=== PATIENT | male | born 1980 | race Hispanic/Latino ===

== ENCOUNTER → 2017-11-08 07:52 | Outpatient (CLI) | payer OTHER, SELFPAY ==
[2017-11-08 10:41] LABS: Hemoglobin A1C% w Est Avg Glu 5.7 % (4.0-6.0)
[2017-11-08 11:09] LABS: Alanine Aminotransferase 41 IU/L (21-72); Albumin 4.3 g/dL (3.5-5.0); Albumin Globulin Ratio 1.6 (1.0-2.8); Alkaline Phosphatase 62 U/L (38-126); Aspartate Aminotransferase 31 IU/L (17-59); BUN Creatinine Ratio 11.1 (6-22); Bilirubin Total 0.6 mg/dL (0.2-1.3); Calcium 8.8 mg/dL (8.4-10.2); Estimated Glomerular Filt Rate > 60.0 mL/min (>60); Globulin 2.7 g/dL (1.7-4.1); Glucose 89 mg/dL (70-100); HEMOLYSIS 17 (0-50); Potassium 3.9 mmol/L (3.4-5.1); Sodium 137 mmol/L (137-145); Uric Acid 4.5 mg/dL (3.5-8.5)
[2017-11-08 13:17] LABS: Erythrocyte Sedimentation Rate 7 MM/HR (0-15)
== END ==
PROVIDERS: PCP Physician Assistant; Visit Provider Physician Assistant
DX: R60.0 Localized edema (principal); S99.912A Unspecified injury of left ankle, initial encounter; I10 Essential (primary) hypertension; E11.9 Type 2 diabetes mellitus without complications
CPT/HCPCS: 36415; 80053; 83036; 84550; 85651

== ENCOUNTER 2018-01-23 03:07 | Emergency (ER) | payer OTHER, SELFPAY ==
[2018-01-23 03:24] VITALS: BP 110/56; PULSE 72; RESP 16; TEMP 37.1; O2SAT 96; BMI 48.8
--- NOTE | 2018-01-23 04:21 | ED.SKABFB ---
HPI - Skin/Abscess/Foreign Bdy General Chief complaint: Skin/Abscess/Foreign Body Stated complaint: STATES COUPLE OF LEFTS UNDER LEFT ARMPIT Time Seen by Provider: 01/23/18 04:21 Source: patient Mode of arrival: ambulatory Limitations: no limitations History of Present Illness HPI narrative: The patient developed left axillary pain and swelling 3 days ago. Pain and swelling continues to increase. He denies fever but he has had chills. He has had no injury to that site. He has no injuries to the left arm. Three days ago he developed redness on his left chest, near his nipple. He has been in a hot tub, there has been no trauma at that site. He is diabetic, he has no chronic skin illness. Related Data Previous Rx's Medication Instructions Recorded [Glucometer ] #1 10/04/16 [Insulin Pen needles] #200 10/04/16 insulin aspart U-100 [Novolog 15 - 35 unit SQ TIDCC #10 units 10/13/16 Flexpen U-100 Insulin] insulin glargine [Lantus Solostar 30 unit SQ BID #5 units 10/13/16 U-100 Insulin] atorvastatin [Lipitor] 10 mg PO HS #90 tab 04/06/17 Glucose: Test Strips str 6XDAILY #50 07/11/17 trazodone 200 mg PO HSP PRN #60 tab 07/11/17 benzonatate [Tessalon Perles] 100 mg PO BIDP PRN #30 cap 08/22/17 fexofenadine 180 mg PO QDAYP PRN #30 tab 08/22/17 fluticasone 1 spray INTRANASAL QDAY #16 gm 08/22/17 cetirizine 10 mg PO BID #30 tab 09/29/17 nystatin [Nystop] 100,000 unit TOPICAL BID #30 gm 09/29/17 prednisone 20 mg PO Q DAY #3 tab 09/29/17 Lancet: Device ea #200 10/23/17 [place] ea #200 10/23/17 losartan [Cozaar] 50 mg PO BID #180 tab 10/25/17 testosterone cypionate 200 mg IM QWEEK #5 ea 10/26/17 [Depo-Testosterone] ziprasidone HCl [Geodon] 60 mg PO BID #60 cap 10/26/17 fluoxetine 80 mg PO HS #60 cap 12/26/17 prazosin [Minipress] 10 mg OR HS #60 cap 12/26/17 propranolol 40 mg PO TID #90 tab 12/26/17 amoxicillin-pot clavulanate 1 tab PO BID #20 tab 01/23/18 [Augmentin] Allergies Allergy/AdvReac Type Severity Reaction Status Date / Time No Known Drug Allergies Allergy Verified 01/23/18 03:30 Review of Systems Constitutional Reports chills, Denies fever(s), Reports lethargy and Denies weakness Cardiovascular Denies chest pain, Denies rapid heart rate, Denies edema and Reports dyspnea Respiratory Denies change in phlegm color, Denies chest congestion, Denies cough and Reports dyspnea Gastrointestinal Gastrointestinal: Denies abdominal pain, Denies nausea and Denies vomiting Musculoskeletal Denies back pain and Denies muscle weakness Integumentary/Breasts Reports as per HPI, Reports erythema and Reports skin swelling Neurologic Denies weakness PFSH Family History Father Hyperlipidemia Mother Diabetes mellitus Hypertension Hyperlipidemia Social History Smoking Status: Never smoker Exam Initial Vital Signs Initial Vital Signs: Vital Signs Temperature 98.8 F 01/23/18 03:24 Pulse Rate 72 01/23/18 03:24 Respiratory Rate 16 01/23/18 03:24 Blood Pressure 110/56 L 01/23/18 03:24 Pulse Oximetry 96 01/23/18 03:24 Const General: cooperative, healthy appearing, comfortable, well developed, well groomed and No diaphoretic Neck Neck: No lymphadenopathy and No tender Chest Chest: other (Erythema at 5 o'clock just outside the left nipple. Slight tenderness and warmth to the site. No mass.) Resp Auscultation: clear to auscultation bilaterally Cardio Rate: regular rate Rhythm: regular rhythm Heart Sounds: no click, no gallops, no murmurs and no rubs Pulses: normal peripheral pulses Skin General: other (Erythema in the left axilla with palpable, enlarged tender lymphadenopathy. One node is about 1.5 cm. The other node is 0.5 cm.) Procedures Misc Procedure Name of Procedure: Wound aspiration: The patient has an area of swelling and tenderness in the left axilla. What appeared to be a fluid-filled cavity was identified with ultrasound. I attempted to aspirate the site with an 18 gauge needle. There was a slight amount of bloody discharge, no purulent discharge. Patient tolerated procedure well. Course Hospital Course: He was started on Augmentin prior to discharge. Vital Signs - 8 hr 01/23/18 03:24 Temperature 98.8 F Pulse Rate 72 Respiratory Rate 16 Blood Pressure 110/56 L Pulse Oximetry 96 Discharge Plan Departure Patient Disposition: Home, Self-Care Clinical Impression: Acute lymphangitis of axilla Instructions: DI for Lymphangitis-Adult Activity Restrictions/Additional Instructions: Take the Augmentin as prescribed. Advil 3 tablets every 6 hr as needed for pain. Return here for increasing redness, increased swelling, or fever. Prescriptions: New amoxicillin-pot clavulanate [Augmentin] 875-125 mg tablet 1 tab PO BID Qty: 20 RF: 0 No Action [Insulin Pen needles] Qty: 200 RF: 11 [Glucometer ] Qty: 1 RF: 0 insulin aspart U-100 [Novolog Flexpen U-100 Insulin] 100 UNIT/1 ML insulin pen 15 - 35 unit SQ TIDCC Qty: 10 RF: 11 insulin glargine [Lantus Solostar U-100 Insulin] 100 UNIT/1 ML insulin pen 30 unit SQ BID Qty: 5 RF: 11 atorvastatin [Lipitor] 10 MG tablet 10 mg PO HS Qty: 90 RF: 3 Glucose: Test Strips 6XDAILY Qty: 50 RF: 6 trazodone 100 MG tablet 200 mg PO HSP PRNQty: 60 RF: 5 fexofenadine 180 MG tablet 180 mg PO QDAYP PRNQty: 30 RF: 1 benzonatate [Tessalon Perles] 100 MG capsule 100 mg PO BIDP PRNQty: 30 RF: 1 fluticasone 16 GM spray,suspension 1 spray Intranasal QDAY Qty: 16 RF: 0 cetirizine 10 MG tablet 10 mg PO BID Qty: 30 RF: 0 prednisone 20 MG tablet 20 mg PO Q DAY Qty: 3 RF: 0 nystatin [Nystop] 30 GM powder 100,000 unit Topical BID Qty: 30 RF: 0 [place] Qty: 200 RF: 6 Lancet: Device Qty: 200 RF: 6 losartan [Cozaar] 50 MG tablet 50 mg PO BID Qty: 180 RF: 3 testosterone cypionate [Depo-Testosterone] 200 MG/1 ML oil 200 mg IM QWEEK Qty: 5 RF: 5 ziprasidone HCl [Geodon] 60 MG capsule 60 mg PO BID Qty: 60 RF: 3 prazosin [Minipress] 5 mg capsule 10 mg OR HS Qty: 60 RF: 5 fluoxetine 40 mg capsule 80 mg PO HS Qty: 60 RF: 3 propranolol 40 mg tablet 40 mg PO TID Qty: 90 RF: 3
[2018-01-23] MEDS: AMOXICILLIN/CLAV 875/125 MG 1 TAB PO (05:40)
[2018-01-23 05:46] VITALS: BP 109/52; PULSE 68; RESP 20; O2SAT 94
[2018-01-23 06:03] VITALS: BP 112/82; PULSE 74; RESP 16; O2SAT 100
== END 2018-01-23 06:05 | disposition home or self-care (01) ==
PROVIDERS: Emergency Provider Emergency Medicine; Family Provider Physician Assistant; PCP Physician Assistant
DX: L03.129 Acute lymphangitis of unspecified part of limb (principal)
CPT/HCPCS: 99282; 99283

== ENCOUNTER → 2018-02-06 06:56 | Outpatient (CLI) | payer OTHER, SELFPAY ==
[2018-02-06 08:50] LABS: Creatinine Urine Random 245.1 mg/dL
[2018-02-06 08:54] LABS: Alanine Aminotransferase 52 IU/L (21-72); Albumin 4.2 g/dL (3.5-5.0); Albumin Globulin Ratio 1.5 (1.0-2.8); Alkaline Phosphatase 55 U/L (38-126); Aspartate Aminotransferase 41 IU/L (17-59); BUN Creatinine Ratio 11.1 (6-22); Bilirubin Total 0.7 mg/dL (0.2-1.3); Blood Urea Nitrogen 10 mg/dL (9-20); Calcium 8.7 mg/dL (8.4-10.2); Carbon Dioxide 32 mmol/L (22-32); Chloride 96 mmol/L (98-107); Cholesterol 127 mg/dL (140-199); Estimated Glomerular Filt Rate > 60.0 mL/min (>60); Globulin 2.8 g/dL (1.7-4.1); Glucose 97 mg/dL (70-100); HDL Cholesterol 27 mg/dL (40-60); HEMOLYSIS 15 (0-50); LDL Cholesterol Calculated 63 mg/dL (<100); Potassium 3.6 mmol/L (3.4-5.1); Sodium 137 mmol/L (137-145); Triglycerides 183 mg/dL (35-150)
[2018-02-06 08:55] LABS: Microalbumi Creatinin Ratio Ur 10.6 ug/mg CR (<30); Microalbumin Urine Random 2.6 mg/dL (0-1.6)
[2018-02-06 09:06] LABS: Vitamin D 25 Hydroxy (D3) 24.1 ng/mL (30.0-100.0)
[2018-02-07 05:17] LABS: Hemoglobin A1C% w Est Avg Glu 5.7 % (4.0-6.0)
[2018-02-12 15:15] LABS: Albumin 4.3
== END ==
PROVIDERS: PCP Family Medicine; Visit Provider Physician Assistant
DX: E11.9 Type 2 diabetes mellitus without complications (principal); R79.89 Other specified abnormal findings of blood chemistry; E55.9 Vitamin D deficiency, unspecified
CPT/HCPCS: 36415; 80053; 80061; 82040; 82043; 82306; 82570; 83036; 84270; 84403

== ENCOUNTER → 2018-03-02 09:33 | Outpatient (CLI) | payer OTHER, SELFPAY ==
[2018-03-02 11:36] LABS: Hepatitis B Surface Antigen NEGATIVE s/c (NEGATIVE)
[2018-03-02 11:54] LABS: HIV 1 and 2 Antibody NEGATIVE (NEGATIVE); Hep C Virus Ab w/Reflex Quant NEGATIVE s/c (NEGATIVE)
[2018-03-02 13:22] LABS: Urine N gonorrhoeae NOT DETECTED
[2018-03-02 13:35] LABS: Urine Chlamydia NOT DETECTED
[2018-03-09 08:01] LABS: Rapid Plasma Reagin NON-REACTIVE
== END ==
PROVIDERS: Family Provider Physician Assistant; PCP Physician Assistant; Visit Provider Physician Assistant
DX: Z11.3 Encounter for screening for infections with a predominantly sexual mode of transmission (principal)
CPT/HCPCS: 36415; 86592; 86703; 86803; 87340; 87491; 87591

== ENCOUNTER 2018-04-22 03:14 | Emergency (ER) | payer OTHER, SELFPAY ==
--- NOTE | 2018-04-22 03:20 | ED.SKABFB ---
HPI - Skin/Abscess/Foreign Bdy General Chief complaint: Skin/Abscess/Foreign Body Stated complaint: rash all over neck for 1 week itchy everywhere Time Seen by Provider: 04/22/18 03:20 Source: patient Mode of arrival: ambulatory Limitations: no limitations History of Present Illness HPI narrative: Patient is a 37-year-old male who presents with all rash just around her neck. He says been there for about a week extremely pruritic. He says he has had this off and on throughout his life some doctors have diagnosed him with tinea versicolor, other is a fungus. He said last time he had this about 6 months ago he got prednisone and Benadryl he said it went away. He is requesting prednisone today. The itching has prevented him from sleeping tonight. The rash is no were else on his body. He says his blood sugars have been well controlled with insulin. He denies any new soaps the he does not were necklaces he does work colored daily. MD complaint: rash Related Data Previous Rx's Medication Instructions Recorded [Glucometer ] #1 10/04/16 [Insulin Pen needles] #200 10/04/16 Lancet: Device ea #200 10/23/17 [place] ea #200 10/23/17 losartan [Cozaar] 50 mg PO BID #180 tab 10/25/17 Glucose: Test Strips #1 ea 01/26/18 insulin aspart U-100 100 unit/mL 15 - 35 unit SUBCUT TIDCC #10 units 01/30/18 subcutaneous pen insulin glargine (U-100) 100 30 unit SUBCUT BID #5 units 01/30/18 unit/mL (3 mL) subcutaneous pen atorvastatin 10 mg tablet 10 mg PO HS #90 tab 02/01/18 fluoxetine 40 mg capsule 80 mg PO HS #180 cap 02/01/18 prazosin 5 mg capsule 10 mg PO HS #180 cap 02/01/18 propranolol 40 mg tablet 40 mg PO TID #270 tab 02/01/18 trazodone 100 mg tablet 200 mg PO HSP PRN #180 tab 02/01/18 ziprasidone 60 mg capsule 60 mg PO BID #180 cap 02/01/18 insulin regular human U-500 See Label Instructions SUBCUT ONCE 02/02/18 concentrate 500 unit/mL(3 mL) #6 ml subcut pen diphenhydramine HCl [Benadryl] 25 mg PO Q6H PRN #20 cap 04/22/18 hydrocortisone 1 applictn TOP BID PRN #14.2 gram 04/22/18 Allergies Allergy/AdvReac Type Severity Reaction Status Date / Time No Known Drug Allergies Allergy Verified 03/02/18 09:11 Review of Systems Review of Systems GENERAL: Denies chills,fever HEENT: Denies throat pain RESPIRATORY: Denies dyspnea, cough, wheezing CARDIOVASCULAR: Denies chest pain, palpitations GASTROINTESTINAL: Denies nausea, vomiting MUSCULOSKELETAL: Denies extremity pain, injury SKIN: See HPI NEUROLOGIC: Denies weakness, dizziness, headache, numbness 8 point review of systems is negative except for those stated above and HPI PFSH Medical History Colitis (Acute) Anxiety (Chronic) Bipolar disorder (Chronic) Chronic back pain (Chronic) Depression (Chronic) Diabetes (Chronic) Erectile dysfunction (Chronic) Hyperlipemia (Chronic) Hypertension (Chronic) Low testosterone (Chronic) PTSD (post-traumatic stress disorder) (Chronic) Schizophrenia (Chronic) Surgical History Hx of discectomy (Resolved 2009) Hx of surgical procedure (Resolved 2005) Social History Smoking Status: Never smoker second hand exposure: No alcohol intake: never substance use type: does not use Exam Initial Vital Signs Initial Vital Signs: Vital Signs Temperature 97.1 F L 04/22/18 03:21 Pulse Rate 59 L 04/22/18 03:21 Respiratory Rate 16 04/22/18 03:21 Blood Pressure 131/80 04/22/18 03:21 Pulse Oximetry 97 04/22/18 03:21 GENERAL: Morbidly obese well-appearing male no acute distress HEENT: Head atraumatic,EOMI, pupils reactive, face symmetric CARDIOVASCULAR: Regular rate and rhythm without murmurs, rubs or gallops. RESPIRATORY: Breath sounds equal bilaterally, no wheezes rales or rhonchi. EXTREMITIES: Normal range of motion, no clubbing or edema. Neurovascularly intact NEUROLOGICAL: Alert and oriented x4.Normal gait and speech. Cranial nerves II through XII grossly intact. SKIN: Minimal redness noted on right and left side within the creases of the neck no rash or erythema posterior neck no other rash noted on any part of the body. No hives no petechiae or vesicles. Course Orders Ordered: Diphenhydramine HCl (Benadryl) 50 mg PO NOW ONE Stop: 04/22/18 03:36 Last Admin: 04/22/18 03:35 Dose: 50 mg Discontinued Medications Prednisone (Deltasone) 20 mg PO NOW ONE Stop: 04/22/18 03:29 Last Admin: 04/22/18 03:33 Dose: 20 mg Vital Signs - 8 hr 04/22/18 03:21 Temperature 97.1 F L Pulse Rate 59 L Respiratory Rate 16 Blood Pressure 131/80 Pulse Oximetry 97 MDM - Skin/Abscess/Foreign Bdy MDM Narrative Medical decision making narrative: Patient is fairly adamant about getting a dose of prednisone. I did try to explain he does not need systemic medication topical cream a work just fine. I also recommended [id number] Benadryl which he would like a prescription for. His appointment with his PCP in 5 days. Discharge Plan Departure Patient Disposition: Home Clinical Impression: Dermatitis Discharge Date/Time: 04/22/18 03:37 Instructions: Eczema, Contact Dermatitis Activity Restrictions/Additional Instructions: *You have been diagnosed with dermatitis *What to do: This is localized and likely caused by something that is directly irritating it and it prescription for prednisone is not indicated at this time *Continue to take medications as directed: Prescriptions have been faxed to [facility] in [place] Hydrocortisone cream twice a day for 1 week Benadryl 25-50 mg every 6 hr if needed for severe itching this does cause drowsiness *Follow up with your primary care provider in 2-3 days *Return to ER if you should have any new, worsening or concerning symptoms Prescriptions: New hydrocortisone 1 % cream 1 applictn TOP BID PRN (Reason: skin irritation) Qty: 14.2 RF: 0 diphenhydramine HCl [Benadryl] 25 mg capsule 25 mg PO Q6H PRN (Reason: itching) Qty: 20 RF: 0 No Action fluoxetine 40 mg capsule 80 mg PO HS Qty: 180 RF: 3 atorvastatin [Lipitor] 10 mg tablet 10 mg PO HS Qty: 90 RF: 3 prazosin [Minipress] 5 mg capsule 10 mg PO HS Qty: 180 RF: 3 propranolol 40 mg tablet 40 mg PO TID Qty: 270 RF: 3 trazodone 100 mg tablet 200 mg PO HSP PRN (Reason: insomnia) Qty: 180 RF: 1 ziprasidone HCl [Geodon] 60 mg capsule 60 mg PO BID Qty: 180 RF: 3 [Insulin Pen needles] Qty: 200 RF: 11 [Glucometer ] Qty: 1 RF: 0 [place] Qty: 200 RF: 6 Lancet: Device Qty: 200 RF: 6 losartan [Cozaar] 50 MG tablet 50 mg PO BID Qty: 180 RF: 3 Glucose: Test Strips .Route .MEDSUPPLY Qty: 1 RF: 6 insulin aspart U-100 [Novolog Flexpen U-100 Insulin] 100 unit/mL insulin pen 15 - 35 unit SUBCUT TIDCC Qty: 10 RF: 11 insulin glargine [Lantus Solostar U-100 Insulin] 100 unit/mL (3 mL) insulin pen 30 unit SUBCUT BID Qty: 5 RF: 11 insulin regular hum U-500 conc [Humulin R U-500 (Conc) Kwikpen] 500 unit/mL (3 mL) insulin pen See Label Instructions SUBCUT ONCE Qty: 6 RF: 3
[2018-04-22 03:21] VITALS: BP 131/80; PULSE 59; RESP 16; TEMP 36.2; O2SAT 97; BMI 46.1
[2018-04-22] MEDS: predniSONE 20 MG TABLET PO (03:33)
[2018-04-22] MEDS: diphenhydrAMINE 25 MG TABLET 50 MG PO (03:35)
== END 2018-04-22 03:37 | disposition home or self-care (01) ==
PROVIDERS: Emergency Provider Emergency Medicine; Family Provider Physician Assistant; PCP Physician Assistant
DX: L30.9 Dermatitis, unspecified (principal)
CPT/HCPCS: 99282; 99283

== ENCOUNTER → 2018-06-26 06:50 | Outpatient (CLI) | payer OTHER, SELFPAY ==
[2018-06-26 08:30] LABS: Add Manual Diff / Slide Review NO; Basophils Percent Auto 0.4 % (0-2); Eosinophils Percent Auto 0.5 % (2-4); Hematocrit 41.5 % (41-53); Lymphocytes Percent Auto 39.7 % (25-40); Mean Corpuscular HGB Conc 33.7 % (30-36); Mean Corpuscular Hemoglobin 31.5 PG (26-34); Mean Corpuscular Volume 93.5 fL (80-100); Monocytes Percent Auto 8.1 % (3-14); Neutrophils Absolute Auto 3000 /uL (1500-7000); Neutrophils Percent Auto 51.3 % (50-75); Platelet Count 165 X10^3/uL (150-400); Red Blood Cell Count 4.44 X10^6/uL (4.5-5.9); Red Cell Distribution Width 14.3 % (11.6-14.8); White Blood Cell Count 5.9 X10^3/uL (4.5-11.0)
[2018-06-26 08:57] LABS: Alanine Aminotransferase 56 IU/L (21-72); Albumin 4.3 g/dL (3.5-5.0); Albumin Globulin Ratio 1.4 (1.0-2.8); Alkaline Phosphatase 71 U/L (38-126); Aspartate Aminotransferase 28 IU/L (17-59); Bilirubin Total 0.4 mg/dL (0.2-1.3); Blood Urea Nitrogen 8 mg/dL (9-20); Calcium 8.8 mg/dL (8.4-10.2); Carbon Dioxide 28 mmol/L (22-32); Chloride 102 mmol/L (98-107); Estimated Glomerular Filt Rate > 60.0 mL/min (>60); Glucose 97 mg/dL (70-100); HEMOLYSIS < 15 (0-50); Potassium 4.1 mmol/L (3.4-5.1); Sodium 143 mmol/L (137-145); Total Protein 7.3 g/dL (6.3-8.2)
[2018-06-26 10:22] LABS: Hepatitis B Surface Antigen NEGATIVE s/c (NEGATIVE)
[2018-06-26 10:54] LABS: HIV 1 and 2 Antibody NEGATIVE (NEGATIVE); Hep C Virus Ab w/Reflex Quant NEGATIVE s/c (NEGATIVE)
[2018-06-26 11:08] LABS: Urine N gonorrhoeae NOT DETECTED
[2018-06-26 12:35] LABS: Urine Chlamydia NOT DETECTED
[2018-06-27 21:27] LABS: RPR Screen Nonreactive (Nonreactive)
== END ==
PROVIDERS: Family Provider Physician Assistant; PCP Physician Assistant; Visit Provider Physician Assistant
DX: R19.7 Diarrhea, unspecified (principal); Z11.3 Encounter for screening for infections with a predominantly sexual mode of transmission
CPT/HCPCS: 36415; 80053; 85025; 86592; 86703; 86803; 87015; 87045; 87340; 87427; 87491; 87591; 87899

== ENCOUNTER 2018-07-10 11:53 | Emergency (ER) | payer OTHER, SELFPAY ==
[2018-07-10 11:57] VITALS: BP 116/73; PULSE 62; RESP 20; TEMP 36.1; O2SAT 97; BMI 48.0
== END 2018-07-10 12:54 | disposition left against medical advice (07) ==
PROVIDERS: Family Provider Physician Assistant; PCP Physician Assistant
DX: K62.5 Hemorrhage of anus and rectum (principal)
CPT/HCPCS: 99281; 99282

== ENCOUNTER → 2018-07-24 09:28 | Outpatient (CLI) | payer OTHER, SELFPAY | PROVIDERS: Family Provider Physician Assistant; PCP Physician Assistant; Visit Provider Physician Assistant | DX: L02.91 Cutaneous abscess, unspecified (principal) | CPT/HCPCS: 87070; 87077; 87147; 87205 ==

== ENCOUNTER → 2018-08-30 11:05 | Outpatient (CLI) | payer OTHER, SELFPAY ==
[2018-08-30 12:15] LABS: Hemoglobin A1C% w Est Avg Glu 5.4 % (4.0-6.0)
[2018-08-30 12:21] LABS: Cholesterol 177 mg/dL (140-199); HDL Cholesterol 36 mg/dL (40-60); LDL Cholesterol Calculated 91 mg/dL (<100); Triglycerides 252 mg/dL (35-150)
[2018-08-30 12:35] LABS: Vitamin D 25 Hydroxy (D3) 25.1 ng/mL (30.0-100.0)
[2018-08-30 13:16] LABS: HIV 1 and 2 Antibody NEGATIVE (NEGATIVE); Hep C Virus Ab w/Reflex Quant NEGATIVE s/c (NEGATIVE)
[2018-08-30 13:29] LABS: Urine N gonorrhoeae NOT DETECTED
[2018-08-30 13:37] LABS: Urine Chlamydia NOT DETECTED
[2018-08-31 15:13] LABS: Hepatitis B Core Antibody Nonreactive (Nonreactive)
[2018-09-01 14:06] LABS: RPR Screen Nonreactive (Nonreactive)
[2018-09-01 19:17] LABS: HSV 1 IgM Screen Negative (Negative); HSV 2 IgM Screen Negative (Negative)
== END ==
PROVIDERS: Family Provider Physician Assistant; PCP Physician Assistant; Visit Provider Physician Assistant
DX: Z11.3 Encounter for screening for infections with a predominantly sexual mode of transmission (principal); E11.9 Type 2 diabetes mellitus without complications; E55.9 Vitamin D deficiency, unspecified; E66.01 Morbid (severe) obesity due to excess calories; Z68.43 Body mass index [BMI] 50.0-59.9, adult
CPT/HCPCS: 80061; 82306; 83036; 86592; 86694; 86703; 86704; 86803; 87491; 87591

== ENCOUNTER 2018-09-12 22:44 | Emergency (ER) | payer OTHER, SELFPAY ==
[2018-09-12 22:54] VITALS: BP 136/63; PULSE 72; RESP 18; TEMP 36.4; O2SAT 98; BMI 51.5
--- NOTE | 2018-09-13 00:48 | ED_ITS ---
HPI - Skin/Abscess/Foreign Bdy General Chief complaint: Skin/Abscess/Foreign Body Stated complaint: STATES INFECTION IN WAISTBAND AREA Time Seen by Provider: 09/13/18 00:33 Source: patient Mode of arrival: ambulatory Limitations: no limitations History of Present Illness HPI narrative: The patient has a area on his right lower abdomen he refers to as an abscess. The lesions started 3 weeks ago, he describes a red hot area with tenderness. There was no purulent drainage. He has no fever or chills. He is diabetic, however his hemoglobin A1c shows significant well-controlled. He is having ongoing swelling to the area. There is no redness at this time. There is no purulent discharge. He has had no injury to the site. He has no chronic skin disease. Related Data Home Medications Medication Instructions Recorded Confirmed Fluoxetine 40 mg See Rx Instructions .ROUTE .COMPLEX 04/26/18 08/31/18 One Touch Test Strips #1 ea 04/26/18 08/31/18 Previous Rx's Medication Instructions Recorded [Glucometer ] #1 10/04/16 [Insulin Pen needles] #200 10/04/16 Lancet: Device ea #200 10/23/17 [place] ea #200 10/23/17 losartan [Cozaar] 50 mg PO BID #180 tab 10/25/17 insulin glargine (U-100) 100 30 unit SUBCUT BID #5 units 01/30/18 unit/mL (3 mL) subcutaneous pen atorvastatin 10 mg tablet 10 mg PO HS #90 tab 02/01/18 prazosin 5 mg capsule 10 mg PO HS #180 cap 02/01/18 propranolol 40 mg tablet 40 mg PO TID #270 tab 02/01/18 ziprasidone 60 mg capsule 60 mg PO BID #180 cap 02/01/18 insulin regular human U-500 See Rx Instructions SUBCUT ONCE #6 02/02/18 concentrate 500 unit/mL(3 mL) ml subcut pen diphenhydramine HCl [Benadryl] 25 mg PO Q6H PRN #20 cap 04/22/18 hydrocortisone 1 applictn TOP BID PRN #14.2 gram 04/22/18 trazodone 100 mg tablet 200 mg PO HSP PRN #180 tab 09/10/18 Allergies Allergy/AdvReac Type Severity Reaction Status Date / Time No Known Drug Allergies Allergy Verified 08/31/18 10:32 Review of Systems Review of Systems ROS Unobtainable: All systems reviewed & are unremarkable except as noted in HPI and below Constitutional Denies chills and Denies fever(s) Gastrointestinal Gastrointestinal: Denies abdominal pain Integumentary/Breasts Comments: Lesion on right lower abdomen [facility] Medical History Colitis (Acute) Anxiety (Chronic) Bipolar disorder (Chronic) Chronic back pain (Chronic) Depression (Chronic) Diabetes (Chronic) Erectile dysfunction (Chronic) Hyperlipemia (Chronic) Hypertension (Chronic) Low testosterone (Chronic) PTSD (post-traumatic stress disorder) (Chronic) Schizophrenia (Chronic) Surgical History Hx of discectomy (Resolved 2009) Hx of surgical procedure (Resolved 2005) Family History Father Hyperlipidemia Mother Diabetes mellitus Hypertension Hyperlipidemia Grandfather Cancer Grandmother Cancer Social History Smoking Status: Never smoker second hand exposure: No alcohol intake: never substance use type: does not use Social History Smoking Status: Never smoker second hand exposure: No alcohol intake: never substance use type: does not use additional social history: No current social issues Exam Initial Vital Signs Initial Vital Signs: Vital Signs Temperature 97.6 F 09/12/18 22:54 Pulse Rate 72 09/12/18 22:54 Respiratory Rate 18 09/12/18 22:54 Blood Pressure 136/63 09/12/18 22:54 Pulse Oximetry 98 09/12/18 22:54 GI Inspection: non-distended and obesity Skin Other: 2 cm x 1 0.5 cm raised area in the right lower quadrant that is fluctuant. There is no erythema. No other skin lesions. Procedures Abscess I/D Site: abdomen Side (if applicable): right Local Anesthetic: lidocaine 1% Amount of anesthesia used (mL): 2 Technique: incised with #11 blade Amount of fluid expressed (mL): 1.5 Irrigation: Yes Packing used?: iodoform Complications: other (There was bloody discharge from the site with a hematoma. No purulence. ) Course Course Narrative: The patient describes a site that initially presented as an abscess, there is erythema and inflammation. He did respond to antibiotics. He now has a hematoma. The hematoma was drained and packed. Vital Signs - 8 hr 09/12/18 22:54 Temperature 97.6 F Pulse Rate 72 Respiratory Rate 18 Blood Pressure 136/63 Pulse Oximetry 98 Discharge Plan Departure Patient Disposition: Home Clinical Impression: Abdominal wall hematoma Qualifiers: Encounter type: initial encounter Qualified Code(s): S30.1XXA - Contusion of abdominal wall, initial encounter Instructions: DI for Incision and Drainage Activity Restrictions/Additional Instructions: Keep the site covered other than when showering. Put a bandage on until the site drives. Follow-up with her doctor in about 3 days. Return here as needed. Prescriptions: No Action Fluoxetine 40 mg See Patient Comments .ROUTE .COMPLEX RF: 0 One Touch Test Strips Qty: 1 RF: 0 atorvastatin [Lipitor] 10 mg tablet 10 mg PO HS Qty: 90 RF: 3 prazosin [Minipress] 5 mg capsule 10 mg PO HS Qty: 180 RF: 3 propranolol 40 mg tablet 40 mg PO TID Qty: 270 RF: 3 ziprasidone HCl [Geodon] 60 mg capsule 60 mg PO BID Qty: 180 RF: 3 [Insulin Pen needles] Qty: 200 RF: 11 [Glucometer ] Qty: 1 RF: 0 [place] Qty: 200 RF: 6 Lancet: Device Qty: 200 RF: 6 losartan [Cozaar] 50 MG tablet 50 mg PO BID Qty: 180 RF: 3 insulin glargine [Lantus Solostar U-100 Insulin] 100 unit/mL (3 mL) insulin pen 30 unit SUBCUT BID Qty: 5 RF: 11 insulin regular hum U-500 conc [Humulin R U-500 (Conc) Kwikpen] 500 unit/mL (3 mL) insulin pen See Rx Instructions SUBCUT ONCE Qty: 6 RF: 3 trazodone 100 mg tablet 200 mg PO HSP PRN (Reason: insomnia) Qty: 180 RF: 0 hydrocortisone 1 % cream 1 applictn TOP BID PRN (Reason: skin irritation) Qty: 14.2 RF: 0 diphenhydramine HCl [Benadryl] 25 mg capsule 25 mg PO Q6H PRN (Reason: itching) Qty: 20 RF: 0 Referrals: Mary Grace Cruz PA-C [Primary Care Provider] -
[2018-09-13 01:50] VITALS: BP 122/70; PULSE 76; RESP 18; O2SAT 99
== END 2018-09-13 01:51 | disposition home or self-care (01) ==
PROVIDERS: Emergency Provider Emergency Medicine; Family Provider Physician Assistant; PCP Physician Assistant
DX: S30.1XXA Contusion of abdominal wall, initial encounter (principal)
CPT/HCPCS: 10140; 99282; 99283

== ENCOUNTER 2018-09-19 07:27 | Inpatient (IN) | payer OTHER, SELFPAY ==
[2018-09-19] VITALS (9 sets, daily range): BP systolic 109–147; BP diastolic 67–112; PULSE 55–66; RESP 15–20; TEMP 36.3–37.2; O2SAT 96–98; BMI 51.2
--- NOTE | 2018-09-19 | DI.US.S_ITS ---
PROCEDURE: US ABDOMEN COMPLETE INDICATIONS: RULE OUT BILIARY SLUDGE TECHNIQUE: Real-time scanning was performed of the abdominal and retroperitoneal organs, with image documentation. COMPARISON: [facility], CT, CT ABDOMEN PELVIS W CON, 09/19/2018, 8:24. FINDINGS: Quality of visualization is quite limited by very large patient body habitus. Liver: Liver is normal in size and homogeneous in echotexture, hyperechoic consistent with fatty infiltration. Gallbladder: The gallbladder wall appears minimally thickened at 4 mm. No sonographic tenderness is present. Sludge appears present likely within the gallbladder lumen but as noted above quality of visualization is limited. No stones are suspected, however. Biliary ducts: Intrahepatic bile ducts are non-dilated. Extrahepatic bile duct caliber measures 4.0, poorly visualized mm. Normal is 6-7 mm or less in diameter, or 10 mm or less post-cholecystectomy. Pancreas: Poorly visualized due to body habitus and bowel gas. Spleen: Not well-seen due to body habitus and bowel gas. Kidneys: Kidneys are normal in size and echotexture. Right kidney measures 14.0 cm long; left kidney measures 13.4 cm long. No hydronephrosis or nephrolithiasis. No solid masses. Aorta: Visualized aorta is normal in caliber at less than 3 cm. Iliacs: Proximal common iliac arteries are normal in caliber at less than 2.5 cm. IVC: Intrahepatic inferior vena cava is patent. Miscellaneous: No free abdominal fluid. IMPRESSION: Large body habitus and overlying bowel gas obscures significant portions of the peritoneal space in the retroperitoneum. This study shows what appears to be fatty infiltration throughout the liver. It is hyperechoic as a result. Stones are not found within the gallbladder lumen of the gallbladder wall is slightly thickened at 4 mm and contains presumed sludge but no biliary distention is associated. Poor visualization of the pancreas and spleen due to body habitus and bowel gas. Please refer to prior CT scanning earlier same day for further discussion. Overall a definite source of current symptomatology is not seen. Dictated by: Kole Bhagat M.D. on 09/19/2018 at 16:39 Approved by: Kole Bhagat M.D. on 09/19/2018 at 16:44
--- NOTE | 2018-09-19 08:04 | ED.ABDPAIN ---
HPI - Abdominal Pain General Chief Complaint: Abdominal Pain Stated Complaint: L SIDE LOWER ABDOMINAL PAIN Time Seen by Provider: 09/19/18 08:04 Source: patient Mode of arrival: ambulatory Limitations: no limitations History of Present Illness HPI narrative: This is a 37-year-old male who comes to the emergency department with complaint of left lower quadrant pain that started about 24 hr ago. Patient states that it seems to be sort of a burning sensation but feels deep in his abdomen. Been pretty much constant. Nothing made it improved. Patient has not had any fevers, he has felt nauseated but had no vomiting. He has been constipated recently. He did have a bowel movement this morning and stated it was hard. Patient did have a incision and drainage of abdominal wall hematoma but that was on the right inguinal area. This is all on the left side. Patient had some burning with urination once. He has not had any discharge. He states he has been checked for STDs in the past and was negative. Patient has a history of insulin-dependent diabetes as well as hypertension which he takes medication for. He has had back surgery in the past. He states he does have a little bit of back pain that his normal but also has a little bit of that lower left quadrant pain sort of radiating towards the back. Related Data Home Medications Medication Instructions Recorded Confirmed One Touch Test Strips #1 ea 04/26/18 09/19/18 fluoxetine 40 mg capsule 80 mg PO DAILY 04/26/18 09/19/18 Lancet: Device 1 ea MISCELLANEOUS DIRECTED 09/19/18 09/19/18 [place] 1 ea MISCELLANEOUS DIRECTED 09/19/18 09/19/18 [Glucometer ] 1 ea MISCELLANEOUS DIRECTED 09/19/18 09/19/18 atorvastatin [Lipitor] 10 mg PO BEDTIME 09/19/18 09/19/18 insulin glargine [Basaglar KwikPen 10 - 30 units SUBCUT TID-QID 09/19/18 09/19/18 U-100 Insulin] prazosin [Minipress] 10 mg PO BEDTIME 09/19/18 09/19/18 trazodone 200 mg PO BEDTIME 09/19/18 09/19/18 Previous Rx's Medication Instructions Recorded losartan [Cozaar] 50 mg PO BID #180 tab 10/25/17 propranolol 40 mg tablet 40 mg PO TID #270 tab 07/26/18 ziprasidone 60 mg capsule 60 mg PO BID #180 cap 02/01/18 insulin regular human U-500 See Rx Instructions SUBCUT ONCE #6 02/02/18 concentrate 500 unit/mL(3 mL) ml subcut pen Allergies Allergy/AdvReac Type Severity Reaction Status Date / Time No Known Drug Allergies Allergy Verified 09/19/18 07:35 Review of Systems Review of Systems ROS Unobtainable: All systems reviewed & are unremarkable except as noted in HPI and below Constitutional Denies chills, Denies fever(s), Denies lethargy and Denies weakness Gastrointestinal Gastrointestinal: Reports abdominal pain (LLQ), Denies melena, Denies hematochezia, Denies change in bowel habits, Reports constipation, Denies diarrhea, Reports nausea and Denies vomiting Genitourinary Denies hematuria, Reports dysuria (once), Denies flank pain, Denies penile discharge, Denies testicular pain, Denies urinary frequency, Denies urinary hesitancy, Denies urinary incontinence and Denies urinary urgency Musculoskeletal Reports back pain (chronic) Integumentary/Breasts Denies erythema, Denies rash and Reports other (bruising from insulin) Neurologic Denies weakness Endocrine Reports other [facility] Medical History Colitis (Acute) Anxiety (Chronic) Bipolar disorder (Chronic) Chronic back pain (Chronic) Depression (Chronic) Diabetes (Chronic) Erectile dysfunction (Chronic) Hyperlipemia (Chronic) Hypertension (Chronic) Low testosterone (Chronic) PTSD (post-traumatic stress disorder) (Chronic) Schizophrenia (Chronic) Surgical History Hx of discectomy (Resolved 2009) Hx of surgical procedure (Resolved 2005) Family History Father Hyperlipidemia Mother Diabetes mellitus Hypertension Hyperlipidemia Grandfather Cancer Grandmother Cancer Social History household members: family Smoking Status: Never smoker second hand exposure: No alcohol intake: never substance use type: does not use additional social history: No current social issues Family History Father Hyperlipidemia Mother Diabetes mellitus Hypertension Hyperlipidemia Grandfather Cancer Grandmother Cancer Social History household members: family Smoking Status: Never smoker second hand exposure: No alcohol intake: never substance use type: does not use additional social history: No current social issues Exam Narrative Exam Narrative: GENERAL: Alert and oriented x three, Obese male in mild distress. HEENT: Head normocephalic, atraumatic, EOMI, pupils reactive, face symmetric, moist mucous membranes NECK: Supple, full range of motion CARDIOVASCULAR: Regular rate and rhythm without murmurs, rubs or gallops. RESPIRATORY: Breath sounds equal bilaterally, no wheezes rales or rhonchi. ABDOMEN: Soft, Positive for left lower quadrant tenderness just above the pelvis and iliac crest patient has several small areas of bruising consistent with insulin injection sites in which patient states that with these are from. There is no erythema, there is no swelling, fluctuance or signs of cellulitis or abscess. Normoactive bowel sounds all 4 quadrants. No guarding or rebound, rigidity, no mass : No CVA tenderness EXTREMITIES: Normal range of motion, no clubbing or edema. Neurovascularly intact NEUROLOGICAL: Cranial nerves II through XII grossly intact. Moving all extremities SKIN: Warm, dry, no petechiae, no rashes or lesions. Initial Vital Signs Initial Vital Signs: Vital Signs Temperature 98.9 F 09/19/18 07:35 Pulse Rate 64 09/19/18 07:35 Respiratory Rate 20 09/19/18 07:35 Blood Pressure 138/112 H 09/19/18 07:35 Pulse Oximetry 97 09/19/18 07:35 Course Orders Ordered: ED Orders 09/19/18 14:53 Education, smoking cessation ONGOING 09/20/18 05:00 Complete Blood Count AUTO DIFF Routine Comprehensive Metabolic Panel Routine 09/20/18 15:00 Lipase DAILY Bisacodyl (Dulcolax) 10 mg [place] DAILY PRN PRN Reason: Constipation Enoxaparin Sodium (Lovenox) 40 mg SUBCUT BID PATO Hydralazine HCl (Apresoline) 10 mg IV Q6HR PRN PRN Reason: Hypertension Hydromorphone HCl (Dilaudid) 1 mg IV Q4HRWA PRN PRN Reason: Pain, Moderate (4-6) Last Admin: 09/19/18 17:44 Dose: 1 mg Potassium Chloride/Sodium Chloride (Ns With Kcl 20 Meq) 1,000 mls @ 150 mls/hr IV CONT PATO Last Admin: 09/19/18 15:54 Dose: 150 mls/hr Potassium Chloride 20 meq/ (Dextrose/Sodium Chloride) 1,010 mls @ 150 mls/hr IV CONT PATO Insulin Glargine (Lantus Solostar (Pen)) 20 unit SUBCUT BEDTIME PATO Naloxone HCl (Narcan) 0.2 mg IV Q2MIN PRN PRN Reason: Opiate Reversal Ondansetron HCl (Zofran) 4 mg IV Q8HR PRN PRN Reason: Nausea And Vomiting Prazosin HCl (Minipress) 10 mg PO BEDTIME PATO Discontinued Medications Dextrose (D50w) 12.5 gm IV NOW ONE Stop: 09/19/18 17:30 Last Admin: 09/19/18 17:44 Dose: 12.5 gm Dextrose (D50w) 12.5 gm IV NOW ONE Stop: 09/19/18 18:37 Last Admin: 09/19/18 18:40 Dose: 12.5 gm Enoxaparin Sodium (Lovenox) 40 mg SUBCUT DAILY PATO Last Admin: 09/19/18 16:02 Dose: Not Given Sodium Chloride (Normal Saline 0.9%) 1,000 mls @ 1,000 mls/hr IV BOLUS ONE Stop: 09/19/18 09:17 Last Infusion: 09/19/18 09:51 Dose: 0 mls/hr Admin: 09/19/18 08:45 Dose: 1,000 mls/hr Insulin Aspart (Novolog) 1 unit SUBCUT NOW ONE; Protocol Stop: 09/19/18 14:54 Last Admin: 09/19/18 16:02 Dose: Not Given Ketorolac Tromethamine (Toradol) 15 mg IV NOW ONE Stop: 09/19/18 08:20 Last Admin: 09/19/18 08:45 Dose: 15 mg Morphine Sulfate (Morphine) 4 mg IV NOW ONE Stop: 09/19/18 12:38 Last Admin: 09/19/18 12:43 Dose: 4 mg Vital Signs - 8 hr 09/19/18 12:42 09/19/18 12:43 09/19/18 13:35 Temperature 97.4 F L Pulse Rate 59 L 63 55 L Respiratory Rate 15 18 16 Blood Pressure 127/73 Blood Pressure [Right Arm] 144/75 H 144/75 H Pulse Oximetry 98 98 98 09/19/18 15:50 09/19/18 16:19 Temperature 97.3 F L Pulse Rate 63 Respiratory Rate 18 Blood Pressure 138/85 Blood Pressure [Right Arm] Pulse Oximetry 98 98 MDM - Abdominal Pain Differential Diagnosis Differential diagnosis: Likely abdominal pain, calculus of kidney, constipation, diverticulitis, small bowel obstruction ( unlikely) and other ( cellulitis) Lab Data Attestation: I reviewed the patient's lab results. Result diagrams: 09/19/18 08:30 09/19/18 08:30 Lab Results 09/19/18 09/19/18 Range/Units 08:30 08:30 WBC 7.4 (4.5-11.0) X10^3/uL RBC 4.47 L (4.5-5.9) X10^6/uL Hgb 13.9 (13.5-17.5) g/dL Hct 40.3 L (41-53) % MCV 90.3 (80-100) fL MCH 31.2 (26-34) PG MCHC 34.6 (30-36) % RDW 14.4 (11.6-14.8) % Plt Count 177 (150-400) X10^3/uL Neut % (Auto) 54.4 (50-75) % Lymph % (Auto) 37.4 (25-40) % [place] % (Auto) 6.9 (3-14) % Eos % (Auto) 0.4 L (2-4) % Baso % (Auto) 0.9 (0-2) % Neut # (Auto) 4000 (4945-0357) /uL Lymph # (Auto) 2700 (2708-8750) /uL [place] # (Auto) 500 (0-900) /uL Eos # (Auto) 0 (0-450) /uL Baso # (Auto) 100 (0-100) /uL Sodium 137 (137-145) mmol/L Potassium 4.1 (3.4-5.1) mmol/L Chloride 100 (98-107) mmol/L Carbon Dioxide 25 (22-32) mmol/L BUN 14 (9-20) mg/dL Creatinine 0.70 (0.66-1.25) mg/dL Estimated GFR > 60.0 (>60) mL/min BUN/Creatinine Ratio 20.0 (6-22) Glucose 121 H (70-100) mg/dL Calcium 9.2 (8.4-10.2) mg/dL Total Bilirubin 0.4 (0.2-1.3) mg/dL AST 33 (17-59) IU/L ALT 63 (21-72) IU/L Alkaline Phosphatase 73 (38-126) U/L Total Protein 8.0 (6.3-8.2) g/dL Albumin 4.7 (3.5-5.0) g/dL Globulin 3.3 (1.7-4.1) g/dL Albumin/Globulin Ratio 1.4 (1.0-2.8) Lipase 2329 H (23-300) U/L Point of care testing: Point of Care Testing Glucose POC 71 Urine Dip Bedside Urine Glucose Negative Bedside Urine Bilirubin - Negative Bedside Urine Ketone - Negative Urine Specific [place] 1.010 Bedside Urine Occult Blood - Negative Bedside Urine pH 6.0 Bedside Urine Protein - Negative Bedside Urine Urobilinogen - Negative Bedside Urine Nitrite - Negative Bedside Urine Leukocytes - Negative Esterase Imaging Data CT scan - abdomen: Radiologist's impression: 8 Savanna Drake DO Find Patient Imaging Gustavo Mack 37 M 1980 ACTIVITY DATE EXAM STATUS AUTHOR 09/19/18 08:57 [place] [address] CT Scan Report Signed Patient: Gustavo Mack [facility]#: [id number] : 1980Acct:[id number] Age/Sex: 37 / MDate of Service: 09/19/18 Loc: ED Accession Number: [id number] Procedure: CT abdomen pelvis w con Ordering Provider: Savanna Drake D.O. PROCEDURE: CT ABDOMEN PELVIS W CON INDICATIONS: left lower quad pain, hx diabetes, htn TECHNIQUE: After the administration of intravenous contrast, 5 mm thick sections acquired from the diaphragm to the symphysis. 5 mm coronal and sagittal reformats were acquired. For radiation dose reduction, the following was used: automated exposure control, adjustment of mA and/or kV according to patient size. COMPARISON: [facility], CT, CT ABD PELVIS W CON, 06/13/2016, 13:38. FINDINGS: Image quality: Excellent. ABDOMEN: Lung bases: Lung bases are clear. Heart size is normal. Solid organs: Liver is normal in size and enhancement. Diffuse fatty infiltration of the liver. Liver is slightly nodular margins concerning for hepatic cirrhosis. Gallbladder is contracted, but within normal limits.. Biliary system is non dilated. Pancreas enhances normally. Spleen is normal in size and enhancement. No adrenal nodules. Kidneys demonstrate normal size and enhancement, without hydronephrosis. Peritoneum and bowel: Bowel loops demonstrate normal wall thickness and caliber. A few scattered diverticuli noted in the sigmoid colon without evidence of diverticulitis. No free fluid or air. The appendix is normal. Nodes and vessels: No retroperitoneal or mesenteric adenopathy by size criteria. Aorta and inferior vena cava are normal in size. Miscellaneous: No ventral hernias. PELVIS: Genitourinary: Bladder wall thickness is normal. Miscellaneous: No inguinal adenopathy. Small left fat containing inguinal hernia. Bones: No suspicious bony lesions. No vertebral body compression fractures. Lower lumbar spine degenerative disc disease and facet arthropathy. IMPRESSION: 1. No acute disease process. 2. No free fluid or free air. 3. No dilated loops of bowel. 4. The appendix is normal. 5. Few scattered sigmoid colon diverticula without evidence of diverticulitis. 6. Small fat-containing left inguinal hernia. 7. Hepatic steatosis. Liver has slightly nodular margins concerning for hepatic cirrhosis. Recommend correlation with laboratory data. Dictated by: Mahi Ham MD, PhD on 09/19/2018 at 9:35 Approved by: Mahi Ham MD, PhD on 09/19/2018 at 9:41 [facility] Narrative Medical decision making narrative: discussed with patient based on his area of discomfort I would suspect most likely a diverticulitis or possibly a constipation with his recent hard stool. There is no skin changes to make me suspicious for a cellulitis or abscess, hematoma. Patient could have a kidney stone with a little bit of radiation into flank. the patient's lipase is elevated in the [address] does not show any changes consistent pancreatitis nor does it show any concerning changes such as diverticulitis, small-bowel obstruction. He does have some hepatic steatosis. The patient's LFTs, alk-phos and bilirubin are all normal making a potential for choledocholithiasis low. Patient does have some triglyceridemia from a prior lab on 08/29 1-52. On further discussion patient states he only has 1 or 2 beers occasionally on a monthly basis. But he does specifically request that I do not speak with his family about this. I relate his request as well as our discussion to Dr. Escobedo. She accepts. Discharge Plan Departure Patient Disposition: Admitted as Observation Clinical Impression: Acute pancreatitis Discharge Date/Time: 09/19/18 12:30 Interventions: ED Discharge Assessment Last Done: 09/19/18 12:30 Referrals: Mary Grace Cruz PA-C [Primary Care Provider] - Admit Date/Time: 09/19/18 10:40 Admit Provider: Marion Escobedo
--- NOTE | 2018-09-19 08:28 | ED_ITS ---
HPI - Abdominal Pain General Chief Complaint: Abdominal Pain Stated Complaint: L SIDE LOWER ABDOMINAL PAIN Time Seen by Provider: 09/19/18 08:04 Source: patient Mode of arrival: ambulatory Limitations: no limitations History of Present Illness HPI narrative: This is a 37-year-old male who comes to the emergency department with complaint of left lower quadrant pain that started about 24 hr ago. Patient states that it seems to be sort of a burning sensation but feels deep in his abdomen. Been pretty much constant. Nothing made it improved. Patient has not had any fevers, he has felt nauseated but had no vomiting. He has been constipated recently. He did have a bowel movement this morning and stated it was hard. Patient did have a incision and drainage of abdominal wall hematoma but that was on the right inguinal area. This is all on the left side. Patient had some burning with urination once. He has not had any discharge. He states he has been checked for STDs in the past and was negative. Patient has a history of insulin-dependent diabetes as well as hypertension which he takes medication for. He has had back surgery in the past. He states he does have a little bit of back pain that his normal but also has a little bit of that lower left quadrant pain sort of radiating towards the back. Related Data Home Medications Medication Instructions Recorded Confirmed One Touch Test Strips #1 ea 04/26/18 09/19/18 fluoxetine 40 mg capsule 80 mg PO DAILY 04/26/18 09/19/18 Lancet: Device 1 ea MISCELLANEOUS DIRECTED 09/19/18 09/19/18 [place] 1 ea MISCELLANEOUS DIRECTED 09/19/18 09/19/18 [Glucometer ] 1 ea MISCELLANEOUS DIRECTED 09/19/18 09/19/18 atorvastatin [Lipitor] 10 mg PO BEDTIME 09/19/18 09/19/18 insulin glargine [Basaglar KwikPen 10 - 30 units SUBCUT TID-QID 09/19/18 09/19/18 U-100 Insulin] prazosin [Minipress] 10 mg PO BEDTIME 09/19/18 09/19/18 trazodone 200 mg PO BEDTIME 09/19/18 09/19/18 Previous Rx's Medication Instructions Recorded losartan [Cozaar] 50 mg PO BID #180 tab 10/25/17 propranolol 40 mg tablet 40 mg PO TID #270 tab 07/26/18 ziprasidone 60 mg capsule 60 mg PO BID #180 cap 02/01/18 insulin regular human U-500 See Rx Instructions SUBCUT ONCE #6 02/02/18 concentrate 500 unit/mL(3 mL) ml subcut pen Allergies Allergy/AdvReac Type Severity Reaction Status Date / Time No Known Drug Allergies Allergy Verified 09/19/18 07:35 Review of Systems Review of Systems ROS Unobtainable: All systems reviewed & are unremarkable except as noted in HPI and below Constitutional Denies chills, Denies fever(s), Denies lethargy and Denies weakness Gastrointestinal Gastrointestinal: Reports abdominal pain (LLQ), Denies melena, Denies hematochezia, Denies change in bowel habits, Reports constipation, Denies diarrhea, Reports nausea and Denies vomiting Genitourinary Denies hematuria, Reports dysuria (once), Denies flank pain, Denies penile discharge, Denies testicular pain, Denies urinary frequency, Denies urinary hesitancy, Denies urinary incontinence and Denies urinary urgency Musculoskeletal Reports back pain (chronic) Integumentary/Breasts Denies erythema, Denies rash and Reports other (bruising from insulin) Neurologic Denies weakness Endocrine Reports other [facility] Medical History Colitis (Acute) Anxiety (Chronic) Bipolar disorder (Chronic) Chronic back pain (Chronic) Depression (Chronic) Diabetes (Chronic) Erectile dysfunction (Chronic) Hyperlipemia (Chronic) Hypertension (Chronic) Low testosterone (Chronic) PTSD (post-traumatic stress disorder) (Chronic) Schizophrenia (Chronic) Surgical History Hx of discectomy (Resolved 2009) Hx of surgical procedure (Resolved 2005) Family History Father Hyperlipidemia Mother Diabetes mellitus Hypertension Hyperlipidemia Grandfather Cancer Grandmother Cancer Social History household members: family Smoking Status: Never smoker second hand exposure: No alcohol intake: never substance use type: does not use additional social history: No current social issues Family History Father Hyperlipidemia Mother Diabetes mellitus Hypertension Hyperlipidemia Grandfather Cancer Grandmother Cancer Social History household members: family Smoking Status: Never smoker second hand exposure: No alcohol intake: never substance use type: does not use additional social history: No current social issues Exam Narrative Exam Narrative: GENERAL: Alert and oriented x three, Obese male in mild distress. HEENT: Head normocephalic, atraumatic, EOMI, pupils reactive, face symmetric, moist mucous membranes NECK: Supple, full range of motion CARDIOVASCULAR: Regular rate and rhythm without murmurs, rubs or gallops. RESPIRATORY: Breath sounds equal bilaterally, no wheezes rales or rhonchi. ABDOMEN: Soft, Positive for left lower quadrant tenderness just above the pelvis and iliac crest patient has several small areas of bruising consistent with insulin injection sites in which patient states that with these are from. There is no erythema, there is no swelling, fluctuance or signs of cellulitis or abscess. Normoactive bowel sounds all 4 quadrants. No guarding or rebound, rigidity, no mass : No CVA tenderness EXTREMITIES: Normal range of motion, no clubbing or edema. Neurovascularly intact NEUROLOGICAL: Cranial nerves II through XII grossly intact. Moving all extremities SKIN: Warm, dry, no petechiae, no rashes or lesions. Initial Vital Signs Initial Vital Signs: Vital Signs Temperature 98.9 F 09/19/18 07:35 Pulse Rate 64 09/19/18 07:35 Respiratory Rate 20 09/19/18 07:35 Blood Pressure 138/112 H 09/19/18 07:35 Pulse Oximetry 97 09/19/18 07:35 Course Orders Ordered: ED Orders 09/19/18 14:53 Education, smoking cessation ONGOING 09/20/18 05:00 Complete Blood Count AUTO DIFF Routine Comprehensive Metabolic Panel Routine 09/20/18 15:00 Lipase DAILY Bisacodyl (Dulcolax) 10 mg ME DAILY PRN PRN Reason: Constipation Enoxaparin Sodium (Lovenox) 40 mg SUBCUT BID PATO Hydralazine HCl (Apresoline) 10 mg IV Q6HR PRN PRN Reason: Hypertension Hydromorphone HCl (Dilaudid) 1 mg IV Q4HRWA PRN PRN Reason: Pain, Moderate (4-6) Last Admin: 09/19/18 17:44 Dose: 1 mg Potassium Chloride/Sodium Chloride (Ns With Kcl 20 Meq) 1,000 mls @ 150 mls/hr IV CONT PATO Last Admin: 09/19/18 15:54 Dose: 150 mls/hr Potassium Chloride 20 meq/ (Dextrose/Sodium Chloride) 1,010 mls @ 150 mls/hr IV CONT PATO Insulin Glargine (Lantus Solostar (Pen)) 20 unit SUBCUT BEDTIME PATO Naloxone HCl (Narcan) 0.2 mg IV Q2MIN PRN PRN Reason: Opiate Reversal Ondansetron HCl (Zofran) 4 mg IV Q8HR PRN PRN Reason: Nausea And Vomiting Prazosin HCl (Minipress) 10 mg PO BEDTIME PATO Discontinued Medications Dextrose (D50w) 12.5 gm IV NOW ONE Stop: 09/19/18 17:30 Last Admin: 09/19/18 17:44 Dose: 12.5 gm Dextrose (D50w) 12.5 gm IV NOW ONE Stop: 09/19/18 18:37 Last Admin: 09/19/18 18:40 Dose: 12.5 gm Enoxaparin Sodium (Lovenox) 40 mg SUBCUT DAILY PATO Last Admin: 09/19/18 16:02 Dose: Not Given Sodium Chloride (Normal Saline 0.9%) 1,000 mls @ 1,000 mls/hr IV BOLUS ONE Stop: 09/19/18 09:17 Last Infusion: 09/19/18 09:51 Dose: 0 mls/hr Admin: 09/19/18 08:45 Dose: 1,000 mls/hr Insulin Aspart (Novolog) 1 unit SUBCUT NOW ONE; Protocol Stop: 09/19/18 14:54 Last Admin: 09/19/18 16:02 Dose: Not Given Ketorolac Tromethamine (Toradol) 15 mg IV NOW ONE Stop: 09/19/18 08:20 Last Admin: 09/19/18 08:45 Dose: 15 mg Morphine Sulfate (Morphine) 4 mg IV NOW ONE Stop: 09/19/18 12:38 Last Admin: 09/19/18 12:43 Dose: 4 mg Vital Signs - 8 hr 09/19/18 12:42 09/19/18 12:43 09/19/18 13:35 Temperature 97.4 F L Pulse Rate 59 L 63 55 L Respiratory Rate 15 18 16 Blood Pressure 127/73 Blood Pressure [Right Arm] 144/75 H 144/75 H Pulse Oximetry 98 98 98 09/19/18 15:50 09/19/18 16:19 Temperature 97.3 F L Pulse Rate 63 Respiratory Rate 18 Blood Pressure 138/85 Blood Pressure [Right Arm] Pulse Oximetry 98 98 MDM - Abdominal Pain Differential Diagnosis Differential diagnosis: Likely abdominal pain, calculus of kidney, constipation, diverticulitis, small bowel obstruction ( unlikely) and other ( cellulitis) Lab Data Attestation: I reviewed the patient's lab results. Result diagrams: 09/19/18 08:30 09/19/18 08:30 Lab Results 09/19/18 09/19/18 Range/Units 08:30 08:30 WBC 7.4 (4.5-11.0) X10^3/uL RBC 4.47 L (4.5-5.9) X10^6/uL Hgb 13.9 (13.5-17.5) g/dL Hct 40.3 L (41-53) % MCV 90.3 (80-100) fL MCH 31.2 (26-34) PG MCHC 34.6 (30-36) % RDW 14.4 (11.6-14.8) % Plt Count 177 (150-400) X10^3/uL Neut % (Auto) 54.4 (50-75) % Lymph % (Auto) 37.4 (25-40) % [place] % (Auto) 6.9 (3-14) % Eos % (Auto) 0.4 L (2-4) % Baso % (Auto) 0.9 (0-2) % Neut # (Auto) 4000 (2906-7155) /uL Lymph # (Auto) 2700 (9208-9314) /uL [place] # (Auto) 500 (0-900) /uL Eos # (Auto) 0 (0-450) /uL Baso # (Auto) 100 (0-100) /uL Sodium 137 (137-145) mmol/L Potassium 4.1 (3.4-5.1) mmol/L Chloride 100 (98-107) mmol/L Carbon Dioxide 25 (22-32) mmol/L BUN 14 (9-20) mg/dL Creatinine 0.70 (0.66-1.25) mg/dL Estimated GFR > 60.0 (>60) mL/min BUN/Creatinine Ratio 20.0 (6-22) Glucose 121 H (70-100) mg/dL Calcium 9.2 (8.4-10.2) mg/dL Total Bilirubin 0.4 (0.2-1.3) mg/dL AST 33 (17-59) IU/L ALT 63 (21-72) IU/L Alkaline Phosphatase 73 (38-126) U/L Total Protein 8.0 (6.3-8.2) g/dL Albumin 4.7 (3.5-5.0) g/dL Globulin 3.3 (1.7-4.1) g/dL Albumin/Globulin Ratio 1.4 (1.0-2.8) Lipase 2329 H (23-300) U/L Point of care testing: Point of Care Testing Glucose POC 71 Urine Dip Bedside Urine Glucose Negative Bedside Urine Bilirubin - Negative Bedside Urine Ketone - Negative Urine Specific [place] 1.010 Bedside Urine Occult Blood - Negative Bedside Urine pH 6.0 Bedside Urine Protein - Negative Bedside Urine Urobilinogen - Negative Bedside Urine Nitrite - Negative Bedside Urine Leukocytes - Negative Esterase Imaging Data CT scan - abdomen: Radiologist's impression: 8 Savanna Drake DO Find Patient Imaging Gustavo Mack 37 M 1980 ACTIVITY DATE EXAM STATUS AUTHOR 09/19/18 08:57 [place] [address] CT Scan Report Signed Patient: Gustavo Mack [facility]#: [id number] : 1980Acct:[id number] Age/Sex: 37 / MDate of Service: 09/19/18 Loc: ED Accession Number: [id number] Procedure: CT abdomen pelvis w con Ordering Provider: Savanna Drake D.O. PROCEDURE: CT ABDOMEN PELVIS W CON INDICATIONS: left lower quad pain, hx diabetes, htn TECHNIQUE: After the administration of intravenous contrast, 5 mm thick sections acquired from the diaphragm to the symphysis. 5 mm coronal and sagittal reformats were acquired. For radiation dose reduction, the following was used: automated exposure control, adjustment of mA and/or kV according to patient size. COMPARISON: [facility], CT, CT ABD PELVIS W CON, 06/13/2016, 13:38. FINDINGS: Image quality: Excellent. ABDOMEN: Lung bases: Lung bases are clear. Heart size is normal. Solid organs: Liver is normal in size and enhancement. Diffuse fatty infiltration of the liver. Liver is slightly nodular margins concerning for hepatic cirrhosis. Gallbladder is contracted, but within normal limits.. Biliary system is non dilated. Pancreas enhances normally. Spleen is normal in size and enhancement. No adrenal nodules. Kid neys demonstrate normal size and enhancement, without hydronephrosis. Peritoneum and bowel: Bowel loops demonstrate normal wall thickness and caliber. A few scattered diverticuli noted in the sigmoid colon without evidence of diverticulitis. No free fluid or air. The appendix is normal. Nodes and vessels: No retroperitoneal or mesenteric adenopathy by size criteria. Aorta and inferior vena cava are normal in size. Miscellaneous: No ventral hernias. PELVIS: Genitourinary: Bladder wall thickness is normal. Miscellaneous: No inguinal adenopathy. Small left fat containing inguinal hernia. Bones: No suspicious bony lesions. No vertebral body compression fractures. Lower lumbar spine degenerative disc disease and facet arthropathy. IMPRESSION: 1. No acute disease process. 2. No free fluid or free air. 3. No dilated loops of bowel. 4. The appendix is normal. 5. Few scattered sigmoid colon diverticula without evidence of diverticulitis. 6. Small fat-containing left inguinal hernia. 7. Hepatic steatosis. Liver has slightly nodular margins concerning for hepatic cirrhosis. Recommend correlation with laboratory data. Dictated by: Mahi Ham MD, PhD on 09/19/2018 at 9:35 Approved by: Mahi Ham MD, PhD on 09/19/2018 at 9:41 [facility] Narrative Medical decision making narrative: discussed with patient based on his area of discomfort I would suspect most likely a diverticulitis or possibly a constipation with his recent hard stool. There is no skin changes to make me suspicious for a cellulitis or abscess, hematoma. Patient could have a kidney stone with a little bit of radiation into flank. the patient's lipase is e levated in the [address] does not show any changes consistent pancreatitis nor does it show any concerning changes such as diverticulitis, small-bowel obstruction. He does have some hepatic steatosis. The patient's LFTs, alk-phos and bilirubin are all normal making a potential for choledocholithiasis low. Patient does have some triglyceridemia from a prior lab on 08/29. On further discussion patient states he only has 1 or 2 beers occasionally on a monthly basis. But he does specifically request that I do not speak with his family about this. I relate his request as well as our discussion to Dr. Escobeod. She accepts. Discharge Plan Departure Patient Disposition: Admitted as Observation Clinical Impression: Acute pancreatitis Discharge Date/Time: 09/19/18 12:30 Interventions: ED Discharge Assessment Last Done: 09/19/18 12:30 Referrals: Mary Grace Cruz PA-C [Primary Care Provider] - Admit Date/Time: 09/19/18 10:40 Admit Provider: Marion Escobedo
[2018-09-19 08:37] LABS: Add Manual Diff / Slide Review NO; Basophils Absolute Auto 100 /uL (0-100); Basophils Percent Auto 0.9 % (0-2); Eosinophils Absolute Auto 0 /uL (0-450); Eosinophils Percent Auto 0.4 % (2-4); Hematocrit 40.3 % (41-53); Hemoglobin 13.9 g/dL (13.5-17.5); Lymphocytes Absolute Auto 2700 /uL (1100-4500); Lymphocytes Percent Auto 37.4 % (25-40); Mean Corpuscular HGB Conc 34.6 % (30-36); Mean Corpuscular Hemoglobin 31.2 PG (26-34); Mean Corpuscular Volume 90.3 fL (80-100); Monocytes Absolute Auto 500 /uL (0-900); Monocytes Percent Auto 6.9 % (3-14); Neutrophils Absolute Auto 4000 /uL (1500-7000); Neutrophils Percent Auto 54.4 % (50-75); Platelet Count 177 X10^3/uL (150-400); Red Blood Cell Count 4.47 X10^6/uL (4.5-5.9); Red Cell Distribution Width 14.4 % (11.6-14.8); White Blood Cell Count 7.4 X10^3/uL (4.5-11.0)
[2018-09-19] MEDS: SODIUM CHLORIDE 0.9% 1,000 ML 1000 ML IV (08:45)
[2018-09-19] MEDS: KETOROLAC 60 MG/2 ML VIAL 15 MG IV (08:45)
[2018-09-19 08:50] LABS: Alanine Aminotransferase 63 IU/L (21-72); Albumin 4.7 g/dL (3.5-5.0); Albumin Globulin Ratio 1.4 (1.0-2.8); Alkaline Phosphatase 73 U/L (38-126); Aspartate Aminotransferase 33 IU/L (17-59); Bilirubin Total 0.4 mg/dL (0.2-1.3); Blood Urea Nitrogen 14 mg/dL (9-20); Calcium 9.2 mg/dL (8.4-10.2); Carbon Dioxide 25 mmol/L (22-32); Chloride 100 mmol/L (98-107); Estimated Glomerular Filt Rate > 60.0 mL/min (>60); Globulin 3.3 g/dL (1.7-4.1); Glucose 121 mg/dL (70-100); HEMOLYSIS < 15 (0-50); Potassium 4.1 mmol/L (3.4-5.1); Sodium 137 mmol/L (137-145)
--- NOTE | 2018-09-19 08:57 | DI.CT.S_ITS ---
PROCEDURE: CT ABDOMEN PELVIS W CON INDICATIONS: left lower quad pain, hx diabetes, htn TECHNIQUE: After the administration of intravenous contrast, 5 mm thick sections acquired from the diaphragm to the symphysis. 5 mm coronal and sagittal reformats were acquired. For radiation dose reduction, the following was used: automated exposure control, adjustment of mA and/or kV according to patient size. COMPARISON: [facility], CT, CT ABD PELVIS W CON, 06/13/2016, 13:38. FINDINGS: Image quality: Excellent. ABDOMEN: Lung bases: Lung bases are clear. Heart size is normal. Solid organs: Liver is normal in size and enhancement. Diffuse fatty infiltration of the liver. Liver is slightly nodular margins concerning for hepatic cirrhosis. Gallbladder is contracted, but within normal limits.. Biliary system is non dilated. Pancreas enhances normally. Spleen is normal in size and enhancement. No adrenal nodules. Kidneys demonstrate normal size and enhancement, without hydronephrosis. Peritoneum and bowel: Bowel loops demonstrate normal wall thickness and caliber. A few scattered diverticuli noted in the sigmoid colon without evidence of diverticulitis. No free fluid or air. The appendix is normal. Nodes and vessels: No retroperitoneal or mesenteric adenopathy by size criteria. Aorta and inferior vena cava are normal in size. Miscellaneous: No ventral hernias. PELVIS: Genitourinary: Bladder wall thickness is normal. Miscellaneous: No inguinal adenopathy. Small left fat containing inguinal hernia. Bones: No suspicious bony lesions. No vertebral body compression fractures. Lower lumbar spine degenerative disc disease and facet arthropathy. IMPRESSION: 1. No acute disease process. 2. No free fluid or free air. 3. No dilated loops of bowel. 4. The appendix is normal. 5. Few scattered sigmoid colon diverticula without evidence of diverticulitis. 6. Small fat-containing left inguinal hernia. 7. Hepatic steatosis. Liver has slightly nodular margins concerning for hepatic cirrhosis. Recommend correlation with laboratory data. Dictated by: Mahi Ham MD, PhD on 09/19/2018 at 9:35 Approved by: Mahi Ham MD, PhD on 09/19/2018 at 9:41
[2018-09-19 08:59] LABS: Lipase 2329 U/L (23-300)
[2018-09-19] MEDS: MORPHINE 4 MG/ML INJ IV (12:43)
--- NOTE | 2018-09-19 12:52 | PC.NURSE ---
1130 Late entry-Pt requesting for blood sugar check and pain medication for recurring LLQ pain. FGBG was 74mg/dL and informed DR Drake and obtained clear liquid order and provided apple and grape juice.
--- NOTE | 2018-09-19 15:08 | P.HP_ITS ---
History of Present Illness Date Patient Seen: 09/19/18 Chief complaint: L SIDE LOWER ABDOMINAL PAIN Narrative: Patient is a 37 y/o male with a history of hypertension, type 2 Diabetes, Morbid obesity, bipolar affective disorder, and anxieity who was well until 36 hours prior to admission. Patient developed abrupt onset left lower quadrant pain. He had associated nausea, them epigastric pain, heavy breathing, and generalized malaise. The patient reports pain then localized to epigastric area. He denies shortness of breath, cough, chest pain, runny nose, or recent illness. He rarely drinks, does not have a history of gallstones, or prior abdominal injury. His lipase was elevated at 2323. He underwent CT scan of the abdomen which revealed no evidence of necrotizing pancreatitis or stones. He is admitted to the hospital for further evaluation. CT findings: o acute disease process. 2. No free fluid or free air. 3. No dilated loops of bowel. 4. The appendix is normal. 5. Few scattered sigmoid colon diverticula without evidence of diverticulitis. 6. Small fat-containing left inguinal hernia. 7. Hepatic steatosis. Liver has slightly nodular margins concerning for hepatic cirrhosis. Recommend correlation with laboratory data. Patient History Medical History Colitis (Acute) Anxiety (Chronic) Bipolar disorder (Chronic) Chronic back pain (Chronic) Depression (Chronic) Diabetes (Chronic) Erectile dysfunction (Chronic) Hyperlipemia (Chronic) Hypertension (Chronic) Low testosterone (Chronic) PTSD (post-traumatic stress disorder) (Chronic) Schizophrenia (Chronic) Surgical History Hx of discectomy (Resolved 2009) Hx of surgical procedure (Resolved 2005) Family History Father Hyperlipidemia Mother Diabetes mellitus Hypertension Hyperlipidemia Grandfather Cancer Grandmother Cancer Social History household members: family Smoking Status: Never smoker second hand exposure: No alcohol intake: never substance use type: does not use additional social history: No current social issues Family & Social History Family History Father Hyperlipidemia Mother Diabetes mellitus Hypertension Hyperlipidemia Grandfather Cancer Grandmother Cancer Social History: household members family Prior Living Arrangements House Safety & Behavioral: Feels Safe in Current Yes Environment Been Physically Hurt or No Threatened By a Person Suicidal Ideation Description None Tobacco & Substance use: Smoking Status Never smoker alcohol intake never alcohol intake frequency 0-2 drinks per day Substance Use Type does not use Meds Home Medications Medication Instructions Recorded Confirmed Type losartan [Cozaar] 50 mg PO BID #180 tab 10/25/17 09/19/18 Rx propranolol 40 mg tablet 40 mg PO TID #270 tab 02/01/18 09/19/18 Rx ziprasidone 60 mg capsule 60 mg PO BID #180 cap 02/01/18 09/19/18 Rx insulin regular human U-500 See Rx Instructions SUBCUT ONCE #6 02/02/18 09/19/18 Rx concentrate 500 unit/mL(3 mL) ml subcut pen One Touch Test Strips #1 ea 04/26/18 09/19/18 History fluoxetine 40 mg capsule 80 mg PO DAILY 04/26/18 09/19/18 History Lancet: Device 1 ea MISCELLANEOUS DIRECTED 09/19/18 09/19/18 History [place] 1 ea MISCELLANEOUS DIRECTED 09/19/18 09/19/18 History [Glucometer ] 1 ea MISCELLANEOUS DIRECTED 09/19/18 09/19/18 History atorvastatin [Lipitor] 10 mg PO BEDTIME 09/19/18 09/19/18 History insulin glargine [Basaglar KwikPen 10 - 30 units SUBCUT TID-QID 09/19/18 09/19/18 History U-100 Insulin] prazosin [Minipress] 10 mg PO BEDTIME 09/19/18 09/19/18 History trazodone 200 mg PO BEDTIME 09/19/18 09/19/18 History Allergies Allergy/AdvReac Type Severity Reaction Status Date / Time No Known Drug Allergies Allergy Verified 09/19/18 07:35 Review of Systems Review of Systems All systems reviewed & are unremarkable except as noted in HPI and below Exam Vital Signs (past 8 hours): - 09/19/18 07:35 09/19/18 10:00 09/19/18 12:42 Temperature 98.9 F Pulse Rate 64 58 L 59 L Respiratory Rate 20 15 Blood Pressure 138/112 H Blood Pressure [Right Arm] 109/88 144/75 H Pulse Oximetry 97 98 98 09/19/18 12:43 09/19/18 13:35 Temperature 97.4 F L Pulse Rate 63 55 L Respiratory Rate 18 16 Blood Pressure 127/73 Blood Pressure [Right Arm] 144/75 H Pulse Oximetry 98 98 Oxygen Delivery Method Room Air Oxygen Flow Rate 0 Narrative Exam Narrative: Pleasant obese male uncomfortable HEENT: NC/ AT, EOMI, oropharynx clear, neck supple Lungs: clear to auscultation CV: RRR nl Sl S2 Abd: soft/ mild tenderness in the mid epigastric and left lower quadrant no re bound no boardlike rigidity EXT: NO edema Neuro: non focal Skin: no lesions Psych: patient is alert, awake, appropriate, speech is clear, no delusions on hallucinations Objective Labs Result Diagrams: 09/19/18 08:30 09/19/18 08:30 Labs: Laboratory Results - last 24 hr 09/19/18 09/19/18 08:30 08:30 WBC 7.4 RBC 4.47 L Hgb 13.9 Hct 40.3 L MCV 90.3 MCH 31.2 MCHC 34.6 RDW 14.4 Plt Count 177 Neut % (Auto) 54.4 Lymph % (Auto) 37.4 [place] % (Auto) 6.9 Eos % (Auto) 0.4 L Baso % (Auto) 0.9 Neut # (Auto) 4000 Lymph # (Auto) 2700 [place] # (Auto) 500 Eos # (Auto) 0 Baso # (Auto) 100 Sodium 137 Potassium 4.1 Chloride 100 Carbon Dioxide 25 BUN 14 Creatinine 0.70 Estimated GFR > 60.0 BUN/Creatinine Ratio 20.0 Glucose 121 H Calcium 9.2 Total Bilirubin 0.4 AST 33 ALT 63 Alkaline Phosphatase 73 Total Protein 8.0 Albumin 4.7 Globulin 3.3 Albumin/Globulin Ratio 1.4 Lipase 2329 H Assessment & Plan (1) Acute pancreatitis: Problem details: Acute pancreatitis, present on admission. Etiology unclear. CT Scan negative. Will check ultrasound to r/o biliary sludge, consider MRCP to evaluate biliary ducts if negative. Continue IV hydration, antiemetics, pain meds, npo status Recheck labs in am Qualifiers: Acute pancreatitis complication: Pancreatitis type: Current visit: Yes Status: Acute (2) Type II diabetes mellitus, well controlled: Problem details: Patient takes a sliding scale of Lantus. Will start with 20 units tonight. Add medium dose sliding scale and follow closely Current visit: No Status: Chronic (3) Morbid obesity with BMI of 50.0-59.9, adult: Current visit: No Status: Chronic (4) Hypertension: Problem details: will hold oral medications for now Will use prn hydralazine for blood pressure if needed. Current visit: Yes Status: Acute (5) Hyperlipidemia: Problem details: resume statin when taking po Current visit: Yes Status: Acute (6) Bipolar affective disorder: Problem details: will continue prazosin, resume other medications when taking po Current visit: Yes Status: Acute Quality VTE Deep Vein Thrombosis/Pulmonary Embolism Present on Admission: No
[2018-09-19] MEDS: KCL 20 MEQ IN NS 1,000 ML 150 MEQ IV (15:54)
[2018-09-19] MEDS: DEXTROSE 50 % IN WATER 25 GM/50 ML SYRINGE IV ×2 (17:44→18:40)
[2018-09-19] MEDS: HYDROMORPHONE 1 MG INJ IV ×2 (17:44→22:03)
--- NOTE | 2018-09-19 17:56 | PC.NURSE ---
Addendum entered by Manju Camacho R.N. 09/19/18 20:28: 191 BG 89 mg/dl 1934 BG 85 mg/dl 2004 BG 90 mg/dl Patient awake, alert, and calm. VSS. IVF with Dextrose infusing. Original Note: Addendum entered by Manju Camacho R.N. 09/19/18 18:59: At 1815 BG 78 mg/dl, no s/sx of hypoglycemia. 1830 71 mg/dl, notified Dr. Escobedo, administered Dextrose 50% 12.5 GM x 1 IV. BG increase to 98 mg/dl at 1855. New order obtained to changed IVF. WIll continue to monitor closely. Original Note: [place] shift note: Patient awake and alert, continue NPO with IVF infusing. Patient notified staff regarding not feeling well, states he feels like his blood sugar dropped. BG at 1725 71 mg/dl, DR. Escobedo made aware. Administered 12.5 G of Dextrose 50% IV. Repeat BG at 1745 103 mg/dl. Patient states feels much better. Post Dextrose administration no s/sx of hypoglycemia. VSS. Will continue to monitor BG closely.
[2018-09-19] MEDS: POTASSIUM CHLORIDE 20 MEQ in DEXTROSE 5%-0.9% NS 1,000 ML 150 MEQ IV (19:21)
[2018-09-19] MEDS: ONDANSETRON 4 MG/2 ML INJ IV (20:25)
[2018-09-19] MEDS: ENOXAPARIN 40 MG/0.4 ML SYRINGE SUBCUT (22:03)
[2018-09-20] VITALS (9 sets, daily range): BP systolic 124–140; BP diastolic 75–84; PULSE 60–94; RESP 16–24; TEMP 36.1–36.6; O2SAT 92–98
--- NOTE | 2018-09-20 | DI.MRI.S_ITS ---
PROCEDURE: MR ABDOMEN WO CON INDICATIONS: Acute pancreatitis TECHNIQUE: Coronal HASTE through the abdomen, axial 2-D FLASH in- and [id number], and breath-hold T2 FSE with fat saturation through the biliary system and pancreas. Oblique coronal and axial thin-slice HASTE, radial thick-slab HASTE centered on the extrahepatic bile ducts. Intravenous secretin: Not requested. COMPARISON: [facility], CT, CT ABDOMEN PELVIS W CON, 09/19/2018, 8:24. [facility], US, US ABDOMEN COMPLETE, 09/19/2018, 16:10. FINDINGS: Image quality: There is motion artifact limiting evaluation. Pancreas and biliary system: The gallbladder demonstrates no gallstones, wall thickening, or pericholecystic fluid. Intra- and extra-hepatic biliary ducts are non dilated. No definite filling defects to suggest choledocholithiasis. Pancreas is normal in morphology, without adjacent soft tissue edema or peripancreatic fluid. Pancreatic duct is normal in caliber, without definite evidence of pancreatic divisum. No Other solid organs: Liver is normal in size. Spleen is normal in size. No adrenal nodules. Both kidneys are normal in size, without hydronephrosis. Nodes and vessels: No retroperitoneal or mesenteric adenopathy by size criteria. Aorta and inferior vena cava are normal in size. Bowel and peritoneum: Visualized bowel loops are normal in caliber. No free fluid. Lung bases: No basal pleural effusions. Heart size is normal. Bones and soft tissues: No ventral hernias. Bone marrow is of normal overall signal. IMPRESSION: 1. No peripancreatic edema or fluid to suggest acute pancreatitis on MRI. 2. No evidence of cholelithiasis, choledocholithiasis, or biliary ductal dilatation. No pancreatic duct dilatation. Dictated by: Cali Gupta M.D. on 09/20/2018 at 10:58 Approved by: Cali Gupta M.D. on 09/20/2018 at 11:03
[2018-09-20] MEDS: ONDANSETRON 4 MG/2 ML INJ IV ×4 (00:11→13:09)
[2018-09-20] MEDS: DEXTROSE 50 % IN WATER 25 GM/50 ML SYRINGE IV (00:12)
[2018-09-20] MEDS: diphenhydrAMINE 50 MG/ML VIAL 12.5 MG IV (00:12)
[2018-09-20] MEDS: LORazepam 2 MG/ML SYRINGE 0.5 MG IV (00:13)
[2018-09-20] MEDS: HYDROMORPHONE 1 MG INJ IV ×6 (01:31→18:30)
[2018-09-20] MEDS: diphenhydrAMINE 50 MG/ML VIAL 25 MG IV ×2 (03:48→15:54)
--- NOTE | 2018-09-20 04:14 | PC.NURSE ---
Pt is A and O x 4, VSS. Pt becomes anxious when blood glucose is below 100, lowest this shift = 74. Pt states below 100 he becomes dizzy. Patient states he does not drink alcohol. Good pain relief with 5 mg po oxycodone, adequate relief for itching with 25 mg IVP diphenhydramine.
[2018-09-20 06:51] LABS: Add Manual Diff / Slide Review NO; Basophils Absolute Auto 0 /uL (0-100); Basophils Percent Auto 0.4 % (0-2); Eosinophils Absolute Auto 0 /uL (0-450); Eosinophils Percent Auto 0.7 % (2-4); Hematocrit 40.2 % (41-53); Hemoglobin 13.5 g/dL (13.5-17.5); Lymphocytes Absolute Auto 2800 /uL (1100-4500); Lymphocytes Percent Auto 43.8 % (25-40); Mean Corpuscular HGB Conc 33.5 % (30-36); Mean Corpuscular Hemoglobin 30.9 PG (26-34); Mean Corpuscular Volume 92.3 fL (80-100); Monocytes Absolute Auto 600 /uL (0-900); Monocytes Percent Auto 8.9 % (3-14); Neutrophils Absolute Auto 3000 /uL (1500-7000); Neutrophils Percent Auto 46.2 % (50-75); Platelet Count 159 X10^3/uL (150-400); Red Blood Cell Count 4.35 X10^6/uL (4.5-5.9); Red Cell Distribution Width 14.3 % (11.6-14.8); White Blood Cell Count 6.5 X10^3/uL (4.5-11.0)
[2018-09-20 07:01] LABS: Alanine Aminotransferase 62 IU/L (21-72); Albumin 4.1 g/dL (3.5-5.0); Albumin Globulin Ratio 1.3 (1.0-2.8); Alkaline Phosphatase 53 U/L (38-126); Aspartate Aminotransferase 31 IU/L (17-59); BUN Creatinine Ratio 11.3 (6-22); Bilirubin Total 0.7 mg/dL (0.2-1.3); Blood Urea Nitrogen 9 mg/dL (9-20); Calcium 8.5 mg/dL (8.4-10.2); Carbon Dioxide 29 mmol/L (22-32); Chloride 101 mmol/L (98-107); Estimated Glomerular Filt Rate > 60.0 mL/min (>60); Globulin 3.1 g/dL (1.7-4.1); Glucose 97 mg/dL (70-100); HEMOLYSIS < 15 (0-50); Sodium 138 mmol/L (137-145); Total Protein 7.2 g/dL (6.3-8.2)
--- NOTE | 2018-09-20 07:35 | PM.PN.1 ---
Subjective Date Patient Seen: 09/20/18 Interval history: Gustavo Mack is a 37-year-old male with a past medical history significant for morbid obesity, hypertension, hyperlipidemia, diabetes mellitus type II, insulin using, and depression, PTSD, bipolar affective disorder who presented for abrupt onset left lower quadrant then epigastric abdominal pain with nausea and admitted for acute pancreatitis. The patient is resting in bed comfortably and in no acute distress. He endorses abdominal pain +5/10 and nausea controlled with dilaudid and zofran respectively. He also reports hard firm stool yesterday. He denies headache, shortness of breath, chest pain, vomiting, fever, chills, dysuria, or diarrhea. He is voiding without difficulty. He is resting in bed. Exam Vital Signs (past 8 hours): - 09/20/18 01:34 09/20/18 03:05 Temperature 97.8 F Pulse Rate 63 Respiratory Rate 20 Blood Pressure 125/80 Pulse Oximetry 97 97 Oxygen Delivery Method Room Air Oxygen Flow Rate 0 Narrative Exam Narrative: General: Middle aged gentlman lying in bed and in no acute distress, well-developed, well-nourished, appropriately interactive. HEENT: Normocephalic, atraumatic. External ears without defect. Pupils equal, round, and reactive to light . Anicteric sclerae, moist conjunctivae, and no lid lag. Neck: Supple with full range of motion. No lymphadenopathy or thyromegaly. Cardiovascular: Regular rate and rhythm without murmurs, rubs, or gallops appreciated. Pulmonary: Clear to auscultation bilaterally without crackles, wheezes, or rhonchi. Normal respiratory effort with no use of accessory muscles. Abdomen: Soft, obeses, mild diffuse tenderness to palpation, nondistended. No hepatosplenomegaly or masses appreciated. Extremities: No clubbing, cyanosis, or edema. Skin: Normal temperature, turgor, and texture; no rash, ulcers, or subcutaneous nodules appreciated. Neurological: Cranial nerves grossly intact. Psychiatric:Anxious. Alert and oriented to person, place, and time. Objective Labs Result Diagrams: 09/20/18 06:24 09/20/18 06:24 Labs: Laboratory Results - last 24 hr 09/19/18 09/19/18 09/20/18 08:30 08:30 06:24 WBC 7.4 6.5 RBC 4.47 L 4.35 L Hgb 13.9 13.5 Hct 40.3 L 40.2 L MCV 90.3 92.3 MCH 31.2 30.9 MCHC 34.6 33.5 RDW 14.4 14.3 Plt Count 177 159 Neut % (Auto) 54.4 46.2 L Lymph % (Auto) 37.4 43.8 H [place] % (Auto) 6.9 8.9 Eos % (Auto) 0.4 L 0.7 L Baso % (Auto) 0.9 0.4 Neut # (Auto) 4000 3000 Lymph # (Auto) 2700 2800 [place] # (Auto) 500 600 Eos # (Auto) 0 0 Baso # (Auto) 100 0 Sodium 137 Potassium 4.1 Chloride 100 Carbon Dioxide 25 BUN 14 Creatinine 0.70 Estimated GFR > 60.0 BUN/Creatinine Ratio 20.0 Glucose 121 H Calcium 9.2 Total Bilirubin 0.4 AST 33 ALT 63 Alkaline Phosphatase 73 Total Protein 8.0 Albumin 4.7 Globulin 3.3 Albumin/Globulin Ratio 1.4 Lipase 2329 H 09/20/18 06:24 WBC RBC Hgb Hct MCV MCH MCHC RDW Plt Count Neut % (Auto) Lymph % (Auto) [place] % (Auto) Eos % (Auto) Baso % (Auto) Neut # (Auto) Lymph # (Auto) [place] # (Auto) Eos # (Auto) Baso # (Auto) Sodium 138 Potassium 4.0 Chloride 101 Carbon Dioxide 29 BUN 9 Creatinine 0.80 Estimated GFR > 60.0 BUN/Creatinine Ratio 11.3 Glucose 97 Calcium 8.5 Total Bilirubin 0.7 AST 31 ALT 62 Alkaline Phosphatase 53 Total Protein 7.2 Albumin 4.1 Globulin 3.1 Albumin/Globulin Ratio 1.3 Lipase Assessment & Plan Assessment & Plan narrative: Gustavo Mack is a 37-year-old male with a past medical history significant for morbid obesity, hypertension, hyperlipidemia, diabetes mellitus type II, insulin using, and depression, PTSD, bipolar affective disorder who presented for abrupt onset left lower quadrant then epigastric abdominal pain with nausea and admitted for acute pancreatitis. 1. Acute pancreatitis, present on admission. Active. -Etiology unclear. Patient drinks alcohol rarely. No history of gallstones. Triglycerides only mildly elevated at 252 on 08/28. -CT abdomen and pelvis negative. Abdominal ultrasound demonstrated likely biliary sludge but limited due to body habitus. Ordered MRCP to evaluate biliary ducts for possible stone. -Initial lipase 2329. Continue to trend. -Continue IV fluid hydration, antiemetics, pain meds, and will slowly advance with clear liquids. 2. Diabetes mellitus type II, chronic, present on admission. Stable. -Hemoglobin A1C 5.4% 08/28. -Patient on Lantus based on correctional scale which has been held. -Ordered medium dose correctional scale. -Continue blood glucose check every 6 hours while NPO and will follow closely. 3. Hypertension, chronic, present on admission. Stable. -Held oral medications while NPO for bowel rest. -Use IV labetalol as needed for hypertension. 4. Hyperlipidemia, chronic, present on admission. Stable. -Held oral medications while NPO for bowel rest. 5. Bipolar affective disorder, PTSD, and depression, chronic, present on admission. Presumed stable. -Continue prazosin and resume other medications when taking PO. 6. Morbid obesity, chronic, present on admission. Stable. -BMI 50 on admission. -Counseled on lifestyle modification including diet and exercise. Disposition: Patient likely to discharge home in several days depending upon improvement in acute pancreatitis and advancement of diet. Quality VTE Deep Vein Thrombosis/Pulmonary Embolism Present on Admission: No
[2018-09-20] MEDS: ENOXAPARIN 40 MG/0.4 ML SYRINGE SUBCUT (08:15)
[2018-09-20] MEDS: POTASSIUM CHLORIDE 20 MEQ in DEXTROSE 5%-0.9% NS 1,000 ML 150 MEQ IV (09:01)
[2018-09-20 10:08] LABS: Lipase 52 U/L (23-300)
[2018-09-20] MEDS: LORazepam 2 MG/ML SYRINGE IV (10:20)
--- NOTE | 2018-09-20 10:27 | CM.IDA ---
Discharge Planning/Care Management CM Discharge Assessment Start: 09/20/18 10:04 Luis Albertoq: Status: Active Protocol: Document 09/20/18 10:04 [place] (Rec: 09/20/18 10:26 [place] [id number]) Discharge Planning Assessment Assigned Production Finisher DUSTY Campos DPOA/Assigned Designee Name FatherClaude Contact Information [phone] Advance Directives? No History Provided By Patient Medical Record Prior Living Arrangements House Household Members family Type of transporation used prior to Drives own vehicle admit Independent with ADL's Yes Is patient alert and oriented? Yes Comment Bipolar affective disorder, anxiety, home med: prazosin Barriers to Discharge No Comment Pt admitted w/acute pancreatitis, NPO status, Type II Diabetes, Morbid Obesity. Payer: [facility]. Reviewed chart, pt discussed in multidisciplinary rounds. Medical management for acute pancreatitis, possibly advance diet today. Pt A+O, denies alcohol use. P: DC likely home upon medical clearance. Following closely in case DC needs or concerns arise. DUSTY Laureano Discharge Plan Home Transportation Arrangement Family Referrals Initiated None needed Additional Comment None needed at this time. Pending medical POC and needs. Review Status In Process
--- NOTE | 2018-09-20 10:59 | PC.NURSE ---
Day shift: Pt off unit at approx 1030 for MRI.
--- NOTE | 2018-09-20 11:24 | PC.NURSE ---
Day shift: BAck on unit at approx 1115. Pt stated that he tolerated the MRI.
[2018-09-20] MEDS: DEXTROSE 5%-NS W/KCL 20MEQ 1,000 ML 75 MEQ IV (13:02)
[2018-09-20 13:53] LABS: Bacteria Urine None Seen
[2018-09-20 13:57] LABS: Appearance Urine UA CLEAR; Bilirubin Urine UA NEGATIVE (NEGATIVE); Color Urine UA YELLOW; Glucose Urine UA NEGATIVE (Negative); Ketones Urine UA NEGATIVE (NEGATIVE); Leukocyte Esterase Urine UA NEGATIVE (NEGATIVE); Nitrite Urine UA NEGATIVE (Negative); Occult Blood Urine UA TRACE-INTACT (Negative); Protein Urine UA NEGATIVE (Negative); Specific Gravity Urine UA 1.025 (1.000-1.035); Urobilinogen Urine UA 0.2 E.U./dL (0.2); pH Urine UA 5.5 (4.5-8.0)
[2018-09-20 14:51] LABS: Culture Indicated Urine Cult Not Indicated; RBC Urine 0-1/HPF (0-5/HPF); Squamous Epithelial Cell Urine 0-1 /HPF; WBC Urine 0-1/HPF (0-5/HPF)
[2018-09-20] MEDS: ONDANSETRON 4 MG ODT SL ×2 (16:58→22:14)
[2018-09-20] MEDS: PRAZOSIN HCL 5 MG CAPSULE 10 MG PO (21:38)
[2018-09-20] MEDS: HYDROCODONE/ACET 5/325 TABLET 1 TAB PO (22:14)
[2018-09-21] VITALS: O2SAT 96
[2018-09-21] MEDS: diphenhydrAMINE 50 MG/ML VIAL 25 MG IV (00:08)
[2018-09-21] MEDS: HYDROCODONE/ACET 5/325 TABLET 1 TAB PO (02:24)
[2018-09-21] MEDS: ONDANSETRON 4 MG ODT SL (02:26)
[2018-09-21 04:30] VITALS: BP 122/73; PULSE 63; RESP 20; TEMP 36.5; O2SAT 92
[2018-09-21 06:13] LABS: Add Manual Diff / Slide Review NO; Basophils Absolute Auto 0 /uL (0-100); Basophils Percent Auto 0.8 % (0-2); Eosinophils Absolute Auto 100 /uL (0-450); Hematocrit 38.1 % (41-53); Hemoglobin 13.2 g/dL (13.5-17.5); Lymphocytes Absolute Auto 2400 /uL (1100-4500); Lymphocytes Percent Auto 41.7 % (25-40); Mean Corpuscular HGB Conc 34.6 % (30-36); Mean Corpuscular Hemoglobin 31.3 PG (26-34); Mean Corpuscular Volume 90.7 fL (80-100); Monocytes Absolute Auto 500 /uL (0-900); Monocytes Percent Auto 8.3 % (3-14); Neutrophils Absolute Auto 2800 /uL (1500-7000); Neutrophils Percent Auto 48.2 % (50-75); Platelet Count 146 X10^3/uL (150-400); Red Cell Distribution Width 14.1 % (11.6-14.8); White Blood Cell Count 5.8 X10^3/uL (4.5-11.0)
[2018-09-21 06:23] LABS: BUN Creatinine Ratio 7.5 (6-22); Blood Urea Nitrogen 6 mg/dL (9-20); Calcium 8.9 mg/dL (8.4-10.2); Carbon Dioxide 32 mmol/L (22-32); Chloride 98 mmol/L (98-107); Estimated Glomerular Filt Rate > 60.0 mL/min (>60); Glucose 93 mg/dL (70-100); HEMOLYSIS < 15 (0-50); Lipase 45 U/L (23-300); Magnesium 2.1 mg/dL (1.6-2.3); Potassium 4.1 mmol/L (3.4-5.1); Sodium 138 mmol/L (137-145)
--- NOTE | 2018-09-21 06:44 | PC.NURSE ---
New IV to right AC. 2 staff RNs attempted 1 stick each. Very tough skin, very deep veins. CCu RN able to place the AC IV at 0610. Patient gets up independently.
[2018-09-21 08:15] VITALS: BP 143/75; PULSE 76; RESP 18; TEMP 36.9; O2SAT 97
[2018-09-21 08:20] VITALS: O2SAT 97
--- NOTE | 2018-09-21 09:12 | PM.DS.1 ---
History of Present Illness Date Patient Seen: 09/19/18 Chief complaint: L SIDE LOWER ABDOMINAL PAIN Narrative: Written by Dr. Escobedo: Patient is a 37 y/o male with a history of hypertension, type 2 Diabetes, Morbid obesity, bipolar affective disorder, and anxieity who was well until 36 hours prior to admission. Patient developed abrupt onset left lower quadrant pain. He had associated nausea, them epigastric pain, heavy breathing, and generalized malaise. The patient reports pain then localized to epigastric area. He denies shortness of breath, cough, chest pain, runny nose, or recent illness. He rarely drinks, does not have a history of gallstones, or prior abdominal injury. His lipase was elevated at 2323. He underwent CT scan of the abdomen which revealed no evidence of necrotizing pancreatitis or stones. He is admitted to the hospital for further evaluation. Discharge Providers Date of admission: 09/19/18 10:40 Discharge Date: 09/21/18 Primary care physician: Mary Grace Cruz PA-C Discharge provider: Domi Castro DO Summary Discharge Diagnosis: 1. Acute pancreatitis, present on admission. Resolved. 2. Diabetes mellitus type II, chronic, present on admission. Stable. 3. Hypertension, chronic, present on admission. Stable. 4. Hyperlipidemia, chronic, present on admission. Stable. 5. Bipolar affective disorder, PTSD, and depression, chronic, present on admission. Presumed stable. 6. Morbid obesity, chronic, present on admission. Stable. Hospital Course: Gustavo Mack is a 37-year-old male with a past medical history significant for morbid obesity, hypertension, hyperlipidemia, diabetes mellitus type II, insulin using, and depression, PTSD, bipolar affective disorder who presented for abrupt onset left lower quadrant then epigastric abdominal pain with nausea and admitted for acute pancreatitis. 1. Acute pancreatitis, present on admission. Resolved. -Etiology unclear. Patient drinks alcohol rarely. No history of gallstones or evidence thereof. Triglycerides only mildly elevated at 252 on 08/28. possibly secondary to passed gallstone versus anatomical abnormality such as pancreatic divisum versus medication induced (side effect of fluoxetine (high dose) and prazosin less than 1%). -CT abdomen and pelvis negative. Abdominal ultrasound demonstrated possible biliary sludge but limited due to body habitus. MRCP did not demonstrate any evidence of acute pancreatitis, cholelithiasis, choledocholithiasis, biliary ductal or pancreatic duct dilatation. -Initial lipase 2329 and trended to low normal 45 upon discharge. -Continued IV fluid hydration, antiemetics, pain meds, and slowly advanced diet to soft and bland diet as tolerated. 2. Diabetes mellitus type II, chronic, present on admission. Stable. -Hemoglobin A1C 5.4% 08/28. -Patient on Lantus based on correctional scale which was held initially due to low blood glucose. -Continued blood glucose check every 6 hours while NPO and ACHS once tolerating p.o. intake. Covered with medium dose correctional scale Q6 and ACHS respectively. 3. Hypertension, chronic, present on admission. Stable. -Held oral medications and restarted once tolerating p.o. intake. -Ordered IV labetalol as needed for hypertension. 4. Hyperlipidemia, chronic, present on admission. Stable. -Triglycerides elevated mildly at 252. -Held atorvastatin and restarted once tolerating p.o. intake. 5. Bipolar affective disorder, PTSD, and depression, chronic, present on admission. Presumed stable. -Continued home medications including: fluoxetine, prazosin, and ziprasidone once tolerating p.o. intake. 6. Morbid obesity, chronic, present on admission. Stable. -BMI 50 on admission. -Counseled on lifestyle modification including diet and exercise. He has recently lost approximately 25 lb. Status at Discharge Functional status at discharge: independent ambulation Overall status at discharge: patient is back to baseline Exam Vital Signs (past 8 hours): - 09/21/18 04:30 09/21/18 08:15 09/21/18 08:20 Temperature 97.7 F 98.5 F Pulse Rate 63 76 Respiratory Rate 20 18 Blood Pressure 122/73 143/75 H Pulse Oximetry 92 97 97 Oxygen Delivery Method Room Air Oxygen Flow Rate 0 Narrative Exam Narrative: General: Middle aged gentlman lying in bed and in no acute distress, well-developed, well-nourished, appropriately interactive. HEENT: Normocephalic, atraumatic. External ears without defect. Pupils equal, round, and reactive to light . Anicteric sclerae, moist conjunctivae, and no lid lag. Neck: Supple with full range of motion. No lymphadenopathy or thyromegaly. Cardiovascular: Regular rate and rhythm without murmurs, rubs, or gallops appreciated. Pulmonary: Clear to auscultation bilaterally without crackles, wheezes, or rhonchi. Normal respiratory effort with no use of accessory muscles. Abdomen: Soft, obese, very mild tenderness in LLQ, nondistended, bowel sounds present. No hepatosplenomegaly or masses appreciated. Extremities: No clubbing, cyanosis, or edema. Skin: Normal temperature, turgor, and texture; no rash, ulcers, or subcutaneous nodules appreciated. Neurological: Cranial nerves grossly intact. Psychiatric:Anxious. Alert and oriented to person, place, and time. Objective Labs Result Diagrams: 09/21/18 05:50 09/21/18 05:50 Labs: Laboratory Results - last 24 hr 09/20/18 09/20/18 09/21/18 06:54 12:35 05:50 WBC 5.8 RBC 4.20 L Hgb 13.2 L Hct 38.1 L MCV 90.7 MCH 31.3 MCHC 34.6 RDW 14.1 Plt Count 146 L Neut % (Auto) 48.2 L Lymph % (Auto) 41.7 H [place] % (Auto) 8.3 Eos % (Auto) 1.0 L Baso % (Auto) 0.8 Neut # (Auto) 2800 Lymph # (Auto) 2400 [place] # (Auto) 500 Eos # (Auto) 100 Baso # (Auto) 0 Sodium Potassium Chloride Carbon Dioxide BUN Creatinine Estimated GFR BUN/Creatinine Ratio Glucose Calcium Magnesium Lipase 52 D Urine Color Yellow Urine Appearance Clear Urine pH 5.5 Ur Specific [place] 1.025 Urine Protein Negative Urine Glucose (UA) Negative Urine Ketones Negative Urine Occult Blood Trace-intact Urine Nitrate Negative Urine Bilirubin Negative Urine Urobilinogen 0.2 Ur Leukocyte Esterase Negative Urine RBC 0-1/hpf Urine WBC 0-1/hpf Ur Squamous Epith Cells 0-1 /hpf Urine Bacteria None seen Ur Culture Indicated? Cult not indicated 09/21/18 05:50 WBC RBC Hgb Hct MCV MCH MCHC RDW Plt Count Neut % (Auto) Lymph % (Auto) [place] % (Auto) Eos % (Auto) Baso % (Auto) Neut # (Auto) Lymph # (Auto) [place] # (Auto) Eos # (Auto) Baso # (Auto) Sodium 138 Potassium 4.1 Chloride 98 Carbon Dioxide 32 BUN 6 L Creatinine 0.80 Estimated GFR > 60.0 BUN/Creatinine Ratio 7.5 Glucose 93 Calcium 8.9 Magnesium 2.1 Lipase 45 Urine Color Urine Appearance Urine pH Ur Specific [place] Urine Protein Urine Glucose (UA) Urine Ketones Urine Occult Blood Urine Nitrate Urine Bilirubin Urine Urobilinogen Ur Leukocyte Esterase Urine RBC Urine WBC Ur Squamous Epith Cells Urine Bacteria Ur Culture Indicated? Discharge Plan Discharge Plan Patient Disposition: Home Discharge comment: You are being discharged home. It is unclear what caused your episode of pancreatitis. CT, ultrasound, and MRI did not demonstrate gallstones or evidence of a passed gallstone but it is possible versus anatomic abnormality. Two of your medications are associated with pancreatitis, fluoxetine and prazosin, but very rarely less than 1% and is very unlikely the cause of your pancreatitis as you have been on these long-term. It is not alcohol induced as you do not/rarely consume alcohol. Discharge Med Rec/Prescriptions Prescriptions: Continued fluoxetine 40 mg Capsule 80 mg PO DAILY RF: 0 One Touch Test Strips Qty: 1 RF: 0 propranolol 40 mg tablet 40 mg PO TID Qty: 270 RF: 3 ziprasidone HCl [Geodon] 60 mg capsule 60 mg PO BID Qty: 180 RF: 3 losartan [Cozaar] 50 MG tablet 50 mg PO BID Qty: 180 RF: 3 insulin regular hum U-500 conc [Humulin R U-500 (Conc) Kwikpen] 500 unit/mL (3 mL) insulin pen See Rx Instructions SUBCUT ONCE Qty: 6 RF: 3 Basaglar KwikPen U-100 Insulin 100 unit/mL (3 mL) Insulin Pen 10 - 30 units subcut TID-QID RF: 0 prazosin [Minipress] 5 mg capsule 10 mg PO BEDTIME RF: 0 atorvastatin [Lipitor] 10 mg tablet 10 mg PO BEDTIME RF: 0 trazodone 100 mg tablet 200 mg PO BEDTIME RF: 0 Lancet: Device 1 ea miscellaneous DIRECTED RF: 0 [place] 1 ea miscellaneous DIRECTED RF: 0 [Glucometer ] 1 ea miscellaneous DIRECTED RF: 0 Follow up/Referrals: Mary Grace Cruz PA-C [Primary Care Provider] - 1 Week (*appt:09/27 @ 10:10 check in for appointment w/s.anand lanza [phone] ) Provider Discharge Instructions Diet: Diet as Tolerated, Carb-consistent/Diabetic and Low-fat Diet comment: Soft, bland, low-fat, low-carbohydrate. Activity: Activity as tolerated. Visit Report/Discharge Packet Instructions: Eating a Diet Low in Saturated Fat, Trans Fat, and Cholesterol, Acute Pancreatitis, Type 2 Diabetes, [place] Diet, DI for Pancreatitis Visit Report Forms: Stroke Signs & Symptoms Discharge Data Primary Care Provider: Mary Grace Cruz Attending Provider: Marion Escobedo Admit Date/Time: 09/19/18 10:40 Quality VTE Deep Vein Thrombosis/Pulmonary Embolism Present on Admission: No
[2018-09-21] MEDS: ENOXAPARIN 40 MG/0.4 ML SYRINGE SUBCUT (09:39)
[2018-09-21] MEDS: FLUoxetine 20 MG CAPSULE 80 MG PO (09:40)
[2018-09-21] MEDS: PROPRANOLOL 40 MG TABLET PO (09:40)
[2018-09-21] MEDS: LOSARTAN 50 MG TABLET PO (09:40)
--- NOTE | 2018-09-21 10:15 | PC.NURSE ---
Day shift: Left unit at approx 1015 in with his Father and SENIOR TECHNICAL EDITOR to private car. Paperwork signed. HAs all meds from pharmacy. All questions answered. He also has all personal belongings.
--- NOTE | 2018-09-21 15:25 | CM.DPNOTE ---
DC home today, no barriers or SW needs according to Dr Castro and RN. JW
== END 2018-09-21 10:17 | disposition home or self-care (01) | DRG 439 ==
LOC: ED 10:24 → AC 10:49
PROVIDERS: Internal Medicine; Admitting Provider Internal Medicine; Emergency Provider Emergency Medicine; Family Provider Physician Assistant; PCP Physician Assistant; Visit Provider Internal Medicine
DX: K85.90 Acute pancreatitis without necrosis or infection, unspecified (principal); Z68.42 Body mass index [BMI] 45.0-49.9, adult; E66.01 Morbid (severe) obesity due to excess calories; I10 Essential (primary) hypertension; E11.9 Type 2 diabetes mellitus without complications; F31.9 Bipolar disorder, unspecified; Z79.4 Long term (current) use of insulin; E78.5 Hyperlipidemia, unspecified
CPT/HCPCS: 36415; 36591; 74177; 74181; 76700; 80048; 80053; 81001; 81003; 82962; 83690; 83735; 85025; 94762; 96361; 96374; 96375; 99283; 99285; G0378; J1170; J1200; J1650; J1885; J2060; J2270; J2405; J3480

== ENCOUNTER 2018-11-22 04:13 | Emergency (ER) | payer OTHER, SELFPAY ==
[2018-09-21 09:16] VITALS: BMI 51.2
[2018-11-22 04:35] VITALS: BP 134/71; PULSE 64; RESP 12; TEMP 36.3; O2SAT 99; BMI 50.1
[2018-11-22 04:47] VITALS: BP 124/78; PULSE 65; RESP 20; O2SAT 99
[2018-11-22 04:52] LABS: Bacteria Urine None Seen; RBC Urine None Seen (0-5/HPF); WBC Urine None Seen (0-5/HPF)
--- NOTE | 2018-11-22 05:02 | ED_ITS ---
HPI - Chest Pain General Chief Complaint: Chest Pain Stated Complaint: trouble breathing, chest pain Time Seen by Provider: 11/22/18 04:49 Source: patient Mode of arrival: ambulatory Limitations: no limitations History of Present Illness HPI narrative: The patient has been ill for about 1 day. He developed epigastr ic abdominal pain yesterday. With this he has no nausea, vomiting or diarrhea. He has no back pain. The pain radiates into the substernal area, to his throat. He especially complains of the sore throat. He has no dysphagia. He denies sinus pressure or pain. He feeling like he has difficulty breathing. He has a cough that is nonproductive. He is a nonsmoker. He agrees this may be an illne ss, but he is admitted here 2 months ago. At that time he have acute pancreatitis with a lipase level greater than 2000. His lipase resolved to normal quickly. He has a history of morbid obesity, diabetes, hypertension and hyperlipidemia. He does not drink alcohol, he has no gallbladder disease. During that admission is workup was extensive including abdominal ultrasound, abdominal CT, abdominal MRI. There is no evidence of acute cholecystitis or pancreatitis on those studies. The reason for the pancreatitis is unknown. Related Data Home Medications Medication Instructions Recorded Confirmed Basaglar TaishaikPen U-100 Insulin 10 - 30 units SUBCUT TID-QID 09/19/18 09/25/18 Lancet: Device 1 ea MISCELLANEOUS DIRECTED 09/19/18 09/25/18 [Glucometer ] 1 ea MISCELLANEOUS DIRECTED 09/19/18 09/25/18 atorvastatin [Lipitor] 10 mg PO BEDTIME 09/19/18 09/25/18 prazosin [Minipress] 10 mg PO BEDTIME 09/19/18 09/25/18 trazodone 200 mg PO BEDTIME 09/19/18 09/25/18 blood sugar diagnostic strips #10 each 09/24/18 09/25/18 Previous Rx's Medication Instructions Recorded losartan [Cozaar] 50 mg PO BID #180 tab 10/25/17 propranolol 40 mg tablet 40 mg PO TID #270 tab 02/01/18 ziprasidone 60 mg capsule 60 mg PO BID #180 cap 02/01/18 fluoxetine 40 mg capsule 80 mg PO DAILY #90 cap 10/08/18 insulin regular human U-500 50 unit SUBCUT .COMPLEX #3 ml 11/07/18 concentrate 500 unit/mL(3 mL) subcut pen BD Pen [place] #100 each 11/08/18 Allergies Allergy/AdvReac Type Severity Reaction Status Date / Time No Known Drug Allergies Allergy Verified 09/25/18 14:56 Review of Systems Review of Systems ROS Unobtainable: All systems reviewed & are unremarkable except as noted in HPI and below Constitutional Denies chills, Denies fever(s), Denies lethargy and Denies weakness Eyes Denies irritation ENT Ears, Nose, Mouth, and Throat: Denies dizziness, Denies hoarseness, Denies mouth lesions, Denies neck pain and Reports sore throat Cardiovascular Reports chest pain, Denies irregular heart rhythm, Denies lightheadedness, Denies palpitations, Denies dyspnea, Denies dyspnea on exertion and Denies orthopnea Respiratory Denies cough, Denies dyspnea, Denies dyspnea on exertion and Denies wheezing Gastrointestinal Gastrointestinal: Reports as per HPI, Reports abdominal pain, Denies change in bowel habits, Denies diarrhea, Denies nausea and Denies vomiting Genitourinary Denies dysuria Musculoskeletal Denies neck pain Integumentary/Breasts Denies pruritus, Denies erythema, Denies rash and Denies wounds Neurologic Denies dizziness and Denies weakness Endocrine Denies palpitations Allergic/Immunologic Denies wheezing [facility] Medical History Diabetes, type 1.5, controlled, managed as type 2 (Chronic) Mixed hyperlipidemia (Chronic) Schizophrenia (Suspected) PTSD (post-traumatic stress disorder) (Chronic) Erectile dysfunction (Chronic) Bipolar affective disorder (Chronic) Hyperlipidemia (Chronic) Hypertension (Chronic) Vitamin D deficiency (Chronic) Type II diabetes mellitus, well controlled (Chronic) Morbid obesity with BMI of 50.0-59.9, adult (Chronic) Low testosterone in male (Chronic) Colitis (Suspected) Anxiety (Resolved) Depression (Resolved) Chronic back pain (Inactive) Surgical History Hx of discectomy (Resolved 2009) Hx of surgical procedure (Resolved 2005) Family History Father Hyperlipidemia Mother Diabetes mellitus Hypertension Hyperlipidemia Grandfather Cancer Grandmother Cancer Social History household members: family Smoking Status: Never smoker second hand exposure: No alcohol intake: never substance use type: does not use additional social history: No current social issues Family History Father Hyperlipidemia Mother Diabetes mellitus Hypertension Hyperlipidemia Grandfather Cancer Grandmother Cancer Social History household members: family Smoking Status: Never smoker second hand exposure: No alcohol intake: never substance use type: does not use additional social history: No current social issues Exam Initial Vital Signs Initial Vital Signs: Vital Signs Temperature 97.4 F L 11/22/18 04:35 Pulse Rate 64 11/22/18 04:35 Respiratory Rate 12 11/22/18 04:35 Blood Pressure 134/71 11/22/18 04:35 Pulse Oximetry 99 11/22/18 04:35 Const General: cooperative and well developed Nutritional Appearance: well nourished Orientation: alert, awake, oriented x3 and not confused HENMT Head: normocephalic and atraumatic Ears: external ears normal and TM's normal bilaterally Nose: external nose normal and No nasal discharge Face and sinus: sinuses nontender, face symmetric, no sinus tenderness and No dry mucous membranes Mouth: oral mucosae normal and moist mucous membranes Teeth and gingiva: dentition normal Throat: posterior oropharynx normal, tonsils normal and uvula midline Eyes Conjunctivae: conjunctivae normal Sclera: sclerae normal Neck Neck: normal visual inspection, trachea midline, No lymphadenopathy, No midline deformity and No JVD Resp Effort & Inspection: normal respiratory effort, able to speak in complete sentences, no respiratory distress and no use of accessory muscles Auscultation: clear to auscultation bilaterally, no rales, no rhonchi and no wheezes Cardio Rate: regular rate Rhythm: regular rhythm Heart Sounds: no click, no gallops, no murmurs and no rubs Pulses: normal peripheral pulses GI Inspection: non-distended Palpation: soft, no hepatosplenomegaly, No pulsatile mass and tender (Epigastric tenderness without distention, guarding or rebound.) Auscultation: normal bowel sounds Skin General: no rashes or lesions noted, No jaundice and No petechiae Neuro General: alert, oriented x3, gait normal and no focal motor deficits Speech: speech normal Course Course Narrative: The patient's GI symptoms have improved with medications given. He still complains of sore throat. On exam there is no evidence of infection or inflammation in the oral pharyngeal space. The assessment suggest his symptoms are most likely associated with a viral syndrome. Orders Ordered: ED Orders 11/22/18 EKG-12 Lead Stat 11/22/18 04:25 Urine Microscopic Stat 11/22/18 07:09 XR chest 2V Stat 11/22/18 07:18 Complete Blood Count AUTO DIFF Stat Comprehensive Metabolic Panel Stat Lipase Stat Troponin & CK Cardiac Panel Stat Discontinued Medications Ketorolac Tromethamine (Toradol) 30 mg IV NOW ONE Stop: 11/22/18 05:05 Last Admin: 11/22/18 05:11 Dose: 30 mg Pantoprazole Sodium (Protonix) 40 mg IV NOW ONE Stop: 11/22/18 05:05 Last Admin: 11/22/18 05:11 Dose: 40 mg Vital Signs - 8 hr 11/22/18 04:35 11/22/18 04:47 11/22/18 06:17 Temperature 97.4 F L Pulse Rate 64 65 72 Respiratory Rate 12 20 18 Blood Pressure 134/71 Blood Pressure [Left Arm] 124/78 118/69 Pulse Oximetry 99 99 98 11/22/18 07:30 Temperature Pulse Rate 61 Respiratory Rate 15 Blood Pressure Blood Pressure [Left Arm] 143/104 H Pulse Oximetry 100 MDM - Chest Pain Lab Data Result diagrams: 11/22/18 07:18 11/22/18 07:18 Lab Results 11/22/18 11/22/18 11/22/18 Range/Units 04:25 07:18 07:18 WBC 7.6 (4.5-11.0) X10^3/uL RBC 4.24 L (4.5-5.9) X10^6/uL Hgb 13.3 L (13.5-17.5) g/dL Hct 39.2 L (41-53) % MCV 92.4 (80-100) fL MCH 31.5 (26-34) PG MCHC 34.1 (30-36) % RDW 14.5 (11.6-14.8) % Plt Count 149 L (150-400) X10^3/uL Neut % (Auto) 63.4 (50-75) % Lymph % (Auto) 26.7 (25-40) % [place] % (Auto) 8.3 (3-14) % Eos % (Auto) 1.1 L (2-4) % Baso % (Auto) 0.5 (0-2) % Neut # (Auto) 4800 (9035-5957) /uL Lymph # (Auto) 2000 (7082-6935) /uL [place] # (Auto) 600 (0-900) /uL Eos # (Auto) 100 (0-450) /uL Baso # (Auto) 0 (0-100) /uL Sodium 139 (137-145) mmol/L Potassium 3.8 (3.4-5.1) mmol/L Chloride 95 L (98-107) mmol/L Carbon Dioxide 28 (22-32) mmol/L BUN 15 (9-20) mg/dL Creatinine 0.80 (0.66-1.25) mg/dL Estimated GFR > 60.0 (>60) mL/min BUN/Creatinine Ratio 18.8 (6-22) Glucose 93 (70-100) mg/dL Calcium 8.6 (8.4-10.2) mg/dL Total Bilirubin 0.6 (0.2-1.3) mg/dL AST 91 H (17-59) IU/L ALT 38 (21-72) IU/L Alkaline Phosphatase 74 (38-126) U/L Total Creatine Kinase 136 (55-170) U/L CK-MB (CK-2) 1.41 (<2.37) ng/mL CK-MB (CK-2) Rel Index 1.0 L (1.5-5.0) % Troponin I < 0.012 (0.01-0.034) ng/mL Total Protein 7.6 (6.3-8.2) g/dL Albumin 4.5 (3.5-5.0) g/dL Globulin 3.1 (1.7-4.1) g/dL Albumin/Globulin Ratio 1.5 (1.0-2.8) Lipase 71 (23-300) U/L Urine RBC None seen (0-5/HPF) Urine WBC None seen (0-5/HPF) Urine Bacteria None seen (None) Ur Culture Indicated? Cult not indicated Micro UA Comment Microscopic normal Imaging Data Chest x-ray: My impression: Normal ECG Data Attestation: I personally reviewed and interpreted this ECG as follows: (Normal sinus rhythm rate 62 beats per minute. IVCD. No ectopy. Normal ST T waves. No acute findings.) Discharge Plan Departure Patient Disposition: Home Clinical Impression: Acute viral syndrome Instructions: DI for Viral Syndrome Activity Restrictions/Additional Instructions: Tylenol 2 tabs every 4 hours as needed for pain or fever. Drink plenty of fluids, be sure you are well hydrated. Consider throat lozenges, and perhaps warm teas to help alleviate the throat pain. Expect symptoms last 3 or 4 days. Follow-up with her doctor if you have ongoing concerns after that time period. Return to ER as necessary. Prescriptions: No Action blood sugar diagnostic strip .ROUTE .MEDSUPPLY Qty: 10 RF: 0 propranolol 40 mg tablet 40 mg PO TID Qty: 270 RF: 3 ziprasidone HCl [Geodon] 60 mg capsule 60 mg PO BID Qty: 180 RF: 3 losartan [Cozaar] 50 MG tablet 50 mg PO BID Qty: 180 RF: 3 fluoxetine 40 mg capsule 80 mg PO DAILY Qty: 90 RF: 3 Humulin R U-500 (Conc) Kwikpen 500 unit/mL (3 mL) insulin pen 50 unit SUBCUT .COMPLEX Qty: 3 RF: 3 BD Pen Francis .ROUTE .MEDSUPPLY Qty: 100 RF: 3 Basaglar KwikPen U-100 Insulin 100 unit/mL (3 mL) Insulin Pen 10 - 30 units subcut TID-QID RF: 0 prazosin [Minipress] 5 mg capsule 10 mg PO BEDTIME RF: 0 atorvastatin [Lipitor] 10 mg tablet 10 mg PO BEDTIME RF: 0 trazodone 100 mg tablet 200 mg PO BEDTIME RF: 0 Lancet: Device 1 ea miscellaneous DIRECTED RF: 0 [Glucometer ] 1 ea miscellaneous DIRECTED RF: 0 Referrals: Gucci Matta MD [Primary Care Provider] - Stand Alone Forms: Work Release Note
[2018-11-22] MEDS: PANTOPRAZOLE 40 MG VIAL IV (05:11)
[2018-11-22] MEDS: KETOROLAC 60 MG/2 ML VIAL 30 MG IV (05:11)
[2018-11-22 05:16] LABS: Culture Indicated Urine Cult Not Indicated; Urine Comments Microscopic Normal
[2018-11-22 06:17] VITALS: BP 118/69; PULSE 72; RESP 18; O2SAT 98
--- NOTE | 2018-11-22 07:09 | DI.RAD.S_ITS ---
PROCEDURE: XR CHEST 2V INDICATIONS: Cough. Chest pain TECHNIQUE: 2 views of the chest were acquired. COMPARISON: [facility], , CHEST 1 VIEW, 10/02/2016, 12:39. FINDINGS: Surgical changes and devices: None. Lungs and pleura: Lungs are clear. No pleural effusions or pneumothorax. Mediastinum: Mediastinal contours are normal. Heart size is normal. Bones and chest wall: No suspicious bony abnormalities. Soft tissues appear unremarkable. IMPRESSION: No acute cardiopulmonary disease process. Dictated by: Mahi Ham MD, PhD on 11/22/2018 at 7:56 Approved by: Mahi Ham MD, PhD on 11/22/2018 at 7:57
[2018-11-22 07:27] LABS: Add Manual Diff / Slide Review NO; Basophils Absolute Auto 0 /uL (0-100); Basophils Percent Auto 0.5 % (0-2); Eosinophils Absolute Auto 100 /uL (0-450); Eosinophils Percent Auto 1.1 % (2-4); Hematocrit 39.2 % (41-53); Hemoglobin 13.3 g/dL (13.5-17.5); Lymphocytes Absolute Auto 2000 /uL (1100-4500); Lymphocytes Percent Auto 26.7 % (25-40); Mean Corpuscular HGB Conc 34.1 % (30-36); Mean Corpuscular Hemoglobin 31.5 PG (26-34); Mean Corpuscular Volume 92.4 fL (80-100); Monocytes Absolute Auto 600 /uL (0-900); Monocytes Percent Auto 8.3 % (3-14); Neutrophils Absolute Auto 4800 /uL (1500-7000); Neutrophils Percent Auto 63.4 % (50-75); Platelet Count 149 X10^3/uL (150-400); Red Blood Cell Count 4.24 X10^6/uL (4.5-5.9); Red Cell Distribution Width 14.5 % (11.6-14.8); White Blood Cell Count 7.6 X10^3/uL (4.5-11.0)
[2018-11-22 07:30] VITALS: BP 143/104; PULSE 61; RESP 15; O2SAT 100
[2018-11-22 07:31] LABS: Alanine Aminotransferase 38 IU/L (21-72); Albumin 4.5 g/dL (3.5-5.0); Albumin Globulin Ratio 1.5 (1.0-2.8); Alkaline Phosphatase 74 U/L (38-126); Aspartate Aminotransferase 91 IU/L (17-59); BUN Creatinine Ratio 18.8 (6-22); Bilirubin Total 0.6 mg/dL (0.2-1.3); Blood Urea Nitrogen 15 mg/dL (9-20); Calcium 8.6 mg/dL (8.4-10.2); Carbon Dioxide 28 mmol/L (22-32); Chloride 95 mmol/L (98-107); Creatine Kinase 136 U/L (55-170); Estimated Glomerular Filt Rate > 60.0 mL/min (>60); Globulin 3.1 g/dL (1.7-4.1); Glucose 93 mg/dL (70-100); Lipase 71 U/L (23-300); Potassium 3.8 mmol/L (3.4-5.1); Sodium 139 mmol/L (137-145); Total Protein 7.6 g/dL (6.3-8.2)
[2018-11-22 07:43] LABS: Troponin I < 0.012 ng/mL (0.01-0.034)
[2018-11-22 07:46] LABS: Creatine Kinase MB 1.41 ng/mL (<2.37); HEMOLYSIS 28 (0-50)
[2018-11-22 08:30] VITALS: BP 150/79; PULSE 59; RESP 28; O2SAT 96
== END 2018-11-22 08:25 | disposition home or self-care (01) ==
PROVIDERS: Emergency Provider Emergency Medicine; PCP Internal Medicine
DX: B34.9 Viral infection, unspecified (principal); R07.89 Other chest pain; R10.13 Epigastric pain; R06.00 Dyspnea, unspecified
CPT/HCPCS: 71046; 80053; 81015; 82550; 82553; 83690; 84484; 85025; 93005; 93010; 96374; 96375; 99283; 99285; C9113; J1885

== ENCOUNTER 2018-12-15 21:19 | Emergency (ER) | payer OTHER, SELFPAY ==
[2018-09-21 09:16] VITALS: BMI 51.2
[2018-12-15 21:24] VITALS: PULSE 69; RESP 20; TEMP 36.4; O2SAT 99
--- NOTE | 2018-12-15 21:28 | ED.ABDPAIN ---
HPI - Abdominal Pain General Chief Complaint: Abdominal Pain Stated Complaint: states pancreas is bothering him Time Seen by Provider: 12/15/18 21:25 Source: patient Mode of arrival: ambulatory Limitations: no limitations History of Present Illness HPI narrative: Patient is a 37-year-old male. He is an insulin-dependent diabetic. He is here for approximately 5 days of epigastric and ?esophageal ?pain. He states that it does feel similar to his prior episode of pancreatitis. He states he has been taking all of his medications. He states that he has been exposed to ?secondhand smoke ?recently due to the job that he is on. No vomiting. No change in bowel habits. No urinary symptoms. Related Data Home Medications Medication Instructions Recorded Confirmed Basaglar TaishaikPen U-100 Insulin 10 - 30 units SUBCUT TID-QID 09/19/18 09/25/18 Lancet: Device 1 ea MISCELLANEOUS DIRECTED 09/19/18 09/25/18 [Glucometer ] 1 ea MISCELLANEOUS DIRECTED 09/19/18 09/25/18 atorvastatin [Lipitor] 10 mg PO BEDTIME 09/19/18 09/25/18 prazosin [Minipress] 10 mg PO BEDTIME 09/19/18 09/25/18 blood sugar diagnostic strips #10 each 09/24/18 09/25/18 Previous Rx's Medication Instructions Recorded losartan [Cozaar] 50 mg PO BID #180 tab 10/25/17 propranolol 40 mg tablet 40 mg PO TID #270 tab 02/01/18 ziprasidone 60 mg capsule 60 mg PO BID #180 cap 02/01/18 fluoxetine 40 mg capsule 80 mg PO DAILY #90 cap 10/08/18 insulin regular human U-500 50 unit SUBCUT .COMPLEX #3 ml 11/07/18 concentrate 500 unit/mL(3 mL) subcut pen BD Pen [place] #100 each 11/08/18 trazodone 100 mg tablet 200 mg PO BEDTIME #180 tab 12/04/18 Allergies Allergy/AdvReac Type Severity Reaction Status Date / Time No Known Drug Allergies Allergy Verified 09/25/18 14:56 Review of Systems Constitutional Denies fever(s) Cardiovascular Denies dyspnea Comments: ?Esophageal ?pain Respiratory Denies cough and Denies dyspnea Gastrointestinal Gastrointestinal: Reports abdominal pain, Denies change in stool character and Denies vomiting Genitourinary Denies dysuria Musculoskeletal Denies myalgias and Denies arthralgias Integumentary/Breasts Denies rash Neurologic Denies behavioral changes Psychiatric Denies behavioral changes Hematologic/Lymphatic Denies easy bleeding and Denies easy bruising Allergic/Immunologic Denies urticaria [facility] Medical History Diabetes, type 1.5, controlled, managed as type 2 (Chronic) Mixed hyperlipidemia (Chronic) Schizophrenia (Suspected) PTSD (post-traumatic stress disorder) (Chronic) Erectile dysfunction (Chronic) Bipolar affective disorder (Chronic) Hyperlipidemia (Chronic) Hypertension (Chronic) Vitamin D deficiency (Chronic) Type II diabetes mellitus, well controlled (Chronic) Morbid obesity with BMI of 50.0-59.9, adult (Chronic) Low testosterone in male (Chronic) Colitis (Suspected) Anxiety (Resolved) Depression (Resolved) Chronic back pain (Inactive) Social History household members: family Smoking Status: Never smoker second hand exposure: No alcohol intake: never substance use type: does not use additional social history: No current social issues Exam Initial Vital Signs Initial Vital Signs: Vital Signs Temperature 97.5 F L 12/15/18 21:24 Pulse Rate 69 12/15/18 21:24 Respiratory Rate 20 12/15/18 21:24 Pulse Oximetry 99 12/15/18 21:24 Const General: cooperative, well developed, well groomed and No acute distress Orientation: alert and awake HENMT Head: normal to inspection and normocephalic Resp Effort & Inspection: normal respiratory effort Auscultation: clear to auscultation bilaterally Cardio Rate: regular rate Rhythm: regular rhythm GI Inspection: non-distended Palpation: soft, No firm and tender (Epigastric region) Skin Lesions: no lesions Rashes: no rashes Neuro General: alert, awake and oriented x3 Extrem General: normal to inspection and capillary refill normal Psych Appearance: grossly normal and well kempt Course Orders Ordered: ED Orders 12/15/18 21:30 CBC [Complete Blood Count AUTO DIFF] Stat Comprehensive Metabolic Panel Stat Lipase Stat Troponin I Stat 12/15/18 21:32 XR chest 1V Stat EKG-12 Lead Stat Discontinued Medications Al Hydrox/Mg Hydrox/Simethicone 20 ml/ Lidocaine HCl 15 ml 0 ml PO NOW ONE Stop: 12/15/18 21:32 Last Admin: 12/15/18 21:41 Dose: 35 ml Pantoprazole Sodium (Protonix) 40 mg IV NOW ONE Stop: 12/15/18 21:32 Last Admin: 12/15/18 21:41 Dose: 40 mg Vital Signs - 8 hr 12/15/18 21:24 12/15/18 23:20 Temperature 97.5 F L Pulse Rate 69 66 Respiratory Rate 20 16 Blood Pressure 137/73 Pulse Oximetry 99 99 MDM - Abdominal Pain Lab Data Attestation: I reviewed the patient's lab results. Result diagrams: 12/15/18 21:30 12/15/18 21:30 Lab Results 12/15/18 12/15/18 12/15/18 Range/Units 21:30 21:30 21:30 WBC 5.9 (4.5-11.0) X10^3/uL RBC 4.51 (4.5-5.9) X10^6/uL Hgb 14.4 (13.5-17.5) g/dL Hct 41.4 (41-53) % MCV 91.9 (80-100) fL MCH 31.9 (26-34) PG MCHC 34.7 (30-36) % RDW 14.2 (11.6-14.8) % Plt Count 179 (150-400) X10^3/uL Neut % (Auto) 43.1 L (50-75) % Lymph % (Auto) 49.4 H (25-40) % [place] % (Auto) 6.0 (3-14) % Eos % (Auto) 0.6 L (2-4) % Baso % (Auto) 0.9 (0-2) % Neut # (Auto) 2500 (7055-8363) /uL Lymph # (Auto) 2900 (9170-0076) /uL [place] # (Auto) 400 (0-900) /uL Eos # (Auto) 0 (0-450) /uL Baso # (Auto) 100 (0-100) /uL Sodium 135 L (137-145) mmol/L Potassium 4.1 (3.4-5.1) mmol/L Chloride 97 L (98-107) mmol/L Carbon Dioxide 31 (22-32) mmol/L BUN 13 (9-20) mg/dL Creatinine 0.70 (0.66-1.25) mg/dL Estimated GFR > 60.0 (>60) mL/min BUN/Creatinine Ratio 18.6 (6-22) Glucose 100 (70-100) mg/dL Calcium 9.4 (8.4-10.2) mg/dL Total Bilirubin 0.3 (0.2-1.3) mg/dL AST 31 (17-59) IU/L ALT 42 (21-72) IU/L Alkaline Phosphatase 80 (38-126) U/L Troponin I < 0.012 (0.01-0.034) ng/mL Total Protein 7.4 (6.3-8.2) g/dL Albumin 4.4 (3.5-5.0) g/dL Globulin 3.0 (1.7-4.1) g/dL Albumin/Globulin Ratio 1.5 (1.0-2.8) Lipase 51 (23-300) U/L ECG Data Attestation: I personally reviewed and interpreted this ECG as follows: Prior ECG tracings: not available for review Interpretation: Sinus rhythm Ventricular rate of 67 Normal axis Normal QRS Normal QTC No ST T wave changes MDM Narrative Medical decision making narrative: Patient's labs are unremarkable. Lipase is unremarkable. Patient reports significant improvement in his symptoms after the GI cocktail and Protonix here in the ER. No signs of pancreatitis. He does have a benign abdominal exam. Will send home with instructions to start taking Zantac. He will contact his primary provider. He expressed understanding and agreement with plan. Discharge Plan Departure Patient Disposition: Home Clinical Impression: Abdominal pain Qualifiers: Abdominal location: epigastric Qualified Code(s): R10.13 - Epigastric pain Gastroesophageal reflux disease Qualifiers: Esophagitis presence: esophagitis presence not specified Qualified Code(s): K21.9 - Gastro-esophageal reflux disease without esophagitis Discharge Date/Time: 12/15/18 23:22 Interventions: ED Discharge Assessment Last Done: 12/15/18 23:20 Instructions: Acute Abdominal Pain, DI for Gastroesophageal Reflux Disease (GERD) Activity Restrictions/Additional Instructions: Recommend you start taking Zantac on a daily basis for the next week like we discussed. Contact your primary care doctor. Return to the emergency department for any new or worsening symptoms Prescriptions: No Action blood sugar diagnostic strip .ROUTE .MEDSUPPLY Qty: 10 RF: 0 propranolol 40 mg tablet 40 mg PO TID Qty: 270 RF: 3 ziprasidone HCl [Geodon] 60 mg capsule 60 mg PO BID Qty: 180 RF: 3 losartan [Cozaar] 50 MG tablet 50 mg PO BID Qty: 180 RF: 3 fluoxetine 40 mg capsule 80 mg PO DAILY Qty: 90 RF: 3 Humulin R U-500 (Conc) Kwikpen 500 unit/mL (3 mL) insulin pen 50 unit SUBCUT .COMPLEX Qty: 3 RF: 3 BD Pen [place] .ROUTE .MEDSUPPLY Qty: 100 RF: 3 trazodone 100 mg tablet 200 mg PO BEDTIME Qty: 180 RF: 3 Basaglar KwikPen U-100 Insulin 100 unit/mL (3 mL) Insulin Pen 10 - 30 units subcut TID-QID RF: 0 prazosin [Minipress] 5 mg capsule 10 mg PO BEDTIME RF: 0 atorvastatin [Lipitor] 10 mg tablet 10 mg PO BEDTIME RF: 0 Lancet: Device 1 ea miscellaneous DIRECTED RF: 0 [Glucometer ] 1 ea miscellaneous DIRECTED RF: 0 Referrals: Gucci Matta MD [Primary Care Provider] -
--- NOTE | 2018-12-15 21:32 | DI.RAD.S_ITS ---
PROCEDURE: XR CHEST 1V INDICATIONS: Chest pain TECHNIQUE: One view of the chest was acquired. COMPARISON: [facility], , CHEST 2 VIEW, 01/17/2016, 22:26. [facility], , CHEST 1 VIEW, 10/02/2016, 12:39. [facility], , XR CHEST 2V, 11/22/2018, 7:18. FINDINGS: Surgical changes and devices: None. Lungs and pleura: An incomplete inspiratory result is noted, causing a crowded appearance to the lung markings. No focal infiltrates are seen. No pneumothorax or significant pleural effusions are seen. Mediastinum: Mediastinal contours appear normal. Heart size is normal. Bones and chest wall: No suspicious bony lesions. Overlying soft tissues appear unremarkable. IMPRESSION: Portable chest within normal limits. Dictated by: Manuel Warner M.D. on 12/16/2018 at 7:36 Approved by: Manuel Warner M.D. on 12/16/2018 at 7:37
[2018-12-15] MEDS: PANTOPRAZOLE 40 MG VIAL IV (21:41)
[2018-12-15] MEDS: MAG HYDROX/ALUMINUM/SIMETH SUS 20 ML, LIDOCAINE VISCOUS 2% 15 ML PO (21:41)
[2018-12-15 21:43] LABS: Add Manual Diff / Slide Review NO; Basophils Absolute Auto 100 /uL (0-100); Basophils Percent Auto 0.9 % (0-2); Eosinophils Absolute Auto 0 /uL (0-450); Eosinophils Percent Auto 0.6 % (2-4); Hematocrit 41.4 % (41-53); Hemoglobin 14.4 g/dL (13.5-17.5); Lymphocytes Absolute Auto 2900 /uL (1100-4500); Lymphocytes Percent Auto 49.4 % (25-40); Mean Corpuscular HGB Conc 34.7 % (30-36); Mean Corpuscular Hemoglobin 31.9 PG (26-34); Mean Corpuscular Volume 91.9 fL (80-100); Monocytes Absolute Auto 400 /uL (0-900); Neutrophils Absolute Auto 2500 /uL (1500-7000); Neutrophils Percent Auto 43.1 % (50-75); Platelet Count 179 X10^3/uL (150-400); Red Blood Cell Count 4.51 X10^6/uL (4.5-5.9); Red Cell Distribution Width 14.2 % (11.6-14.8); White Blood Cell Count 5.9 X10^3/uL (4.5-11.0)
[2018-12-15 21:59] LABS: Alanine Aminotransferase 42 IU/L (21-72); Albumin 4.4 g/dL (3.5-5.0); Albumin Globulin Ratio 1.5 (1.0-2.8); Alkaline Phosphatase 80 U/L (38-126); Aspartate Aminotransferase 31 IU/L (17-59); BUN Creatinine Ratio 18.6 (6-22); Bilirubin Total 0.3 mg/dL (0.2-1.3); Blood Urea Nitrogen 13 mg/dL (9-20); Calcium 9.4 mg/dL (8.4-10.2); Carbon Dioxide 31 mmol/L (22-32); Chloride 97 mmol/L (98-107); Estimated Glomerular Filt Rate > 60.0 mL/min (>60); Glucose 100 mg/dL (70-100); HEMOLYSIS 21 (0-50); Lipase 51 U/L (23-300); Potassium 4.1 mmol/L (3.4-5.1); Sodium 135 mmol/L (137-145); Total Protein 7.4 g/dL (6.3-8.2)
[2018-12-15 22:03] LABS: Troponin I < 0.012 ng/mL (0.01-0.034)
[2018-12-15 23:20] VITALS: BP 137/73; PULSE 66; RESP 16; O2SAT 99
== END 2018-12-15 23:22 | disposition home or self-care (01) ==
PROVIDERS: Emergency Provider Emergency Medicine; PCP Internal Medicine
DX: R10.13 Epigastric pain (principal); K21.9 Gastro-esophageal reflux disease without esophagitis
CPT/HCPCS: 36591; 71045; 80053; 83690; 84484; 85025; 93005; 96374; 99282; 99285; C9113

== ENCOUNTER 2019-02-13 18:30 | Emergency (ER) | payer OTHER, SELFPAY ==
[2018-09-21 09:16] VITALS: BMI 51.2
[2019-02-13 18:34] VITALS: BP 153/92; PULSE 78; RESP 20; TEMP 37.1; O2SAT 98
--- NOTE | 2019-02-13 18:44 | ED_ITS ---
HPI - Abdominal Pain General Chief Complaint: Abdominal Pain Stated Complaint: states bad abdominal pain x 3 days Time Seen by Provider: 02/13/19 18:32 Source: patient Mode of arrival: ambulatory Limitations: no limitations History of Present Illness HPI narrative: 38-year-old male here for evaluation of right-sided abdominal pain. Patient states that it has been going on for the past 3 days and has been worsening for the past 3 days. Not associated with eating. States it is different than his prior GI or pancreatitis pain. He states he has had frequent bowel movements however they are not media. No pain with bowel no change in abdominal pain with bowel. Has had some urinary retention but no other dysuria. No fevers. Has not tried anything for symptoms prior to arrival. No prior abdominal surgeries. Related Data Home Medications Medication Instructions Recorded Confirmed Basaglar KwikPen U-100 Insulin 10 - 30 units SUBCUT TID-QID 09/19/18 09/25/18 Lancet: Device 1 ea MISCELLANEOUS DIRECTED 09/19/18 09/25/18 [Glucometer ] 1 ea MISCELLANEOUS DIRECTED 09/19/18 09/25/18 atorvastatin [Lipitor] 10 mg PO BEDTIME 09/19/18 09/25/18 prazosin [Minipress] 10 mg PO BEDTIME 09/19/18 09/25/18 Previous Rx's Medication Instructions Recorded propranolol 40 mg tablet 40 mg PO TID #270 tab 02/01/18 ziprasidone 60 mg capsule 60 mg PO BID #180 cap 02/01/18 fluoxetine 40 mg capsule 80 mg PO DAILY #90 cap 10/08/18 insulin regular human U-500 50 unit SUBCUT .COMPLEX #3 ml 11/07/18 concentrate 500 unit/mL(3 mL) subcut pen BD Pen Sims #100 each 11/08/18 trazodone 100 mg tablet 200 mg PO BEDTIME #180 tab 12/04/18 losartan 50 mg tablet 50 mg PO BID #180 tab 01/14/19 blood sugar diagnostic strips #100 each 01/21/19 Allergies Allergy/AdvReac Type Severity Reaction Status Date / Time No Known Drug Allergies Allergy Verified 09/25/18 14:56 Review of Systems Constitutional Denies fever(s) and Denies headache(s) ENT Ears, Nose, Mouth, and Throat: Denies headache(s) Cardiovascular Denies chest pain and Denies dyspnea Respiratory Denies cough and Denies dyspnea Gastrointestinal Gastrointestinal: Reports abdominal pain, Denies change in stool character, Reports nausea and Denies vomiting Genitourinary Denies dysuria and Reports urinary hesitancy Musculoskeletal Denies myalgias and Denies arthralgias Integumentary/Breasts Denies new lesions and Denies rash Neurologic Denies behavioral changes and Denies headache(s) Psychiatric Denies behavioral changes Hematologic/Lymphatic Denies easy bleeding and Denies easy bruising [facility] Medical History Diabetes, type 1.5, controlled, managed as type 2 (Chronic) Mixed hyperlipidemia (Chronic) Schizophrenia (Suspected) PTSD (post-traumatic stress disorder) (Chronic) Erectile dysfunction (Chronic) Bipolar affective disorder (Chronic) Hyperlipidemia (Chronic) Hypertension (Chronic) Vitamin D deficiency (Chronic) Type II diabetes mellitus, well controlled (Chronic) Morbid obesity with BMI of 50.0-59.9, adult (Chronic) Low testosterone in male (Chronic) Colitis (Suspected) Anxiety (Resolved) Depression (Resolved) Chronic back pain (Inactive) Surgical History Hx of discectomy (Resolved 2009) Hx of surgical procedure (Resolved 2005) Family History Father Hyperlipidemia Mother Diabetes mellitus Hypertension Hyperlipidemia Grandfather Cancer Grandmother Cancer Social History household members: family Smoking Status: Never smoker second hand exposure: No alcohol intake: never substance use type: does not use additional social history: No current social issues Family History Father Hyperlipidemia Mother Diabetes mellitus Hypertension Hyperlipidemia Grandfather Cancer Grandmother Cancer Social History household members: family Smoking Status: Never smoker second hand exposure: No alcohol intake: never substance use type: does not use additional social history: No current social issues Exam Initial Vital Signs Initial Vital Signs: Vital Signs Temperature 98.8 F 02/13/19 18:34 Pulse Rate 78 02/13/19 18:34 Respiratory Rate 20 02/13/19 18:34 Blood Pressure 153/92 H 02/13/19 18:34 Pulse Oximetry 98 02/13/19 18:34 Const General: cooperative, comfortable, well developed, well groomed and No acute distress Orientation: alert and awake Resp Effort & Inspection: normal respiratory effort Auscultation: clear to auscultation bilaterally Cardio Rate: regular rate Rhythm: regular rhythm GI Inspection: non-distended Palpation: soft, No firm and tender (Right upper quadrant and right lower quadrant) Skin Lesions: no lesions Rashes: no rashes Neuro General: alert and awake Cognition: normal cognition Speech: speech normal Gait: normal gait Extrem General: normal to inspection and capillary refill normal Psych Appearance: grossly normal and well kempt Course Orders Ordered: ED Orders 02/13/19 18:45 Complete Blood Count AUTO DIFF Stat Comprehensive Metabolic Panel Stat Lipase Stat 02/13/19 18:46 US abdomen limited Stat 02/13/19 19:40 CT abdomen pelvis w con Stat Discontinued Medications Al Hydrox/Mg Hydrox/Simethicone 20 ml/ Lidocaine HCl 15 ml 0 ml PO NOW ONE Stop: 02/13/19 18:46 Last Admin: 02/13/19 18:53 Dose: 30 ml Dextrose (D50w) 25 gm IV NOW ONE Stop: 02/13/19 20:38 Last Admin: 02/13/19 20:43 Dose: 25 gm Sodium Chloride (Normal Saline 0.9%) 1,000 mls @ 1,000 mls/hr IV BOLUS ONE Stop: 02/13/19 19:44 Last Infusion: 02/13/19 20:34 Dose: 0 mls/hr Admin: 02/13/19 18:52 Dose: 1,000 mls/hr Ondansetron HCl (Zofran) 4 mg IV NOW ONE Stop: 02/13/19 21:32 Last Admin: 02/13/19 21:37 Dose: 4 mg Ondansetron HCl (Zofran Odt Prepack) 1 bottle MISC SEEINSTR ONE Stop: 02/13/19 21:36 Last Admin: 02/13/19 22:12 Dose: 1 bottle Pantoprazole Sodium (Protonix) 40 mg IV NOW ONE Stop: 02/13/19 18:46 Last Admin: 02/13/19 18:52 Dose: 40 mg Vital Signs - 8 hr 02/13/19 18:34 02/13/19 20:45 02/13/19 21:00 Temperature 98.8 F Pulse Rate 78 71 75 Respiratory Rate 20 19 17 Blood Pressure 153/92 H Blood Pressure [Right Wrist] 152/67 H 130/82 Pulse Oximetry 98 97 97 02/13/19 22:00 02/13/19 22:08 Temperature Pulse Rate 69 Respiratory Rate 16 Blood Pressure 116/89 Blood Pressure [Right Wrist] 130/82 Pulse Oximetry 99 MDM - Abdominal Pain Medical Records Attestation: I reviewed the patient's medical records. Lab Data Attestation: I reviewed the patient's lab results. Result diagrams: 02/13/19 18:45 02/13/19 18:45 Lab Results 02/13/19 02/13/19 Range/Units 18:45 18:45 WBC 7.6 (4.5-11.0) X10^3/uL RBC 4.61 (4.5-5.9) X10^6/uL Hgb 14.5 (13.5-17.5) g/dL Hct 42.3 (41-53) % MCV 91.7 (80-100) fL MCH 31.4 (26-34) PG MCHC 34.3 (30-36) % RDW 14.3 (11.6-14.8) % Plt Count 171 (150-400) X10^3/uL Neut % (Auto) 59.5 (50-75) % Lymph % (Auto) 29.9 (25-40) % Florence % (Auto) 9.8 (3-14) % Eos % (Auto) 0.5 L (2-4) % Baso % (Auto) 0.3 (0-2) % Neut # (Auto) 4500 (8835-5989) /uL Lymph # (Auto) 2300 (3952-8876) /uL Florence # (Auto) 700 (0-900) /uL Eos # (Auto) 0 (0-450) /uL Baso # (Auto) 0 (0-100) /uL Sodium 141 (137-145) mmol/L Potassium 4.0 (3.4-5.1) mmol/L Chloride 100 (98-107) mmol/L Carbon Dioxide 31 (22-32) mmol/L BUN 9 (9-20) mg/dL Creatinine 0.80 (0.66-1.25) mg/dL Estimated GFR > 60.0 (>60) mL/min BUN/Creatinine Ratio 11.3 (6-22) Glucose 91 (70-100) mg/dL Calcium 9.4 (8.4-10.2) mg/dL Total Bilirubin 0.6 (0.2-1.3) mg/dL AST 31 (17-59) IU/L ALT 46 (21-72) IU/L Alkaline Phosphatase 61 (38-126) U/L Total Protein 7.8 (6.3-8.2) g/dL Albumin 4.6 (3.5-5.0) g/dL Globulin 3.2 (1.7-4.1) g/dL Albumin/Globulin Ratio 1.4 (1.0-2.8) Lipase 174 (23-300) U/L Point of care testing: Point of Care Testing Glucose POC 127 Imaging Data US - abdomen: Radiologist's impression: other dysuria. No fevers. CT scan - abdomen: Radiologist's impression: [place] [address] CT Scan Report Signed Patient: Gustavo Mack [facility]#: [id number] : 1980Acct:[id number] Age/Sex: 38 / MDate of Service: 02/13/19 Loc: ED Accession Number: [id number] Procedure: CT abdomen pelvis w con Ordering Provider: Anoop Arnett D.O. PROCEDURE: CT ABDOMEN PELVIS W CON INDICATIONS: right-sided abdominal pain eval for appy TECHNIQUE: After the administration of intravenous contrast, 5 mm thick sections acquired from the diaphragm to the symphysis. 5 mm coronal and sagittal reformats were acquired. For radiation dose reduction, the following was used: automated exposure control, adjustment of mA and/or kV according to patient size. COMPARISON: [facility], CT, CT ABDOMEN PELVIS W CON, 09/19/2018, 8:24. [facility], CT, ABDOMEN/PELVIS WITH CONTRAST, 01/23/2016, 22:39. FINDINGS: Image quality: Excellent. ABDOMEN: Lung bases: Lung bases are clear. Heart size is normal. Solid organs: Liver is normal in size and enhancement. Gallbladder appears normal, partially contracted. Biliary system is non dilated. Pancreas enhances normally. Spleen is normal in size and enhancement. No adrenal nodules. Kidneys demonstrate normal size and enhancement, without hydronephrosis. Peritoneum and bowel: Bowel loops demonstrate normal wall thickness and caliber . No free fluid or air. Nodes and vessels: No retroperitoneal or mesenteric adenopathy by size criteria. Aorta and inferior vena cava are normal in size. Miscellaneous: No ventral hernias. PELVIS: Genitourinary: Bladder wall thickness is normal. Miscellaneous: No inguinal hernias or adenopathy. A normal appendix is found at the right lower quadrant. There is, however, mild edema at the medial border of the ascending colon where a central fatty structure is ovoid is present, measuring approximately 3.8 cm transverse and 1.4 cm AP. Bones: No suspicious bony lesions. No vertebral body compression fractures. IMPRESSION: 1. Normal appendix found. 2. No urinary tract stone or obstruction is identified. 3. There is definite mild edema at the medial border of the ascending colon, without an associated inflamed diverticulum. Rather, a subtle ovoid fatty mass can be identified projecting from the ascending colon margin, and in this clinical circumstance of acute onset right lower quadrant pain and no evidence of focal diverticulitis the eddie gnosis is that of epiploic appendagitis. Dictated by: Kole Bhagat M.D. on 02/13/2019 at 20:52 Approved by: Kole Bhagat M.D. on 02/13/2019 at 20:58 [facility] Narrative Medical decision making narrative: While we are waiting for CT results to come back patient stated that he felt like his blood sugar was getting low. Accu- Chek showed level in the low 70s. Patient was getting a headache which he states he normally gets when his blood sugar was getting low. I did not want him to eat because were still waiting for the CT result so he was given D50 which improved his symptoms. CT scan shows no surgical issues. I did try to explain the patient's diagnosis with him. Informed him that there was no need for surgical consultation. No need for antibiotics. We did discuss the use of anti-inflammatories. He was instructed contact his primary doctor tomorrow for follow-up. He expressed understanding and agreement plan. Discharge Plan Departure Patient Disposition: Home Clinical Impression: Epiploic appendagitis Discharge Date/Time: 02/13/19 22:13 Interventions: ED Discharge Assessment Last Done: 02/13/19 22:08 Instructions: Acute Abdominal Pain Activity Restrictions/Additional Instructions: Take the nausea medication as directed. Tomorrow contact your primary doctor for follow-up. Recommend that you take 600 mg of ibuprofen every 6 hours as needed for the discomfort with food. You can take this for a very short period of time despite your diagnosis of diabetes. He had a bland diet. Return to the emergency department for any new or worsening symptoms Prescriptions: No Action propranolol 40 mg tablet 40 mg PO TID Qty: 270 RF: 3 ziprasidone HCl [Geodon] 60 mg capsule 60 mg PO BID Qty: 180 RF: 3 fluoxetine 40 mg capsule 80 mg PO DAILY Qty: 90 RF: 3 Humulin R U-500 (Conc) Kwikpen 500 unit/mL (3 mL) insulin pen 50 unit SUBCUT .COMPLEX Qty: 3 RF: 3 BD Pen Sims .ROUTE .MEDSUPPLY Qty: 100 RF: 3 trazodone 100 mg tablet 200 mg PO BEDTIME Qty: 180 RF: 3 losartan [Cozaar] 50 mg tablet 50 mg PO BID Qty: 180 RF: 0 blood sugar diagnostic strip .ROUTE .MEDSUPPLY Qty: 100 RF: 3 Basaglar KwikPen U-100 Insulin 100 unit/mL (3 mL) Insulin Pen 10 - 30 units subcut TID-QID RF: 0 prazosin [Minipress] 5 mg capsule 10 mg PO BEDTIME RF: 0 atorvastatin [Lipitor] 10 mg tablet 10 mg PO BEDTIME RF: 0 Lancet: Device 1 ea miscellaneous DIRECTED RF: 0 [Glucometer ] 1 ea miscellaneous DIRECTED RF: 0 Referrals: Gucci Matta MD [Primary Care Provider] - Stand Alone Forms: Work Release Note
--- NOTE | 2019-02-13 18:46 | DI.US.S_ITS ---
PROCEDURE: US ABDOMEN LIMITED INDICATIONS: RIGHT UPPER QUADRANT PAIN TECHNIQUE: Real-time focused scanning was performed of the abdomen, with image documentation. COMPARISON: None. FINDINGS: A there is increased echotexture throughout the liver consistent with moderate fatty infiltration. Large body habitus and bowel gas obscure clear visualization of portions of the abdomen. The gallbladder is moderately well-seen and appears normal. Bile ducts do not appear dilated. Pancreas visualized appears normal. IMPRESSION: Limited abdominal ultrasound targeted to the source of possible right upper quadrant pain, finding no etiology. Limited study as discussed, depending on the clinical status followup by CT scanning may become necessary. Dictated by: Kole Bhagat M.D. on 02/13/2019 at 19:42 Approved by: Kole Bhagat M.D. on 02/13/2019 at 19:43
[2019-02-13] MEDS: PANTOPRAZOLE 40 MG VIAL IV (18:52)
[2019-02-13] MEDS: SODIUM CHLORIDE 0.9% 1,000 ML 1000 ML IV (18:52)
[2019-02-13] MEDS: MAG HYDROX/ALUMINUM/SIMETH SUS 20 ML, LIDOCAINE VISCOUS 2% 15 ML PO (18:53)
[2019-02-13 19:01] LABS: Add Manual Diff / Slide Review NO; Alanine Aminotransferase 46 IU/L (21-72); Albumin 4.6 g/dL (3.5-5.0); Albumin Globulin Ratio 1.4 (1.0-2.8); Alkaline Phosphatase 61 U/L (38-126); Aspartate Aminotransferase 31 IU/L (17-59); BUN Creatinine Ratio 11.3 (6-22); Basophils Absolute Auto 0 /uL (0-100); Basophils Percent Auto 0.3 % (0-2); Bilirubin Total 0.6 mg/dL (0.2-1.3); Blood Urea Nitrogen 9 mg/dL (9-20); Calcium 9.4 mg/dL (8.4-10.2); Carbon Dioxide 31 mmol/L (22-32); Chloride 100 mmol/L (98-107); Eosinophils Absolute Auto 0 /uL (0-450); Eosinophils Percent Auto 0.5 % (2-4); Estimated Glomerular Filt Rate > 60.0 mL/min (>60); Globulin 3.2 g/dL (1.7-4.1); Glucose 91 mg/dL (70-100); HEMOLYSIS < 15 (0-50); Hematocrit 42.3 % (41-53); Hemoglobin 14.5 g/dL (13.5-17.5); Lipase 174 U/L (23-300); Lymphocytes Absolute Auto 2300 /uL (1100-4500); Lymphocytes Percent Auto 29.9 % (25-40); Mean Corpuscular HGB Conc 34.3 % (30-36); Mean Corpuscular Hemoglobin 31.4 PG (26-34); Mean Corpuscular Volume 91.7 fL (80-100); Monocytes Absolute Auto 700 /uL (0-900); Monocytes Percent Auto 9.8 % (3-14); Neutrophils Absolute Auto 4500 /uL (1500-7000); Neutrophils Percent Auto 59.5 % (50-75); Platelet Count 171 X10^3/uL (150-400); Red Blood Cell Count 4.61 X10^6/uL (4.5-5.9); Red Cell Distribution Width 14.3 % (11.6-14.8); Sodium 141 mmol/L (137-145); Total Protein 7.8 g/dL (6.3-8.2); White Blood Cell Count 7.6 X10^3/uL (4.5-11.0)
--- NOTE | 2019-02-13 19:40 | DI.CT.S_ITS ---
PROCEDURE: CT ABDOMEN PELVIS W CON INDICATIONS: right-sided abdominal pain eval for appy TECHNIQUE: After the administration of intravenous contrast, 5 mm thick sections acquired from the diaphragm to the symphysis. 5 mm coronal and sagittal reformats were acquired. For radiation dose reduction, the following was used: automated exposure control, adjustment of mA and/or kV according to patient size. COMPARISON: [facility], CT, CT ABDOMEN PELVIS W CON, 09/19/2018, 8:24. [facility], CT, ABDOMEN/PELVIS WITH CONTRAST, 01/23/2016, 22:39. FINDINGS: Image quality: Excellent. ABDOMEN: Lung bases: Lung bases are clear. Heart size is normal. Solid organs: Liver is normal in size and enhancement. Gallbladder appears normal, partially contracted. Biliary system is non dilated. Pancreas enhances normally. Spleen is normal in size and enhancement. No adrenal nodules. Kidneys demonstrate normal size and enhancement, without hydronephrosis. Peritoneum and bowel: Bowel loops demonstrate normal wall thickness and caliber. No free fluid or air. Nodes and vessels: No retroperitoneal or mesenteric adenopathy by size criteria. Aorta and inferior vena cava are normal in size. Miscellaneous: No ventral hernias. PELVIS: Genitourinary: Bladder wall thickness is normal. Miscellaneous: No inguinal hernias or adenopathy. A normal appendix is found at the right lower quadrant. There is, however, mild edema at the medial border of the ascending colon where a central fatty structure is ovoid is present, measuring approximately 3.8 cm transverse and 1.4 cm AP. Bones: No suspicious bony lesions. No vertebral body compression fractures. IMPRESSION: 1. Normal appendix found. 2. No urinary tract stone or obstruction is identified. 3. There is definite mild edema at the medial border of the ascending colon, without an associated inflamed diverticulum. Rather, a subtle ovoid fatty mass can be identified projecting from the ascending colon margin, and in this clinical circumstance of acute onset right lower quadrant pain and no evidence of focal diverticulitis the diagnosis is that of epiploic appendagitis. Dictated by: Kole Bhagat M.D. on 02/13/2019 at 20:52 Approved by: Kole Bhagat M.D. on 02/13/2019 at 20:58
[2019-02-13] MEDS: DEXTROSE 50 % IN WATER 25 GM/50 ML SYRINGE IV (20:43)
[2019-02-13 20:45] VITALS: BP 152/67; PULSE 71; RESP 19; O2SAT 97
[2019-02-13 21:00] VITALS: BP 130/82; PULSE 75; RESP 17; O2SAT 97
[2019-02-13] MEDS: ONDANSETRON 4 MG/2 ML INJ IV (21:37)
[2019-02-13 22:00] VITALS: BP 130/82
[2019-02-13 22:08] VITALS: BP 116/89; PULSE 69; RESP 16; O2SAT 99
[2019-02-13] MEDS: ONDANSETRON 4 MG ODT PREPACK 1 BOTTLE MISC (22:12)
== END 2019-02-13 22:13 | disposition home or self-care (01) ==
PROVIDERS: Emergency Provider Emergency Medicine; PCP Internal Medicine
DX: K52.9 Noninfective gastroenteritis and colitis, unspecified (principal)
CPT/HCPCS: 36591; 74177; 76705; 80053; 82962; 83690; 85025; 96361; 96374; 96375; 99283; 99284; C9113; J2405; Q9967

== ENCOUNTER 2019-03-30 16:14 | Emergency (ER) | payer OTHER, SELFPAY ==
[2018-09-21 09:16] VITALS: BMI 51.2
--- NOTE | 2019-03-30 16:24 | ED_ITS ---
HPI - Weakness General Chief complaint: Weakness Stated complaint: feels exhausted Time Seen by Provider: 03/30/19 16:24 Source: patient Mode of arrival: Ambulatory Limitations: no limitations History of Present Illness HPI Narrative: 38-year-old male nonsmoker with history of morbid obesity, diabetes, hypertension and hyperlipidemia presents with a chief complaint of exhaustion. He states he has been working too much and they keep asking him to work more and will not listen to him when he states he is too tired. He states he has put in his 2 weeks notice and needs a doctor's note for the remaining time because he is too tired to work. He denies dizziness or lightheadedness. He has had no fever or chills. He denies headaches, blurred vision or trouble with speech. He denies any chest pain, cough or shortness of breath. He has had no abdominal pain, nausea vomiting or diarrhea. He denies any change in diet or medications. MD Complaint: generalized weakness and lack of energy Onset (ago): week(s) Duration: constant Location: generalized Migration: none Relieving factors: none Exacerbating factors: none Associated symptoms: denies other symptoms Related Data Home Medications Medication Instructions Recorded Confirmed Lancet: Device 1 ea MISCELLANEOUS DIRECTED 09/19/18 02/15/19 [Glucometer ] 1 ea MISCELLANEOUS DIRECTED 09/19/18 02/15/19 Previous Rx's Medication Instructions Recorded fluoxetine 40 mg capsule 80 mg PO DAILY #90 cap 10/08/18 insulin regular hum U-500 conc 500 50 unit SUBCUT .COMPLEX #3 ml 11/07/18 unit/mL(3 mL) subcut pen BD Pen [place] #100 each 11/08/18 trazodone 100 mg tablet 200 mg PO BEDTIME #180 tab 12/04/18 losartan 50 mg tablet 50 mg PO BID #180 tab 01/14/19 blood sugar diagnostic #100 each 01/21/19 atorvastatin 10 mg tablet 10 mg PO BEDTIME #90 tab 02/19/19 prazosin 5 mg capsule 10 mg PO BEDTIME #180 cap 02/19/19 propranolol 40 mg tablet 40 mg PO TID #270 tab 02/19/19 ziprasidone HCl 60 mg capsule 60 mg PO BID #180 cap 02/19/19 insulin glargine 100 unit/mL (3 See Rx Instructions SUBCUT TID-QID 03/05/19 mL) subcutaneous pen #15 ml Allergies Allergy/AdvReac Type Severity Reaction Status Date / Time No Known Drug Allergies Allergy Verified 02/15/19 10:43 Review of Systems Constitutional Constitutional: Denies chills, Reports daytime sleepiness, Denies fatigue, Denies fever(s), Denies frequent falls, Denies lethargy and Denies weakness Eyes Eyes: Denies change in vision, Denies eye discharge, Denies irritation and Denies loss of vision ENT Ears, Nose, Mouth, and Throat: Denies change in voice, Denies dizziness, Denies neck pain, Denies sore throat and Denies throat swelling Cardiovascular Cardiovascular: Denies chest pain, Denies irregular heart rhythm, Denies lightheadedness, Denies palpitations, Denies dyspnea, Denies dyspnea on exertion and Denies orthopnea Respiratory Respiratory: Denies cough, Denies dyspnea, Denies dyspnea on exertion and Denies wheezing Gastrointestinal Gastrointestinal: Denies abdominal pain, Denies change in bowel habits, Denies diarrhea, Denies nausea and Denies vomiting Genitourinary Genitourinary: Denies hematuria, Denies flank pain, Denies urinary incontinence and Denies urinary urgency Musculoskeletal Musculoskeletal: Denies back pain, Denies muscle weakness, Denies neck pain, Denies numbness and Denies tingling Integumentary/Breasts Skin/Breast: Denies pruritus, Denies erythema, Denies rash and Denies wounds Neurologic Neurologic: Denies behavioral changes, Denies confusion, Denies dizziness, Denies frequent falls, Denies loss of vision, Denies numbness, Denies tingling and Denies weakness Psychiatric Psychiatric: Denies anxiety, Denies behavioral changes, Denies confusion, Denies depression, Denies homicidal ideation and Denies suicidal ideation Endocrine Endocrine: Denies fatigue, Denies flushing and Denies palpitations Hematologic/Lymphatic Hematologic/Lymphatic: Denies easy bruising Allergic/Immunologic Allergic/Immunologic: Denies urticaria, Denies throat swelling and Denies wheezing [facility] Medical History Anxiety (Resolved) Bipolar affective disorder (Chronic) Chronic back pain (Inactive) Colitis (Suspected) Depression (Resolved) Diabetes, type 1.5, controlled, managed as type 2 (Chronic) Erectile dysfunction (Chronic) Hyperlipidemia (Chronic) Hypertension (Chronic) Low testosterone in male (Chronic) Mixed hyperlipidemia (Chronic) Morbid obesity with BMI of 50.0-59.9, adult (Chronic) PTSD (post-traumatic stress disorder) (Chronic) Schizophrenia (Suspected) Type II diabetes mellitus, well controlled (Chronic) Vitamin D deficiency (Chronic) Surgical History Hx of discectomy (Resolved 2009) Hx of surgical procedure (Resolved 2005) Family History Father Hyperlipidemia Mother Diabetes mellitus Hypertension Hyperlipidemia Grandfather Cancer Grandmother Cancer Social History household members: family Smoking Status: Never smoker second hand exposure: No alcohol intake: never substance use type: does not use additional social history: No current social issues Family History Father Hyperlipidemia Mother Diabetes mellitus Hypertension Hyperlipidemia Grandfather Cancer Grandmother Cancer Social History household members: family Smoking Status: Never smoker second hand exposure: No alcohol intake: never substance use type: does not use additional social history: No current social issues Exam Narrative Exam Narrative: GENERAL: [38] year old patient appears stated age. Morbidly obese, no obvious or significant distress HEAD: Atraumatic. Normocephalic. EYES: Pupils equal round and reactive. Extraocular motions intact. No scleral i cterus. No injection or drainage. ENT: Nose without bleeding, purulent drainage. Throat without erythema, tonsillar hypertrophy or exudate. Airway patent. NECK: Trachea midline. Non tender CARDIOVASCULAR: Regular rate and rhythm without murmurs, gallops, or rubs. RESPIRATORY: Clear to auscultation. Breath sounds equal bilaterally. No wheezes, rales, or rhonchi. GASTROINTESTINAL: Abdomen soft, non-tender, nondistended. EXTREMITIES: No edema or joint tenderness. BACK: Nontender without deformity or crepitance. No flank tenderness. NEURO: AOx3. SKIN: No rash or erythema of visible areas Initial Vital Signs Initial Vital Signs: Vital Signs Temperature 98.8 F 03/30/19 16:29 Pulse Rate 79 09/21/19 16:29 Respiratory Rate 15 03/30/19 16:29 Blood Pressure 143/86 H 03/30/19 16:29 Pulse Oximetry 99 03/30/19 16:29 Course Orders Ordered: ED Orders 03/30/19 16:30 Basic Metabolic Panel Stat Complete Blood Count AUTO DIFF Stat Troponin & CK Cardiac Panel Stat MDM - Weakness Lab Data Result diagrams: 03/30/19 16:55 03/30/19 16:55 Labs: Lab Results 03/30/19 03/30/19 Range/Units 16:55 16:55 WBC 6.4 (4.5-11.0) X10^3/uL RBC 4.27 L (4.5-5.9) X10^6/uL Hgb 14.0 (13.5-17.5) g/dL Hct 38.9 L (41-53) % MCV 91.1 (80-100) fL MCH 32.9 (26-34) PG MCHC 36.1 H (30-36) % RDW 14.4 (11.6-14.8) % Plt Count 170 (150-400) X10^3/uL Neut % (Auto) 50.9 (50-75) % Lymph % (Auto) 41.0 H (25-40) % [place] % (Auto) 7.4 (3-14) % Eos % (Auto) 0.5 L (2-4) % Baso % (Auto) 0.2 (0-2) % Neut # (Auto) 3300 (9461-0863) /uL Lymph # (Auto) 2600 (0129-4024) /uL [place] # (Auto) 500 (0-900) /uL Eos # (Auto) 0 (0-450) /uL Baso # (Auto) 0 (0-100) /uL Sodium 138 (137-145) mmol/L Potassium 3.8 (3.4-5.1) mmol/L Chloride 101 (98-107) mmol/L Carbon Dioxide 28 (22-32) mmol/L BUN 11 (9-20) mg/dL Creatinine 0.70 (0.66-1.25) mg/dL Estimated GFR > 60.0 (>60) mL/min BUN/Creatinine Ratio 15.7 (6-22) Glucose 164 H (70-100) mg/dL Calcium 9.0 (8.4-10.2) mg/dL Total Creatine Kinase 223 H (55-170) U/L CK-MB (CK-2) 1.77 (<2.37) ng/mL CK-MB (CK-2) Rel Index 0.8 L (1.5-5.0) % Troponin I < 0.012 (0.01-0.034) ng/mL Discharge Plan Departure Patient Disposition: Home Clinical Impression: Fatigue Qualifiers: Fatigue type: unspecified Qualified Code(s): R53.83 - Other fatigue Discharge Date/Time: 03/30/19 18:25 Instructions: DI for Fatigue Activity Restrictions/Additional Instructions: *You have been diagnosed with [ fatigue, perhaps due to increased work load. Labs are very reassuring. ] *What to do: *Continue to take medications as directed *Follow up with your primary care provider in 2-3 days, call for an appointment. Let them know you were seen in the Emergency Department and that we ask that you be seen in follow up *Return to ER if you should have any new, worsening or concerning symptoms Prescriptions: No Action fluoxetine 40 mg capsule 80 mg PO DAILY Qty: 90 RF: 3 Humulin R U-500 (Conc) Kwikpen 500 unit/mL (3 mL) insulin pen 50 unit SUBCUT .COMPLEX Qty: 3 RF: 3 (DME) BD Pen [place] 0 .Route .MEDSUPPLY Qty: 100 RF: 3 trazodone 100 mg tablet 200 mg PO BEDTIME Qty: 180 RF: 3 losartan [Cozaar] 50 mg tablet 50 mg PO BID Qty: 180 RF: 0 (DME) blood sugar diagnostic strip See Dose Instructions .ROUTE .MEDSUPPLY Qty: 100 RF: 3 propranolol 40 mg tablet 40 mg PO TID Qty: 270 RF: 3 ziprasidone HCl [Geodon] 60 mg capsule 60 mg PO BID Qty: 180 RF: 3 prazosin [Minipress] 5 mg capsule 10 mg PO BEDTIME Qty: 180 RF: 3 atorvastatin [Lipitor] 10 mg tablet 10 mg PO BEDTIME Qty: 90 RF: 3 Basaglar KwikPen U-100 Insulin 100 unit/mL (3 mL) insulin pen See Rx Instructions subcut TID-QID Qty: 15 RF: 3 Lancet: Device 1 ea miscellaneous DIRECTED RF: 0 [Glucometer ] 1 ea miscellaneous DIRECTED RF: 0 Referrals: Gucci Matta MD [Primary Care Provider] - Stand Alone Forms: Work Release Note
[2019-03-30 16:29] VITALS: BP 143/86; PULSE 79; RESP 15; TEMP 37.1; O2SAT 99
[2019-03-30 17:28] LABS: Add Manual Diff / Slide Review NO; Basophils Absolute Auto 0 /uL (0-100); Basophils Percent Auto 0.2 % (0-2); Eosinophils Absolute Auto 0 /uL (0-450); Eosinophils Percent Auto 0.5 % (2-4); Hematocrit 38.9 % (41-53); Lymphocytes Absolute Auto 2600 /uL (1100-4500); Mean Corpuscular HGB Conc 36.1 % (30-36); Mean Corpuscular Hemoglobin 32.9 PG (26-34); Mean Corpuscular Volume 91.1 fL (80-100); Monocytes Absolute Auto 500 /uL (0-900); Monocytes Percent Auto 7.4 % (3-14); Neutrophils Absolute Auto 3300 /uL (1500-7000); Neutrophils Percent Auto 50.9 % (50-75); Platelet Count 170 X10^3/uL (150-400); Red Blood Cell Count 4.27 X10^6/uL (4.5-5.9); Red Cell Distribution Width 14.4 % (11.6-14.8); White Blood Cell Count 6.4 X10^3/uL (4.5-11.0)
[2019-03-30 17:56] LABS: BUN Creatinine Ratio 15.7 (6-22); Blood Urea Nitrogen 11 mg/dL (9-20); Carbon Dioxide 28 mmol/L (22-32); Chloride 101 mmol/L (98-107); Creatine Kinase 223 U/L (55-170); Estimated Glomerular Filt Rate > 60.0 mL/min (>60); Glucose 164 mg/dL (70-100); HEMOLYSIS 15 (0-50); Potassium 3.8 mmol/L (3.4-5.1); Sodium 138 mmol/L (137-145)
[2019-03-30 18:06] LABS: Troponin I < 0.012 ng/mL (0.01-0.034)
[2019-03-30 18:10] LABS: CKMB % Relative Index 0.8 % (1.5-5.0); Creatine Kinase MB 1.77 ng/mL (<2.37)
== END 2019-03-30 18:25 | disposition home or self-care (01) ==
PROVIDERS: Emergency Provider Emergency Medicine; PCP Internal Medicine
DX: R53.83 Other fatigue (principal)
CPT/HCPCS: 36415; 80048; 82550; 82553; 84484; 85025; 99283

== ENCOUNTER 2019-05-02 19:51 | Emergency (ER) | payer OTHER, SELFPAY ==
[2018-09-21 09:16] VITALS: BMI 51.2
[2019-05-02 19:54] VITALS: BP 140/66; PULSE 65; RESP 16; TEMP 36.1; O2SAT 98; BMI 50.8
--- NOTE | 2019-05-02 19:57 | DI.RAD.S_ITS ---
PROCEDURE: XR ANKLE LT MIN 3V INDICATIONS: rolled ankle TECHNIQUE: 3 views of the ankle were acquired. COMPARISON: None. FINDINGS: Bones: Moderate lateral malleolar soft tissue swelling. No underlying fracture or dislocation. Ankle mortise is normally aligned. No suspicious bony lesions. Retrocalcaneal spurring. Soft tissues: No tibiotalar joint effusion. Achilles tendon appears normal. IMPRESSION: Lateral malleolar soft tissue edema without associated fracture or dislocation. If there are persistent symptoms or clinical suspicion for pathology, then repeat radiographs or advanced imaging (CT, MRI or bone scan) should be considered for further evaluation. Dictated by: Arsen Rosenbaum M.D. on 05/02/2019 at 21:24 Approved by: Arsen Rosenbaum M.D. on 05/02/2019 at 21:25
--- NOTE | 2019-05-02 20:25 | ED.LOWEXIN ---
HPI - Extremity Injury (Lower) General Chief Complaint: Extremity Injury, Lower Stated Complaint: LEFT ANKLE INJURY Time Seen by Provider: 05/02/19 20:10 Source: patient Mode of arrival: Ambulatory Limitations: no limitations History of Present Illness HPI Narrative: Patient is a 38-year-old male who presents with left ankle pain. He says he was at work when he rolled his left ankle. He works down [employer] this initially happened around 10:00 a.m.. He says he feels like he tweaked his whole all leg including his knee. He was ambulatory after the event. He denies any numbness or tingling. At today's gone on his had increasing pain MD complaint: ankle injury Related Data Home Medications Medication Instructions Recorded Confirmed Lancet: Device 1 ea MISCELLANEOUS DIRECTED 09/19/18 02/15/19 [Glucometer ] 1 ea MISCELLANEOUS DIRECTED 09/19/18 02/15/19 Previous Rx's Medication Instructions Recorded fluoxetine 40 mg capsule 80 mg PO DAILY #90 cap 10/08/18 insulin regular hum U-500 conc 50 unit SUBCUT .COMPLEX #3 ml 11/07/18 BD Pen [place] #100 each 11/08/18 trazodone 100 mg tablet 200 mg PO BEDTIME #180 tab 12/04/18 losartan 50 mg tablet 50 mg PO BID #180 tab 01/14/19 blood sugar diagnostic #100 each 01/21/19 atorvastatin 10 mg tablet 10 mg PO BEDTIME #90 tab 02/19/19 prazosin 5 mg capsule 10 mg PO BEDTIME #180 cap 02/19/19 propranolol 40 mg tablet 40 mg PO TID #270 tab 02/19/19 ziprasidone HCl 60 mg capsule 60 mg PO BID #180 cap 02/19/19 insulin glargine 100 unit/mL (3 See Rx Instructions SUBCUT TID-QID 03/05/19 mL) subcutaneous pen #15 ml Allergies Allergy/AdvReac Type Severity Reaction Status Date / Time No Known Drug Allergies Allergy Verified 05/02/19 19:54 Review of Systems Review of Systems Narrative: GENERAL: Denies chills,fever HEENT: Denies throat pain RESPIRATORY: Denies dyspnea, cough, wheezing CARDIOVASCULAR: Denies chest pain, palpitations GASTROINTESTINAL: Denies nausea, vomiting MUSCULOSKELETAL: See HPI SKIN: No rash, no laceration, no pruritus NEUROLOGIC: Denies weakness, dizziness, headache, numbness 8 point review of systems is negative except for those stated above and HPI Patient History Medical History Anxiety (Resolved) Bipolar affective disorder (Chronic) Chronic back pain (Inactive) Colitis (Suspected) Depression (Resolved) Diabetes, type 1.5, controlled, managed as type 2 (Chronic) Erectile dysfunction (Chronic) Hyperlipidemia (Chronic) Hypertension (Chronic) Low testosterone in male (Chronic) Mixed hyperlipidemia (Chronic) Morbid obesity with BMI of 50.0-59.9, adult (Chronic) PTSD (post-traumatic stress disorder) (Chronic) Schizophrenia (Suspected) Type II diabetes mellitus, well controlled (Chronic) Vitamin D deficiency (Chronic) Surgical History Hx of discectomy (Resolved 2009) Hx of surgical procedure (Resolved 2005) Family History Father Hyperlipidemia Mother Diabetes mellitus Hypertension Hyperlipidemia Grandfather Cancer Grandmother Cancer Social History household members: family Smoking Status: Never smoker second hand exposure: No alcohol intake: never substance use type: does not use additional social history: No current social issues alcohol intake frequency: holidays/special occasions only Substance Use Type: does not use Exam Initial Vital Signs Initial Vital Signs: Vital Signs Temperature 97.0 F L 05/02/19 19:54 Pulse Rate 65 05/02/19 19:54 Respiratory Rate 16 05/02/19 19:54 Blood Pressure 140/66 05/02/19 19:54 Pulse Oximetry 98 05/02/19 19:54 GENERAL: Overweight male no acute distress CARDIOVASCULAR: peripheral pulses in tact, cap refill <2 sec RESPIRATORY: No respiratory distress, speaks in full sentences without difficulty EXTREMITIES: Normal range of motion, no clubbing or edema. Neurovascularly intact Minimal left lateral ankle swelling, no erythema no contusion distal pedal pulse is intact. Left knee is stable NEUROLOGICAL: Cranial nerves II through XII grossly intact. Normal gait and speech. SKIN: Warm, dry, no petechiae, no rashes or lesions. Course Orders Ordered: ED Orders 05/02/19 19:57 XR ankle LT min 3V Stat Vital Signs Vital signs: Vital Signs - 8 hr 05/02/19 19:54 Temperature 97.0 F L Pulse Rate 65 Respiratory Rate 16 Blood Pressure 140/66 Pulse Oximetry 98 MDM - Extremity Injury (Lower) Imaging Data left ankle: Radiologist's impression: PROCEDURE: XR ANKLE LT MIN 3V INDICATIONS: rolled ankle TECHNIQUE: 3 views of the ankle were acquired. COMPARISON: None. FINDINGS: Bones: Moderate lateral malleolar soft tissue swelling. No underlying fracture or dislocation. Ankle mortise is normally aligned. No suspicious bony lesions. Retrocalcaneal spurring. Soft tissues: No tibiotalar joint effusion. Achilles tendon appears normal. IMPRESSION: Lateral malleolar soft tissue edema without associated fracture or dislocation. If there are persistent symptoms or clinical suspicion for pathology, then repeat radiographs or advanced imaging (CT, MRI or bone scan) should be considered for further evaluation. Dictated by: Arsen Rosenbaum M.D. on 05/02/2019 at 21:24 Discharge Plan Departure Patient Disposition: Home Clinical Impression: Left ankle sprain Qualifiers: Encounter type: initial encounter Involved ligament of ankle: other ligament Qualified Code(s): S93.492A - Sprain of other ligament of left ankle, initial encounter Discharge Date/Time: 05/02/19 21:40 Instructions: Ankle Sprain Activity Restrictions/Additional Instructions: *You have been diagnosed with left ankle sprain *What to do: Increase activity tolerated may ambulate bear as tolerated *Continue to take medications as directed Tylenol or Motrin as indicated if needed for pain *Follow up with your primary care provider in 2-3 days *Return to ER if you should have increasing pain or any new, worsening or concerning symptoms Prescriptions: No Action fluoxetine 40 mg capsule 80 mg PO DAILY Qty: 90 RF: 3 Humulin R U-500 (Conc) Kwikpen 500 unit/mL (3 mL) insulin pen 50 unit SUBCUT .COMPLEX Qty: 3 RF: 3 (DME) BD Pen [place] 0 .Route .MEDSUPPLY Qty: 100 RF: 3 trazodone 100 mg tablet 200 mg PO BEDTIME Qty: 180 RF: 3 losartan [Cozaar] 50 mg tablet 50 mg PO BID Qty: 180 RF: 0 (DME) blood sugar diagnostic strip See Dose Instructions .ROUTE .MEDSUPPLY Qty: 100 RF: 3 propranolol 40 mg tablet 40 mg PO TID Qty: 270 RF: 3 ziprasidone HCl [Geodon] 60 mg capsule 60 mg PO BID Qty: 180 RF: 3 prazosin [Minipress] 5 mg capsule 10 mg PO BEDTIME Qty: 180 RF: 3 atorvastatin [Lipitor] 10 mg tablet 10 mg PO BEDTIME Qty: 90 RF: 3 Basaglar KwikPen U-100 Insulin 100 unit/mL (3 mL) insulin pen See Rx Instructions subcut TID-QID Qty: 15 RF: 3 Lancet: Device 1 ea miscellaneous DIRECTED RF: 0 [Glucometer ] 1 ea miscellaneous DIRECTED RF: 0 Referrals: Gucci Matta MD [Primary Care Provider] - Stand Alone Forms: Work Release Note
== END 2019-05-02 21:40 | disposition home or self-care (01) ==
PROVIDERS: Emergency Provider Emergency Medicine; PCP Internal Medicine
DX: S93.492A Sprain of other ligament of left ankle, initial encounter (principal); Y99.0 Civilian activity done for income or pay
CPT/HCPCS: 73610; 99282; 99283

== ENCOUNTER 2019-05-12 14:59 | Emergency (ER) | payer OTHER, SELFPAY ==
[2018-09-21 09:16] VITALS: BMI 51.2
[2019-05-12 15:02] VITALS: BP 152/83; PULSE 70; RESP 22; TEMP 35.9; O2SAT 96
--- NOTE | 2019-05-12 15:49 | ED.LOWEXIN ---
HPI - Extremity Injury (Lower) <Savanna Eckert, DRY CLEANING TEACHER-BC - Last Filed: 05/12/19 15:58> General Chief Complaint: Extremity Injury, Lower Stated Complaint: left ankle sprain Time Seen by Provider: 05/12/19 15:18 Source: patient Mode of arrival: Ambulatory Limitations: no limitations History of Present Illness HPI Narrative: The patient is a morbidly obese male nonsmoker with history of diabetes who presents for chief complaint of continued left ankle pain. He was seen at this facility on 05/02, diagnosed with a left ankle sprain and had negative x-rays at this time. He recently resumed work. He states that he ambulated up 40 flights of stairs today and has more ankle pain. He states the ankle swollen. He has taken Motrin for the pain, but not very often has he ?does not believe him pain medication.He presents without having followed up with primary care provider. He states that he would like an MRI to evaluate his ankle. He presents to the emergency department requesting the MRI. Related Data Home Medications Medication Instructions Recorded Confirmed Lancet: Device 1 ea MISCELLANEOUS DIRECTED 09/19/18 02/15/19 [Glucometer ] 1 ea MISCELLANEOUS DIRECTED 09/19/18 02/15/19 Previous Rx's Medication Instructions Recorded fluoxetine 40 mg capsule 80 mg PO DAILY #90 cap 10/08/18 insulin regular hum U-500 conc 50 unit SUBCUT .COMPLEX #3 ml 11/07/18 BD Pen [place] #100 each 11/08/18 trazodone 100 mg tablet 200 mg PO BEDTIME #180 tab 12/04/18 losartan 50 mg tablet 50 mg PO BID #180 tab 01/14/19 blood sugar diagnostic #100 each 01/21/19 atorvastatin 10 mg tablet 10 mg PO BEDTIME #90 tab 02/19/19 prazosin 5 mg capsule 10 mg PO BEDTIME #180 cap 02/19/19 propranolol 40 mg tablet 40 mg PO TID #270 tab 02/19/19 ziprasidone HCl 60 mg capsule 60 mg PO BID #180 cap 02/19/19 insulin glargine 100 unit/mL (3 See Rx Instructions SUBCUT TID-QID 03/05/19 mL) subcutaneous pen #15 ml Allergies Allergy/AdvReac Type Severity Reaction Status Date / Time No Known Drug Allergies Allergy Verified 05/02/19 19:54 Review of Systems <RHIANNON Cordova - Last Filed: 05/12/19 15:58> Review of Systems Narrative: GENERAL: Denies chills, fatigue, malaise, fever, sweats. HEENT: Denies sinus pain, ear pain, sore throat, difficulty swallowing, dizziness. RESPIRATORY: Denies dyspnea, cough, wheezing, hemoptysis, sputum. CARDIOVASCULAR: Denies chest pain, palpitations, orthopnea, edema, GASTROINTESTINAL: Denies nausea, vomiting, abdominal pain, diarrhea, constipation, melena. : Denies dysuria, frequency, incontinence, hematuria, urinary retention. MUSCULOSKELETAL: See HPI SKIN: Denies rash, skin lesions, or other NEUROLOGIC: Denies weakness, headache, numbness, change in speech, confusion, seizures, incoordination. PSYCHIATRIC: No concerning psychosocial issues. 12 point review of systems is negative except for those stated above Patient History <RHIANNON Cordova - Last Filed: 05/12/19 15:58> Medical History Anxiety (Resolved) Bipolar affective disorder (Chronic) Chronic back pain (Inactive) Colitis (Suspected) Depression (Resolved) Diabetes, type 1.5, controlled, managed as type 2 (Chronic) Erectile dysfunction (Chronic) Hyperlipidemia (Chronic) Hypertension (Chronic) Low testosterone in male (Chronic) Mixed hyperlipidemia (Chronic) Morbid obesity with BMI of 50.0-59.9, adult (Chronic) PTSD (post-traumatic stress disorder) (Chronic) Schizophrenia (Suspected) Type II diabetes mellitus, well controlled (Chronic) Vitamin D deficiency (Chronic) Surgical History Hx of discectomy (Resolved 2009) Hx of surgical procedure (Resolved 2005) Family History Father Hyperlipidemia Mother Diabetes mellitus Hypertension Hyperlipidemia Grandfather Cancer Grandmother Cancer Social History household members: family Smoking Status: Never smoker second hand exposure: No alcohol intake: never substance use type: does not use additional social history: No current social issues alcohol intake frequency: holidays/special occasions only Substance Use Type: does not use Exam <RHIANNON Cordova - Last Filed: 05/12/19 15:58> Narrative Exam Narrative: GENERAL: Morbidly obese male in no acute distress HEAD: Atraumatic. Normocephalic. No temporal or scalp tenderness. EYES: Pupils equal round and reactive. Extraocular motions intact. No scleral icterus. No injection or drainage. ENT: Nose without bleeding, purulent drainage or septal hematoma. Throat without erythema, tonsillar hypertrophy or exudate. Uvula midline. Airway patent. NECK: Trachea midline. No JVD or lymphadenopathy. Supple, nontender, no meningeal signs. CARDIOVASCULAR: Regular rate and rhythm RESPIRATORY: No cough. No increased respiratory effort. No accessory muscle use. EXTREMITIES: General pain to palpation left ankle. Able to flex and extend left foot. Positive pedal pulses. Capillary refill less than 2 seconds. BACK: Nontender without deformity or crepitance. No flank tenderness. NEURO: AOx3. SKIN: No rash or erythema on visible skin. Slight ecchymosis noted on lateral aspect of left ankle. Initial Vital Signs Initial Vital Signs: Vital Signs Temperature 96.7 F L 05/12/19 15:02 Pulse Rate 70 05/12/19 15:02 Respiratory Rate 22 05/12/19 15:02 Blood Pressure 152/83 H 05/12/19 15:02 Pulse Oximetry 96 05/12/19 15:02 <Caitlyn West MD - Last Filed: 05/12/19 17:05> Initial Vital Signs Initial Vital Signs: Vital Signs Temperature 96.7 F L 05/12/19 15:02 Pulse Rate 70 05/12/19 15:02 Respiratory Rate 22 05/12/19 15:02 Blood Pressure 152/83 H 05/12/19 15:02 Pulse Oximetry 96 05/12/19 15:02 Course <RHIANNON Cordova - Last Filed: 05/12/19 15:58> Vital Signs Vital signs: Vital Signs - 8 hr 05/12/19 15:02 Temperature 96.7 F L Pulse Rate 70 Respiratory Rate 22 Blood Pressure 152/83 H Pulse Oximetry 96 <Caitlyn West MD - Last Filed: 05/12/19 17:05> Vital Signs Vital signs: Vital Signs - 8 hr 05/12/19 15:02 Temperature 96.7 F L Pulse Rate 70 Respiratory Rate 22 Blood Pressure 152/83 H Pulse Oximetry 96 MDM - Extremity Injury (Lower) <HENRY Cordova- - Last Filed: 05/12/19 15:58> [facility] Narrative Medical decision making narrative: The patient is a 38-year-old male who is seen at this facility for left ankle sprain with negative x-rays on the of this month. He comes back to the emergency department requesting an MRI as he has had increased pain since returning back to work. He has a very physical job, states that he walked 40 flights of stairs today, so I expect that increased activity has caused increased pain for his ankle. I discussed at length rest ice compression elevation as well as continued [id number] pain medications as needed and able. I strongly suggested that he follow up with primary care provider as well as a [facility] provider I did give him a work note for few more days off work. Patient has no questions or concerns upon discharge and states understanding of return precautions as well as follow-up care. Discharge Plan Departure Patient Disposition: Home Clinical Impression: Left ankle sprain Qualifiers: Encounter type: subsequent encounter Involved ligament of ankle: unspecified ligament Qualified Code(s): S93.402D - Sprain of unspecified ligament of left ankle, subsequent encounter Discharge Date/Time: 05/12/19 16:03 Instructions: DI for Ankle Sprain, How To Perform RICE (Rest, Ice, Compress, Elevate), DI for Ankle Pain Activity Restrictions/Additional Instructions: Please follow up with primary care provider. You can also contact [facility] to recommend a follow-up provider. As I discussed, we can not order an MRI for your ankle in the emergency department. This would have to be done as an outpatient. I have given you a note for few days off of work. Please continue use [id number] medications as well as rest ice compression elevation. Please come back to the emergency department for any acute concerns. Prescriptions: No Action fluoxetine 40 mg capsule 80 mg PO DAILY Qty: 90 RF: 3 Humulin R U-500 (Conc) Kwikpen 500 unit/mL (3 mL) insulin pen 50 unit SUBCUT .COMPLEX Qty: 3 RF: 3 (DME) BD Pen [place] 0 .Route .MEDSUPPLY Qty: 100 RF: 3 trazodone 100 mg tablet 200 mg PO BEDTIME Qty: 180 RF: 3 losartan [Cozaar] 50 mg tablet 50 mg PO BID Qty: 180 RF: 0 (DME) blood sugar diagnostic strip See Dose Instructions .ROUTE .MEDSUPPLY Qty: 100 RF: 3 propranolol 40 mg tablet 40 mg PO TID Qty: 270 RF: 3 ziprasidone HCl [Geodon] 60 mg capsule 60 mg PO BID Qty: 180 RF: 3 prazosin [Minipress] 5 mg capsule 10 mg PO BEDTIME Qty: 180 RF: 3 atorvastatin [Lipitor] 10 mg tablet 10 mg PO BEDTIME Qty: 90 RF: 3 Basaglar KwikPen U-100 Insulin 100 unit/mL (3 mL) insulin pen See Rx Instructions subcut TID-QID Qty: 15 RF: 3 Lancet: Device 1 ea miscellaneous DIRECTED RF: 0 [Glucometer ] 1 ea miscellaneous DIRECTED RF: 0 Referrals: Gucci Matta MD [Primary Care Provider] - Stand Alone Forms: Work Release Note
== END 2019-05-12 16:03 | disposition home or self-care (01) ==
PROVIDERS: Emergency Provider Nurse Practitioner Family; PCP Internal Medicine
DX: S93.402D Sprain of unspecified ligament of left ankle, subsequent encounter (principal); Y99.0 Civilian activity done for income or pay
CPT/HCPCS: 99282

== ENCOUNTER → 2019-06-14 06:52 | Outpatient (CLI) | payer OTHER, SELFPAY ==
[2018-09-21 09:16] VITALS: BMI 51.2
[2019-06-14 08:38] LABS: Hemoglobin A1C% w Est Avg Glu 6.1 % (4.0-6.0)
[2019-06-14 09:23] LABS: Alanine Aminotransferase 67 IU/L (<50); Albumin 4.4 g/dL (3.5-5.0); Albumin Globulin Ratio 1.5 (1.0-2.8); Alkaline Phosphatase 67 U/L (38-126); Aspartate Aminotransferase 41 IU/L (17-59); BUN Creatinine Ratio 11.4 (6-22); Bilirubin Total 0.5 mg/dL (0.2-1.3); Blood Urea Nitrogen 8 mg/dL (9-20); Calcium 8.9 mg/dL (8.4-10.2); Carbon Dioxide 28 mmol/L (22-32); Chloride 99 mmol/L (98-107); Cholesterol 198 mg/dL (140-199); Estimated Glomerular Filt Rate > 60.0 mL/min (>60); Glucose 123 mg/dL (70-100); HDL Cholesterol 30 mg/dL (40-60); HEMOLYSIS < 15 (0-50); LDL Cholesterol Calculated 125 mg/dL (<100); Sodium 138 mmol/L (137-145); Total Protein 7.4 g/dL (6.3-8.2); Triglycerides 217 mg/dL (35-150)
== END ==
PROVIDERS: PCP Internal Medicine; Visit Provider Internal Medicine
DX: E13.9 Other specified diabetes mellitus without complications (principal); K52.9 Noninfective gastroenteritis and colitis, unspecified; E78.2 Mixed hyperlipidemia
CPT/HCPCS: 36415; 80053; 80061; 83036

== ENCOUNTER 2019-09-14 11:44 | Emergency (ER) | payer OTHER, SELFPAY ==
[2018-09-21 09:16] VITALS: BMI 51.2
[2019-09-14 11:54] VITALS: BP 180/92; PULSE 76; RESP 16; TEMP 36.1; O2SAT 97
[2019-09-14 12:57] LABS: Add Manual Diff / Slide Review NO; Basophils Absolute Auto 100 /uL (0-100); Basophils Percent Auto 0.9 % (0-2); Eosinophils Absolute Auto 0 /uL (0-450); Eosinophils Percent Auto 0.4 % (2-4); Hematocrit 40.6 % (41-53); Hemoglobin 14.1 g/dL (13.5-17.5); Lymphocytes Absolute Auto 1900 /uL (1100-4500); Lymphocytes Percent Auto 34.1 % (25-40); Mean Corpuscular HGB Conc 34.6 % (30-36); Mean Corpuscular Volume 92.3 fL (80-100); Monocytes Absolute Auto 300 /uL (0-900); Monocytes Percent Auto 5.4 % (3-14); Neutrophils Absolute Auto 3400 /uL (1500-7000); Neutrophils Percent Auto 59.2 % (50-75); Platelet Count 191 X10^3/uL (150-400); Red Blood Cell Count 4.39 X10^6/uL (4.5-5.9); Red Cell Distribution Width 14.9 % (11.6-14.8); White Blood Cell Count 5.7 X10^3/uL (4.5-11.0)
--- NOTE | 2019-09-14 13:04 | ED_ITS ---
HPI - General Adult <Savanna Eckert SCHEDULER CONVEYOR-BC - Last Filed: 09/14/19 15:42> General Chief complaint: Diabetic Problem Stated complaint: Really High Blood Sugar Time Seen by Provider: 09/14/19 12:24 Source: patient Mode of arrival: Ambulatory Limitations: no limitations History of Present Illness HPI narrative: The patient is a 38-year-old male nonsmoker with history of diabetes and morbid obesity who presents with a chief complaint of ?my blood sugars high.He states his blood sugars been in the 200s since his doctor took him off his insulin 1 month ago. He has not followed up with primary care provider sounds. He states he feels like his blood sugars are high, he is nauseous and having trouble sleeping. Denies any chest pain or shortness of breath. States he has some transient nausea but is eating and drinking okay. He presents requesting that I restart NovoLog insulin. He has been self dosing Lantus at home and took 10 units this morning. He does not take anything for his diabetes right now denies being on any oral medications. Related Data Home Medications Medication Instructions Recorded Confirmed Lancet: Device 1 ea MISCELLANEOUS DIRECTED 09/19/18 02/15/19 [Glucometer ] 1 ea MISCELLANEOUS DIRECTED 09/19/18 02/15/19 Previous Rx's Medication Instructions Recorded insulin regular hum U-500 conc 50 unit SUBCUT .COMPLEX #3 ml 11/07/18 BD Pen [place] #100 each 11/08/18 trazodone 100 mg tablet 200 mg PO BEDTIME #180 tab 12/04/18 losartan 50 mg tablet 50 mg PO BID #180 tab 01/14/19 blood sugar diagnostic #100 each 01/21/19 atorvastatin 10 mg tablet 10 mg PO BEDTIME #90 tab 02/19/19 prazosin 5 mg capsule 10 mg PO BEDTIME #180 cap 02/19/19 propranolol 40 mg tablet 40 mg PO TID #270 tab 02/19/19 ziprasidone HCl 60 mg capsule 60 mg PO BID #180 cap 02/19/19 insulin glargine 100 unit/mL (3 See Rx Instructions SUBCUT TID-QID 03/05/19 mL) subcutaneous pen #15 ml fluoxetine 40 mg capsule See Rx Instructions .ROUTE 05/20/19 .COMPLEX #60 capsule metformin 500 mg PO BID #20 tab 09/14/19 Allergies Allergy/AdvReac Type Severity Reaction Status Date / Time No Known Drug Allergies Allergy Verified 05/02/19 19:54 Review of Systems <RHIANNON Cordova - Last Filed: 09/14/19 15:42> Review of Systems Narrative: GENERAL: See HPI HEENT: Denies sinus pain, ear pain, sore throat, difficulty swallowing, dizziness. RESPIRATORY: Denies dyspnea, cough, wheezing, hemoptysis, sputum. CARDIOVASCULAR: Denies chest pain, palpitations, orthopnea, edema, GASTROINTESTINAL: See HPI : Denies dysuria, frequency, incontinence, hematuria, urinary retention. MUSCULOSKELETAL: denies weakness, joint pain, or bony pain SKIN: Denies rash, skin lesions, or other NEUROLOGIC: Denies weakness, headache, numbness, change in speech, confusion, seizures, incoordination. PSYCHIATRIC: No concerning psychosocial issues. 12 point review of systems is negative except for those stated above Patient History <RHIANNON Cordova - Last Filed: 09/14/19 15:42> Medical History Anxiety (Resolved) Bipolar affective disorder (Chronic) Chronic back pain (Inactive) Colitis (Suspected) Depression (Resolved) Diabetes, type 1.5, controlled, managed as type 2 (Chronic) Erectile dysfunction (Chronic) Hyperlipidemia (Chronic) Hypertension (Chronic) Low testosterone in male (Chronic) Mixed hyperlipidemia (Chronic) Morbid obesity with BMI of 50.0-59.9, adult (Chronic) PTSD (post-traumatic stress disorder) (Chronic) Schizophrenia (Suspected) Type II diabetes mellitus, well controlled (Chronic) Vitamin D deficiency (Chronic) Surgical History Hx of discectomy (Resolved 2009) Hx of surgical procedure (Resolved 2005) Family History Father Hyperlipidemia Mother Diabetes mellitus Hypertension Hyperlipidemia Grandfather Cancer Grandmother Cancer Social History household members: family Smoking Status: Never smoker second hand exposure: No alcohol intake: never substance use type: does not use additional social history: No current social issues Smoking Status: Never smoker alcohol intake frequency: holidays/special occasions only Substance Use Type: does not use Exam <RHIANNON Cordova - Last Filed: 09/14/19 15:42> Narrative Exam Narrative: GENERAL: This is a well-nourished, well-developed patient, in no acute distress HEAD: Atraumatic. Normocephalic. No temporal or scalp tenderness. EYES: Pupils equal round and reactive. Extraocular motions intact. No scleral icterus. No injection or drainage. ENT: Nose without bleeding, purulent drainage or septal hematoma. Throat without erythema, tonsillar hypertrophy or exudate. Uvula midline. Airway patent. NECK: Trachea midline. No JVD or lymphadenopathy. Supple, nontender, no meningeal signs. CARDIOVASCULAR: Regular rate and rhyth RESPIRATORY: Clear to auscultation. Breath sounds equal bilaterally. No wheezes, rales, or rhonchi. No cough. No increased respiratory effort. No accessory muscle use. GASTROINTESTINAL: Abdomen soft, diffusely tender to palpation, nondistended. No hepato-splenomegaly, or palpable masses. No guarding. Active bowel sounds all 4 quadrants EXTREMITIES: No clubbing, cyanosis, or edema. No joint tenderness, effusion, or edema noted. BACK: Nontender without deformity or crepitance. No flank tenderness. NEURO: AOx3. SKIN: No rash or erythema on visible skin Initial Vital Signs Initial Vital Signs: Vital Signs Temperature 97 F L 09/14/19 11:54 Pulse Rate 76 09/14/19 11:54 Respiratory Rate 16 09/14/19 11:54 Blood Pressure 180/92 H 09/14/19 11:54 Pulse Oximetry 97 09/14/19 11:54 <Carrie Hall MD - Last Filed: 09/15/19 07:43> Initial Vital Signs Initial Vital Signs: Vital Signs Temperature 97 F L 09/14/19 11:54 Pulse Rate 76 09/14/19 11:54 Respiratory Rate 16 09/14/19 11:54 Blood Pressure 180/92 H 09/14/19 11:54 Pulse Oximetry 97 09/14/19 11:54 Course <RHIANNON Cordova - Last Filed: 09/14/19 15:42> Orders Ordered: Discontinued Medications Ondansetron HCl (Zofran Odt) 4 mg SL NOW ONE Stop: 09/14/19 12:42 Last Admin: 09/14/19 13:31 Dose: 4 mg Documented by: ANUJA Vital Signs Vital signs: Vital Signs - 8 hr 09/14/19 11:54 09/14/19 14:08 Temperature 97 F L Pulse Rate 76 78 Respiratory Rate 16 18 Blood Pressure 180/92 H Blood Pressure [Left Arm] 148/78 H Pulse Oximetry 97 99 <Carrie Hall MD - Last Filed: 09/15/19 07:43> Orders Ordered: Discontinued Medications Ondansetron HCl (Zofran Odt) 4 mg SL NOW ONE Stop: 09/14/19 12:42 Last Admin: 09/14/19 13:31 Dose: 4 mg Documented by: ANUJA Vital Signs Vital signs: Vital Signs - 8 hr 09/14/19 11:54 09/14/19 14:08 Temperature 97 F L Pulse Rate 76 78 Respiratory Rate 16 18 Blood Pressure 180/92 H Blood Pressure [Left Arm] 148/78 H Pulse Oximetry 97 99 Medical Decision Making <RHIANNON Cordova - Last Filed: 09/14/19 15:42> Lab Data Result diagrams: 09/14/19 12:49 09/14/19 12:49 Labs: Lab Results 09/14/19 09/14/19 Range/Units 12:49 12:49 WBC 5.7 (4.5-11.0) X10^3/uL RBC 4.39 L (4.5-5.9) X10^6/uL Hgb 14.1 (13.5-17.5) g/dL Hct 40.6 L (41-53) % MCV 92.3 (80-100) fL MCH 32.0 (26-34) PG MCHC 34.6 (30-36) % RDW 14.9 H (11.6-14.8) % Plt Count 191 (150-400) X10^3/uL Neut % (Auto) 59.2 (50-75) % Lymph % (Auto) 34.1 (25-40) % [place] % (Auto) 5.4 (3-14) % Eos % (Auto) 0.4 L (2-4) % Baso % (Auto) 0.9 (0-2) % Neut # (Auto) 3400 (4710-4917) /uL Lymph # (Auto) 1900 (7964-5668) /uL [place] # (Auto) 300 (0-900) /uL Eos # (Auto) 0 (0-450) /uL Baso # (Auto) 100 (0-100) /uL Sodium 135 L (137-145) mmol/L Potassium 4.4 (3.4-5.1) mmol/L Chloride 98 (98-107) mmol/L Carbon Dioxide 26 (22-32) mmol/L BUN 11 (9-20) mg/dL Creatinine 0.60 L (0.66-1.25) mg/dL Estimated GFR > 60.0 (>60) mL/min BUN/Creatinine Ratio 18.3 (6-22) Glucose 259 H (70-100) mg/dL Calcium 10.2 (8.4-10.2) mg/dL Total Bilirubin 0.6 (0.2-1.3) mg/dL AST 62 H (17-59) IU/L ALT 99 H (<50) IU/L Alkaline Phosphatase 95 (38-126) U/L Total Protein 8.5 H (6.3-8.2) g/dL Albumin 5.1 H (3.5-5.0) g/dL Globulin 3.4 (1.7-4.1) g/dL Albumin/Globulin Ratio 1.5 (1.0-2.8) Amylase 46 (30-110) U/L Lipase 57 (23-300) U/L Point of Care Testing Glucose POC 195 Urine Dip Bedside Urine Glucose 100 mg/dl Bedside Urine Bilirubin - Negative Bedside Urine Ketone - Negative Urine Specific [place] 1.005 Bedside Urine Occult Blood +/- Bedside Urine pH 6.5 Bedside Urine Protein - Negative Bedside Urine Urobilinogen - Negative Bedside Urine Nitrite - Negative Bedside Urine Leukocytes - Negative Esterase Point of care testing: Point of Care Testing Glucose POC 195 Urine Dip Bedside Urine Glucose 100 mg/dl Bedside Urine Bilirubin - Negative Bedside Urine Ketone - Negative Urine Specific [place] 1.005 Bedside Urine Occult Blood +/- Bedside Urine pH 6.5 Bedside Urine Protein - Negative Bedside Urine Urobilinogen - Negative Bedside Urine Nitrite - Negative Bedside Urine Leukocytes - Negative Esterase MDM Narrative Medical decision making narrative: The patient is a 38-year-old male who presents with a chief complaint of high blood sugars. He is in the upper 100s to low 200s in the emergency department today. Basic labs came back with no acute findings, CO 26. He felt much better throughout his stay in the emergency department. Chart review illustrate the patient has a diagnosis of diabetes 1.5, controlled as 2. Some PCP records from Dr. Matta report uncontrolled type 2 diabetes. He is requesting that he restart his insulin, I am not comfortable doing this at this point the emergency department with blood sugars in the 190s. I discussed at length use of metformin, the importance of following up with primary care provider. Patient has no questions or concerns upon discharge and states understanding of return precautions as well as follow-up care. <Carrie Hall MD - Last Filed: 09/15/19 07:43> Lab Data Labs: Lab Results 09/14/19 09/14/19 Range/Units 12:49 12:49 WBC 5.7 (4.5-11.0) X10^3/uL RBC 4.39 L (4.5-5.9) X10^6/uL Hgb 14.1 (13.5-17.5) g/dL Hct 40.6 L (41-53) % MCV 92.3 (80-100) fL MCH 32.0 (26-34) PG MCHC 34.6 (30-36) % RDW 14.9 H (11.6-14.8) % Plt Count 191 (150-400) X10^3/uL Neut % (Auto) 59.2 (50-75) % Lymph % (Auto) 34.1 (25-40) % [place] % (Auto) 5.4 (3-14) % Eos % (Auto) 0.4 L (2-4) % Baso % (Auto) 0.9 (0-2) % Neut # (Auto) 3400 (2719-0796) /uL Lymph # (Auto) 1900 (8289-4063) /uL [place] # (Auto) 300 (0-900) /uL Eos # (Auto) 0 (0-450) /uL Baso # (Auto) 100 (0-100) /uL Sodium 135 L (137-145) mmol/L Potassium 4.4 (3.4-5.1) mmol/L Chloride 98 (98-107) mmol/L Carbon Dioxide 26 (22-32) mmol/L BUN 11 (9-20) mg/dL Creatinine 0.60 L (0.66-1.25) mg/dL Estimated GFR > 60.0 (>60) mL/min BUN/Creatinine Ratio 18.3 (6-22) Glucose 259 H (70-100) mg/dL Calcium 10.2 (8.4-10.2) mg/dL Total Bilirubin 0.6 (0.2-1.3) mg/dL AST 62 H (17-59) IU/L ALT 99 H (<50) IU/L Alkaline Phosphatase 95 (38-126) U/L Total Protein 8.5 H (6.3-8.2) g/dL Albumin 5.1 H (3.5-5.0) g/dL Globulin 3.4 (1.7-4.1) g/dL Albumin/Globulin Ratio 1.5 (1.0-2.8) Amylase 46 (30-110) U/L Lipase 57 (23-300) U/L Point of Care Testing Glucose POC 195 Urine Dip Bedside Urine Glucose 100 mg/dl Bedside Urine Bilirubin - Negative Bedside Urine Ketone - Negative Urine Specific [place] 1.005 Bedside Urine Occult Blood +/- Bedside Urine pH 6.5 Bedside Urine Protein - Negative Bedside Urine Urobilinogen - Negative Bedside Urine Nitrite - Negative Bedside Urine Leukocytes - Negative Esterase Point of care testing: Point of Care Testing Glucose POC 195 Urine Dip Bedside Urine Glucose 100 mg/dl Bedside Urine Bilirubin - Negative Bedside Urine Ketone - Negative Urine Specific [place] 1.005 Bedside Urine Occult Blood +/- Bedside Urine pH 6.5 Bedside Urine Protein - Negative Bedside Urine Urobilinogen - Negative Bedside Urine Nitrite - Negative Bedside Urine Leukocytes - Negative Esterase Discharge Plan Departure Patient Disposition: Home Clinical Impression: Hyperglycemia, unspecified Discharge Date/Time: 09/14/19 14:18 Instructions: DI for Hyperglycemia -- Adult Activity Restrictions/Additional Instructions: Thank you for trusting us with your care today. Your labs came back very well. Your blood sugars have been in the 190s to low 200s while you have been here in the emergency department. Please follow-up with primary care provider in the next few days. In the meantime, I have sent in a prescription of metformin to [facility]. This is often used for initial therapy in type 2 diabetes, can be used as adjunctive therapy in type 1 diabetes. Please come back to the emergency department for any acute concerns. Prescriptions: New metformin 500 mg tablet 500 mg PO BID Qty: 20 RF: 0 No Action Humulin R U-500 (Conc) Kwikpen 500 unit/mL (3 mL) insulin pen 50 unit SUBCUT .COMPLEX Qty: 3 RF: 3 (DME) BD Pen [place] 0 .Route .MEDSUPPLY Qty: 100 RF: 3 trazodone 100 mg tablet 200 mg PO BEDTIME Qty: 180 RF: 3 losartan [Cozaar] 50 mg tablet 50 mg PO BID Qty: 180 RF: 0 (DME) blood sugar diagnostic strip See Dose Instructions .ROUTE .MEDSUPPLY Qty: 100 RF: 3 propranolol 40 mg tablet 40 mg PO TID Qty: 270 RF: 3 ziprasidone HCl [Geodon] 60 mg capsule 60 mg PO BID Qty: 180 RF: 3 prazosin [Minipress] 5 mg capsule 10 mg PO BEDTIME Qty: 180 RF: 3 atorvastatin [Lipitor] 10 mg tablet 10 mg PO BEDTIME Qty: 90 RF: 3 Basaglar KwikPen U-100 Insulin 100 unit/mL (3 mL) insulin pen See Rx Instructions subcut TID-QID Qty: 15 RF: 3 fluoxetine 40 mg capsule See Rx Instructions .ROUTE .COMPLEX Qty: 60 RF: 3 Lancet: Device 1 ea miscellaneous DIRECTED RF: 0 [Glucometer ] 1 ea miscellaneous DIRECTED RF: 0 Referrals: Gucci Matta MD [Primary Care Provider] -
[2019-09-14 13:10] LABS: Alanine Aminotransferase 99 IU/L (<50); Albumin 5.1 g/dL (3.5-5.0); Albumin Globulin Ratio 1.5 (1.0-2.8); Alkaline Phosphatase 95 U/L (38-126); Amylase 46 U/L (30-110); Aspartate Aminotransferase 62 IU/L (17-59); BUN Creatinine Ratio 18.3 (6-22); Bilirubin Total 0.6 mg/dL (0.2-1.3); Blood Urea Nitrogen 11 mg/dL (9-20); Calcium 10.2 mg/dL (8.4-10.2); Carbon Dioxide 26 mmol/L (22-32); Chloride 98 mmol/L (98-107); Estimated Glomerular Filt Rate > 60.0 mL/min (>60); Globulin 3.4 g/dL (1.7-4.1); Glucose 259 mg/dL (70-100); HEMOLYSIS < 15 (0-50); Lipase 57 U/L (23-300); Potassium 4.4 mmol/L (3.4-5.1); Sodium 135 mmol/L (137-145); Total Protein 8.5 g/dL (6.3-8.2)
[2019-09-14] MEDS: ONDANSETRON 4 MG ODT SL (13:31)
[2019-09-14 14:08] VITALS: BP 148/78; PULSE 78; RESP 18; O2SAT 99
== END 2019-09-14 14:18 | disposition home or self-care (01) ==
PROVIDERS: Emergency Provider Nurse Practitioner Family; PCP Internal Medicine
DX: E13.65 Other specified diabetes mellitus with hyperglycemia (principal); Z79.4 Long term (current) use of insulin
CPT/HCPCS: 36415; 80053; 81003; 82150; 82962; 83690; 85025; 99283; 99284

== ENCOUNTER 2019-11-20 04:48 | Emergency (ER) | payer OTHER, SELFPAY ==
[2018-09-21 09:16] VITALS: BMI 51.2
[2019-11-20 04:59] VITALS: BP 169/83; PULSE 62; RESP 24; TEMP 36; O2SAT 97; BMI 59.3
--- NOTE | 2019-11-20 05:02 | ED_ITS ---
HPI - General Adult General Chief complaint: Urogenital-Male Stated complaint: pain in sides Time Seen by Provider: 11/20/19 05:02 History of Present Illness HPI narrative: 38-year-old type 2 diabetic, morbidly obese with hypertension hyperlipidemia presents with bilateral flank pain for 3 days. No urinary symptoms per se with no discharge from his penis. He does note that he had unpr otected intercourse approximately 3 days ago. He states that he has been having bowel movements but they have not been ?completely normal? but describes no blood in them. No fevers, cough, chills, chest pain, shortness of breath, wheeze, cough, nausea, vomiting. He notes some mild suprapubic tenderness. No skin changes, no lower extremity edema. Notes that hip to his blood sugars have been in the 3-400 range for the last month or so and reports that he regularly sees a physician in [place]. He does have an ANITA form that is reviewed today. Related Data Home Medications Medication Instructions Recorded Confirmed Lancet: Device 1 ea MISCELLANEOUS DIRECTED 09/19/18 02/15/19 [Glucometer ] 1 ea MISCELLANEOUS DIRECTED 09/19/18 02/15/19 Previous Rx's Medication Instructions Recorded insulin regular hum U-500 conc 50 unit SUBCUT .COMPLEX #3 ml 11/07/18 BD Pen [place] #100 each 11/08/18 trazodone 100 mg tablet 200 mg PO BEDTIME #180 tab 12/04/18 losartan 50 mg tablet 50 mg PO BID #180 tab 01/14/19 blood sugar diagnostic #100 each 01/21/19 atorvastatin 10 mg tablet 10 mg PO BEDTIME #90 tab 02/19/19 prazosin 5 mg capsule 10 mg PO BEDTIME #180 cap 02/19/19 propranolol 40 mg tablet 40 mg PO TID #270 tab 02/19/19 ziprasidone HCl 60 mg capsule 60 mg PO BID #180 cap 02/19/19 insulin glargine 100 unit/mL (3 See Rx Instructions SUBCUT TID-QID 03/05/19 mL) subcutaneous pen #15 ml fluoxetine 40 mg capsule See Rx Instructions .ROUTE 05/20/19 .COMPLEX #60 capsule metformin 500 mg PO BID #20 tab 09/14/19 Allergies Allergy/AdvReac Type Severity Reaction Status Date / Time No Known Drug Allergies Allergy Verified 05/02/19 19:54 Review of Systems Review of Systems Narrative: Pertinent positive and negative findings as per HPI Remainder of review of systems is otherwise unremarkable for Constitutional: Fevers, chills, weakness ENT: No sore throat, neck pain, ear pain MS: Muscle weakness, numbness, joint swelling or warmth Skin: Rashes, nonhealing lesions Neuro: Syncope, dizziness, tingling Psych: Depression, anxiety, suicidal ideation Endocrine: Fatigue, heat or cold intolerance, very dry skin Heme: Easy bruising or bleeding Allergy: Seasonal rhinorrhea, itchy eyes Patient History Medical History Anxiety (Resolved) Bipolar affective disorder (Chronic) Chronic back pain (Inactive) Colitis (Suspected) Depression (Resolved) Diabetes, type 1.5, controlled, managed as type 2 (Chronic) Erectile dysfunction (Chronic) Hyperlipidemia (Chronic) Hypertension (Chronic) Low testosterone in male (Chronic) Mixed hyperlipidemia (Chronic) Morbid obesity with BMI of 50.0-59.9, adult (Chronic) PTSD (post-traumatic stress disorder) (Chronic) Schizophrenia (Suspected) Type II diabetes mellitus, well controlled (Chronic) Vitamin D deficiency (Chronic) Surgical History Hx of discectomy (Resolved 2009) Hx of surgical procedure (Resolved 2005) Family History Father Hyperlipidemia Mother Diabetes mellitus Hypertension Hyperlipidemia Grandfather Cancer Grandmother Cancer Social History household members: family Smoking Status: Never smoker second hand exposure: No alcohol intake: never substance use type: does not use additional social history: No current social issues Smoking Status: Never smoker alcohol intake frequency: holidays/special occasions only Substance Use Type: does not use Exam Narrative Exam Narrative: General: Healthy appearing, in no acute distress. Able to give a complete and coherent history. Well-nourished well-developed HEENT: Moist mucous membranes, normal sclera with reactive pupils, Neck: supple Respiratory: Lungs are clear to auscultation, no wheezing no rales no rhonchi. Full and symmetrical air movement Cardiac: Regular rate and rhythm no murmurs no bruits Abdomen: Soft , touches the sides of his waist bilaterally when he is describing his pain however with palpation any portion of the abdomen or flank that is touched he states hurts with no pain affect of behavior, rebound or gu arding. Skin: Warm and dry, no rashes, well-healed lumbar surgery scar Neurologic: Grossly neurologically intact with no obvious asymmetries or abnormalities Extremities: No trauma, well perfused, 1+ edema bilaterally Psych: Cooperative, good eye contact, disaffected affect Initial Vital Signs Initial Vital Signs: Vital Signs Temperature 96.8 F L 11/20/19 04:59 Pulse Rate 62 11/20/19 04:59 Respiratory Rate 24 11/20/19 04:59 Blood Pressure 169/83 H 11/20/19 04:59 Pulse Oximetry 97 11/20/19 04:59 Course Orders Ordered: ED Orders 11/20/19 05:00 Chlamydia Gonorrhea PCR -URINE Stat Urinalysis and Microscopic Stat 11/20/19 05:25 Complete Blood Count AUTO DIFF Stat Comprehensive Metabolic Panel Stat Discontinued Medications Acetaminophen (Tylenol) 325 mg PO NOW ONE Stop: 11/20/19 05:59 Ibuprofen (Advil) 400 mg PO NOW ONE Stop: 11/20/19 05:59 Vital Signs Vital signs: Vital Signs - 8 hr 11/20/19 04:59 Temperature 96.8 F L Pulse Rate 62 Respiratory Rate 24 Blood Pressure 169/83 H Pulse Oximetry 97 Medical Decision Making Lab Data Result diagrams: 11/20/19 05:25 11/20/19 05:25 Labs: Lab Results 11/20/19 11/20/19 11/20/19 Range/Units 05:00 05:25 05:25 WBC 4.8 (4.5-11.0) X10^3/uL RBC 4.24 L (4.5-5.9) X10^6/uL Hgb 13.4 L (13.5-17.5) g/dL Hct 39.3 L (41-53) % MCV 92.7 (80-100) fL MCH 31.7 (26-34) PG MCHC 34.2 (30-36) % RDW 14.8 (11.6-14.8) % Plt Count 178 (150-400) X10^3/uL Neut % (Auto) 51.0 (50-75) % Lymph % (Auto) 38.9 (25-40) % [place] % (Auto) 9.0 (3-14) % Eos % (Auto) 0.8 L (2-4) % Baso % (Auto) 0.3 (0-2) % Neut # (Auto) 2500 (5152-2401) /uL Lymph # (Auto) 1900 (6563-6089) /uL [place] # (Auto) 400 (0-900) /uL Eos # (Auto) 0 (0-450) /uL Baso # (Auto) 0 (0-100) /uL Sodium 131 L (137-145) mmol/L Potassium 4.0 (3.4-5.1) mmol/L Chloride 94 L (98-107) mmol/L Carbon Dioxide 27 (22-32) mmol/L BUN 12 (9-20) mg/dL Creatinine 0.67 (0.66-1.25) mg/dL Estimated GFR > 60.0 (>60) mL/min BUN/Creatinine Ratio 17.9 (6-22) Glucose 344 H (70-100) mg/dL Calcium 9.3 (8.4-10.2) mg/dL Total Bilirubin 0.8 (0.2-1.3) mg/dL AST 63 H (17-59) IU/L ALT 94 H (<50) IU/L Alkaline Phosphatase 102 (38-126) U/L Total Protein 7.5 (6.3-8.2) g/dL Albumin 4.5 (3.5-5.0) g/dL Globulin 3.0 (1.7-4.1) g/dL Albumin/Globulin Ratio 1.5 (1.0-2.8) Urine Color Yellow Urine Appearance Clear Urine pH 6.0 (4.5-8.0) Ur Specific [place] 1.010 (1.000-1.035) Urine Protein Negative (Negative) Urine Glucose (UA) 2+ H (Negative) g/dL Urine Ketones Negative (NEGATIVE) Urine Occult Blood Negative (Negative) Urine Nitrate Negative (Negative) Urine Bilirubin Negative (NEGATIVE) Urine Urobilinogen 0.2 (0.2) E.U./dL Ur Leukocyte Esterase Negative (NEGATIVE) Urine Dip Bedside Urine Glucose 1000 mg/dl Bedside Urine Bilirubin - Negative Bedside Urine Ketone - Negative Urine Specific [place] 1.015 Bedside Urine Occult Blood - Negative Bedside Urine Protein - Negative Bedside Urine Urobilinogen - Negative Bedside Urine Nitrite - Negative Bedside Urine Leukocytes - Negative Esterase Point of care testing: Urine Dip Bedside Urine Glucose 1000 mg/dl Bedside Urine Bilirubin - Negative Bedside Urine Ketone - Negative Urine Specific [place] 1.015 Bedside Urine Occult Blood - Negative Bedside Urine Protein - Negative Bedside Urine Urobilinogen - Negative Bedside Urine Nitrite - Negative Bedside Urine Leukocytes - Negative Esterase MDM Narrative Medical decision making narrative: 38-year-old gentleman presents with vague complaints of flank pain but then points to his mid abdominal folds. No urinary symptoms or discharge but he is concerned about an episode of unprotected intercourse 3 days ago. Labs are unremarkable. Sugars remain elevated without evidence of DKA. Urine is sent for STI testing. He is encouraged follow-up with his primary care physician is safe for home discharge at this time Discharge Plan Departure Patient Disposition: Home Clinical Impression: Bilateral flank pain Instructions: Facts About Sexually Transmitted Infections, DI for Urinary Tract Infection (UTI) Activity Restrictions/Additional Instructions: Thank you for coming in today I did not find a life-threatening explanation for the side/flank pain that you are experiencing. Your blood work was very reassuring and does not suggest pyelonephritis, kidney stones or acute abdominal infection. Your urine has been sent to the lab and will be tested for both gonorrhea and Chlamydia, both sexually transmitted infections. Without any additional discharge or dysuria, I do not think that you need treatment until we actually see positive results return. If the test returned positive you will receive a phone call. Regarding your elevated blood sugars, you need to schedule a follow-up appoint ment with your primary care physician to discuss this to make a point of trying to get your blood sugars under better control. When sugars or more tightly controlled people have less problems with frequent urination and less infections. Using 400 mg of ibuprofen (2 cgtn-[id number] pills) and 1 Tylenol every 6 hours can be very helpful in controlling pain. If you develop fevers, rashes, other significant findings or concerns please feel free to return to the emergency department. Prescriptions: No Action Humulin R U-500 (Conc) Kwikpen 500 unit/mL (3 mL) insulin pen 50 unit SUBCUT .COMPLEX Qty: 3 RF: 3 (DME) BD Pen [place] 0 .Route .MEDSUPPLY Qty: 100 RF: 3 trazodone 100 mg tablet 200 mg PO BEDTIME Qty: 180 RF: 3 losartan [Cozaar] 50 mg tablet 50 mg PO BID Qty: 180 RF: 0 (DME) blood sugar diagnostic strip See Dose Instructions .ROUTE .MEDSUPPLY Qty: 100 RF: 3 propranolol 40 mg tablet 40 mg PO TID Qty: 270 RF: 3 ziprasidone HCl [Geodon] 60 mg capsule 60 mg PO BID Qty: 180 RF: 3 prazosin [Minipress] 5 mg capsule 10 mg PO BEDTIME Qty: 180 RF: 3 atorvastatin [Lipitor] 10 mg tablet 10 mg PO BEDTIME Qty: 90 RF: 3 Basaglar KwikPen U-100 Insulin 100 unit/mL (3 mL) insulin pen See Rx Instructions subcut TID-QID Qty: 15 RF: 3 fluoxetine 40 mg capsule See Rx Instructions .ROUTE .COMPLEX Qty: 60 RF: 3 Lancet: Device 1 ea miscellaneous DIRECTED RF: 0 [Glucometer ] 1 ea miscellaneous DIRECTED RF: 0 metformin 500 mg tablet 500 mg PO BID Qty: 20 RF: 0 Referrals: Gucci Matta MD [Primary Care Provider] -
[2019-11-20 05:30] LABS: Bacteria Urine None Seen; RBC Urine None Seen (0-5/HPF); WBC Urine None Seen (0-5/HPF)
[2019-11-20 05:49] LABS: Add Manual Diff / Slide Review NO; Basophils Absolute Auto 0 /uL (0-100); Basophils Percent Auto 0.3 % (0-2); Eosinophils Absolute Auto 0 /uL (0-450); Eosinophils Percent Auto 0.8 % (2-4); Hematocrit 39.3 % (41-53); Hemoglobin 13.4 g/dL (13.5-17.5); Lymphocytes Absolute Auto 1900 /uL (1100-4500); Lymphocytes Percent Auto 38.9 % (25-40); Mean Corpuscular HGB Conc 34.2 % (30-36); Mean Corpuscular Hemoglobin 31.7 PG (26-34); Mean Corpuscular Volume 92.7 fL (80-100); Monocytes Absolute Auto 400 /uL (0-900); Neutrophils Absolute Auto 2500 /uL (1500-7000); Platelet Count 178 X10^3/uL (150-400); Red Blood Cell Count 4.24 X10^6/uL (4.5-5.9); Red Cell Distribution Width 14.8 % (11.6-14.8); White Blood Cell Count 4.8 X10^3/uL (4.5-11.0)
[2019-11-20 05:58] LABS: Alanine Aminotransferase 94 IU/L (<50); Albumin 4.5 g/dL (3.5-5.0); Albumin Globulin Ratio 1.5 (1.0-2.8); Alkaline Phosphatase 102 U/L (38-126); Aspartate Aminotransferase 63 IU/L (17-59); BUN Creatinine Ratio 17.9 (6-22); Bilirubin Total 0.8 mg/dL (0.2-1.3); Blood Urea Nitrogen 12 mg/dL (9-20); Calcium 9.3 mg/dL (8.4-10.2); Carbon Dioxide 27 mmol/L (22-32); Chloride 94 mmol/L (98-107); Estimated Glomerular Filt Rate > 60.0 mL/min (>60); Glucose 344 mg/dL (70-100); HEMOLYSIS < 15 (0-50); Sodium 131 mmol/L (137-145); Total Protein 7.5 g/dL (6.3-8.2)
[2019-11-20 05:58] LABS: Appearance Urine UA CLEAR; Bilirubin Urine UA NEGATIVE (NEGATIVE); Color Urine UA YELLOW; Glucose Urine UA 2+ g/dL (Negative); Ketones Urine UA NEGATIVE (NEGATIVE); Leukocyte Esterase Urine UA NEGATIVE (NEGATIVE); Nitrite Urine UA NEGATIVE (Negative); Occult Blood Urine UA NEGATIVE (Negative); Protein Urine UA NEGATIVE (Negative); Urobilinogen Urine UA 0.2 E.U./dL (0.2)
[2019-11-20] MEDS: IBUPROFEN 400 MG TABLET PO (06:20)
[2019-11-20] MEDS: ACETAMINOPHEN 325 MG TABLET PO (06:21)
[2019-11-20 06:27] VITALS: BP 162/81; PULSE 88; RESP 24; O2SAT 96
[2019-11-20 06:40] LABS: Culture Indicated Urine Cult Not Indicated
[2019-11-20 07:31] LABS: Urine N gonorrhoeae NOT DETECTED
[2019-11-20 08:04] LABS: Urine Chlamydia NOT DETECTED
== END 2019-11-20 06:27 | disposition home or self-care (01) ==
PROVIDERS: Emergency Provider Emergency Medicine; PCP Internal Medicine
DX: R10.9 Unspecified abdominal pain (principal); E11.9 Type 2 diabetes mellitus without complications; E66.01 Morbid (severe) obesity due to excess calories; I10 Essential (primary) hypertension; E78.5 Hyperlipidemia, unspecified; Z11.3 Encounter for screening for infections with a predominantly sexual mode of transmission
CPT/HCPCS: 36415; 80053; 81001; 81003; 85025; 87491; 87591; 99283

== ENCOUNTER 2020-03-05 18:10 | Emergency (ER) | payer OTHER, SELFPAY ==
[2018-09-21 09:16] VITALS: BMI 51.2
[2020-03-05 18:20] VITALS: BP 135/62; PULSE 79; RESP 18; TEMP 36; O2SAT 97; BMI 51.3
--- NOTE | 2020-03-05 18:59 | ED.SKABFB ---
HPI - Skin/Abscess/Foreign Bdy General Chief complaint: Skin/Abscess/Foreign Body Stated complaint: rash around groin area Time Seen by Provider: 03/05/20 18:50 Source: patient Mode of arrival: Ambulatory Limitations: no limitations History of Present Illness HPI narrative: Patient is a 39-year-old male for evaluation of 2 lumps/rash on his scrotum. He states that he just felt these 2 comes today. He states that he was concerned that potentially they were abscesses or sexually transmitted disease. He has had unprotected intercourse. He has never had an STD in the past. He is not having any urinary symptoms. No fevers. Has not tried anything for symptoms prior to arrival. Related Data Home Medications Medication Instructions Recorded Confirmed Lancet: Device 1 ea MISCELLANEOUS DIRECTED 09/19/18 02/15/19 [Glucometer ] 1 ea MISCELLANEOUS DIRECTED 09/19/18 02/15/19 Previous Rx's Medication Instructions Recorded insulin regular hum U-500 conc 50 unit SUBCUT .COMPLEX #3 ml 11/07/18 BD Pen [place] #100 each 11/08/18 trazodone 100 mg tablet 200 mg PO BEDTIME #180 tab 12/04/18 losartan 50 mg tablet 50 mg PO BID #180 tab 01/14/19 blood sugar diagnostic #100 each 01/21/19 atorvastatin 10 mg tablet 10 mg PO BEDTIME #90 tab 02/19/19 prazosin 5 mg capsule 10 mg PO BEDTIME #180 cap 02/19/19 propranolol 40 mg tablet 40 mg PO TID #270 tab 02/19/19 ziprasidone HCl 60 mg capsule 60 mg PO BID #180 cap 02/19/19 insulin glargine 100 unit/mL (3 See Rx Instructions SUBCUT TID-QID 03/05/19 mL) subcutaneous pen #15 ml fluoxetine 40 mg capsule See Rx Instructions .ROUTE 05/20/19 .COMPLEX #60 capsule metformin 500 mg PO BID #20 tab 09/14/19 Allergies Allergy/AdvReac Type Severity Reaction Status Date / Time No Known Drug Allergies Allergy Verified 03/05/20 18:20 Review of Systems Constitutional Constitutional: Denies fatigue and Denies headache(s) ENT Ears, Nose, Mouth, and Throat: Denies headache(s) Cardiovascular Cardiovascular: Denies chest pain and Denies dyspnea Respiratory Respiratory: Denies dyspnea Gastrointestinal Gastrointestinal: Denies abdominal pain, Denies change in bowel habits, Denies diarrhea, Denies nausea and Denies vomiting Genitourinary Genitourinary: Denies hematuria, Denies difficulty urinating, Denies dysuria, Denies erectile dysfunction, Reports genital lesions, Denies genital pain, Denies dysuria and Reports other (Scrotal lump) Genitourinary: Denies hematuria, Denies dysuria, Reports genital lesions and Denies dysuria Musculoskeletal Musculoskeletal: Denies arthralgias and Denies myalgias Integumentary/Breasts Skin/Breast: Denies rash Neurologic Neurologic: Denies behavioral changes and Denies headache(s) Psychiatric Psychiatric: Denies behavioral changes Endocrine Endocrine: Denies fatigue Hematologic/Lymphatic Hematologic/Lymphatic: Denies easy bleeding and Denies easy bruising Patient History Medical History Anxiety (Resolved) Bipolar affective disorder (Chronic) Chronic back pain (Inactive) Colitis (Suspected) Depression (Resolved) Diabetes, type 1.5, controlled, managed as type 2 (Chronic) Erectile dysfunction (Chronic) Hyperlipidemia (Chronic) Hypertension (Chronic) Low testosterone in male (Chronic) Mixed hyperlipidemia (Chronic) Morbid obesity with BMI of 50.0-59.9, adult (Chronic) PTSD (post-traumatic stress disorder) (Chronic) Schizophrenia (Suspected) Type II diabetes mellitus, well controlled (Chronic) Vitamin D deficiency (Chronic) Surgical History Hx of discectomy (Resolved 2009) Hx of surgical procedure (Resolved 2005) Family History Father Hyperlipidemia Mother Diabetes mellitus Hypertension Hyperlipidemia Grandfather Cancer Grandmother Cancer Social History household members: family Smoking Status: Never smoker second hand exposure: No alcohol intake: never substance use type: does not use additional social history: No current social issues Smoking Status: Never smoker alcohol intake frequency: holidays/special occasions only Substance Use Type: does not use Exam Initial Vital Signs Initial Vital Signs: Vital Signs Temperature 96.8 F L 03/05/20 18:20 Pulse Rate 79 03/05/20 18:20 Respiratory Rate 18 03/05/20 18:20 Blood Pressure 135/62 03/05/20 18:20 Pulse Oximetry 97 03/05/20 18:20 Const General: cooperative and comfortable Limitations: mental status not altered HENMT Head: normal to inspection and normocephalic External: circumcised Penis: normal penis Meatus: meatus normal Testes: normal, testicular lie normal and no masses Other: Patient has a small (less than 1 cm) soft freely movable mass located in the left scrotum. Overlying skin is unremarkable. It is distinctly separate from the left testicle. He also has a very small pustule on the base/left side of the penile shaft. Skin surrounding this area unremarkable. Course Orders Ordered: ED Orders 03/05/20 18:59 US scrotum Stat Vital Signs Vital signs: Vital Signs - 8 hr 03/05/20 18:20 Temperature 96.8 F L Pulse Rate 79 Respiratory Rate 18 Blood Pressure 135/62 Pulse Oximetry 97 MDM - Skin/Abscess/Foreign Bdy Imaging Data US scrotal: Radiologist's Impression: [address] [address] Ultrasound Report Signed Patient: Gustavo Mack [facility]#: [id number] : 1980Acct:[id number] Age/Sex: 39 / MDate of Service: 03/05/20 Loc: ED Accession Number: [id number] Procedure: US scrotum Ordering Provider: Anoop Arnett D.O. PROCEDURE: US SCROTUM INDICATIONS: LUMP TECHNIQUE: Real-time scanning was performed of the scrotum and testicles, with image documentation. Color and pulse Doppler interrogation was performed of both testicles. COMPARISON: None. FINDINGS: Right: Testicle is normal in size at 4.3 x 2.3 x 3.1 cm, and homogenous in echotexture. Epididymis is normal in overall size and morphology. 2 mm right epididymal head cyst. No hydrocele or varicoceles. Overlying scrotal skin is normal in thickness. Left: Testicle is normal in size at 4.0 x 2.5 x 3.6 cm, and homogeneous in echotexture. Epididymis is normal in overall size and morphology. No hydrocele or varicoceles. Overlying scrotal skin is normal in thickness. Doppler: Color and pulse Doppler demonstrate normal and symmetric arterial flow in both testicles. IMPRESSION: Normal scrotal ultrasound. Dictated by: Cydney Noel M.D. on 03/05/2020 at 19:55 Approved by: Cydney Noel M.D. on 03/05/2020 at 19:57 MDM Narrative Medical decision making narrative: Scrotal ultrasound does not show any abnormal testicular findings. Does not specifically mention the mass in the left hemiscrotum however given the physical appearance of this I do suspect that it is cyst that is distinctly separate from the left testicle. The overlying skin points against in etiology such as an abscess and I feel that holding on any antibiotics or any incision and drainage currently is warranted. The small pustule on the top of the penis does appear to be an ingrown hair. Low suspicion that the patient's symptoms today are ST related. I did discuss this with him. Feel we can hold on further workup for now. Patient was given return precautions and follow-up instructions. He expressed understanding and agreement. Discharge Plan Departure Patient Disposition: Home Clinical Impression: Ingrowing hair, Cyst of scrotum Discharge Date/Time: 03/05/20 20:15 Activity Restrictions/Additional Instructions: Your workup in the emergency department today was unremarkable for any infection. I would recommend that you keep watch over that lump on the left side of the scrotum. If it becomes larger or painful then you do need to be re-evaluated. You can contact your primary provider for this re-evaluation. Return to the emergency department for any new or worsening symptoms Prescriptions: No Action Humulin R U-500 (Conc) Kwikpen 500 unit/mL (3 mL) insulin pen 50 unit SUBCUT .COMPLEX Qty: 3 RF: 3 (DME) BD Pen [place] 0 .Route .MEDSUPPLY Qty: 100 RF: 3 trazodone 100 mg tablet 200 mg PO BEDTIME Qty: 180 RF: 3 losartan [Cozaar] 50 mg tablet 50 mg PO BID Qty: 180 RF: 0 (DME) blood sugar diagnostic strip See Dose Instructions .ROUTE .MEDSUPPLY Qty: 100 RF: 3 propranolol 40 mg tablet 40 mg PO TID Qty: 270 RF: 3 ziprasidone HCl [Geodon] 60 mg capsule 60 mg PO BID Qty: 180 RF: 3 prazosin [Minipress] 5 mg capsule 10 mg PO BEDTIME Qty: 180 RF: 3 atorvastatin [Lipitor] 10 mg tablet 10 mg PO BEDTIME Qty: 90 RF: 3 Basaglar KwikPen U-100 Insulin 100 unit/mL (3 mL) insulin pen See Rx Instructions subcut TID-QID Qty: 15 RF: 3 fluoxetine 40 mg capsule See Rx Instructions .ROUTE .COMPLEX Qty: 60 RF: 3 Lancet: Device 1 ea miscellaneous DIRECTED RF: 0 [Glucometer ] 1 ea miscellaneous DIRECTED RF: 0 metformin 500 mg tablet 500 mg PO BID Qty: 20 RF: 0 Referrals: Gucci Matta MD [Primary Care Provider] -
== END 2020-03-05 20:15 | disposition home or self-care (01) ==
PROVIDERS: Emergency Provider Emergency Medicine; PCP Internal Medicine
DX: L73.1 Pseudofolliculitis barbae (principal); L72.9 Follicular cyst of the skin and subcutaneous tissue, unspecified
CPT/HCPCS: 76870; 99283

== ENCOUNTER 2020-07-06 10:18 | Emergency (ER) | payer OTHER, SELFPAY ==
[2018-09-21 09:16] VITALS: BMI 51.2
[2020-07-06 10:23] VITALS: BP 163/111; PULSE 86; RESP 18; TEMP 36.2; O2SAT 100; BMI 56.7
--- NOTE | 2020-07-06 10:28 | ED_ITS ---
HPI - Extremity Injury (Lower) General Chief Complaint: Extremity Injury, Lower Stated Complaint: Slipped on ice,rt leg injured Time Seen by Provider: 07/06/20 10:20 Source: patient Mode of arrival: Wheelchair Limitations: no limitations History of Present Illness HPI Narrative: 39M nonsmoker with history of HTN, hyperlipidemia, and PTSD and the chief complaint of a slip and fall with resultant R groin, hip, and knee pain. He was walking down a slippery stairs when he fell and states he did the splits and now has pain with any range of motion and ambulation. He does have some tingling in his medial right thigh. He denies any head, neck or back pain. He did not lose consciousness and has full recall. MD complaint: hip injury and knee injury Onset (ago): hour(s) Type of Injury: hyperextension Place: home Severity: moderate Relieving factors: immobilization and rest Exacerbating factors: weight bearing and movement Context: fall and direct blow Associated symptoms: snap/pop sensation and able to partially bear weight Other symptoms: none Related Data Home Medications Medication Instructions Recorded Confirmed Lancet: Device 1 ea MISCELLANEOUS DIRECTED 09/19/18 02/15/19 [Glucometer ] 1 ea MISCELLANEOUS DIRECTED 09/19/18 02/15/19 Previous Rx's Medication Instructions Recorded insulin regular hum U-500 conc 50 unit SUBCUT .COMPLEX #3 ml 11/07/18 BD Pen [place] #100 each 11/08/18 trazodone 100 mg tablet 200 mg PO BEDTIME #180 tab 12/04/18 losartan 50 mg tablet 50 mg PO BID #180 tab 01/14/19 blood sugar diagnostic #100 each 01/21/19 atorvastatin 10 mg tablet 10 mg PO BEDTIME #90 tab 02/19/19 prazosin 5 mg capsule 10 mg PO BEDTIME #180 cap 02/19/19 propranolol 40 mg tablet 40 mg PO TID #270 tab 02/19/19 ziprasidone HCl 60 mg capsule 60 mg PO BID #180 cap 02/19/19 insulin glargine 100 unit/mL (3 See Rx Instructions SUBCUT TID-QID 03/05/19 mL) subcutaneous pen #15 ml fluoxetine 40 mg capsule See Rx Instructions .ROUTE 05/20/19 .COMPLEX #60 capsule metformin 500 mg PO BID #20 tab 03/07/20 cyclobenzaprine 10 mg PO TID PRN #14 tab 07/06/20 hydrocodone-acetaminophen 1 tab PO Q4-6H PRN #10 tab 07/06/20 Allergies Allergy/AdvReac Type Severity Reaction Status Date / Time No Known Drug Allergies Allergy Verified 07/06/20 10:27 Review of Systems Constitutional Constitutional: Denies chills, Denies fatigue, Denies fever(s), Denies frequent falls, Denies lethargy and Denies weakness Eyes Eyes: Denies change in vision, Denies eye discharge, Denies irritation and Denies loss of vision ENT Ears, Nose, Mouth, and Throat: Denies change in voice, Denies dizziness, Denies neck pain, Denies sore throat and Denies throat swelling Cardiovascular Cardiovascular: Denies chest pain, Denies irregular heart rhythm, Denies lightheadedness, Denies palpitations, Denies dyspnea, Denies dyspnea on exertion and Denies orthopnea Respiratory Respiratory: Denies cough, Denies dyspnea, Denies dyspnea on exertion and Denies wheezing Gastrointestinal Gastrointestinal: Denies abdominal pain, Denies change in bowel habits, Denies diarrhea, Denies nausea and Denies vomiting Musculoskeletal Musculoskeletal: Reports abnormal gait, Reports arthralgias, Denies neck pain and Denies numbness Integumentary/Breasts Skin/Breast: Denies pruritus, Denies erythema, Denies rash and Denies wounds Neurologic Neurologic: Reports abnormal gait, Denies behavioral changes, Denies confusion, Denies dizziness, Denies frequent falls, Denies loss of vision, Denies numbness and Denies weakness Psychiatric Psychiatric: Denies anxiety, Denies behavioral changes, Denies confusion, Denies depression, Denies homicidal ideation and Denies suicidal ideation Endocrine Endocrine: Denies fatigue, Denies flushing and Denies palpitations Hematologic/Lymphatic Hematologic/Lymphatic: Denies easy bruising Allergic/Immunologic Allergic/Immunologic: Denies urticaria, Denies throat swelling and Denies wh eezing Patient History Medical History (Updated 07/06/20 @ 11:54 by Marc Varma DO) Anxiety Bipolar affective disorder Chronic back pain Colitis Depression Diabetes, type 1.5, controlled, managed as type 2 Erectile dysfunction Hyperlipidemia Hypertension Low testosterone in male Mixed hyperlipidemia Morbid obesity with BMI of 50.0-59.9, adult PTSD (post-traumatic stress disorder) Schizophrenia Type II diabetes mellitus, well controlled Vitamin D deficiency Surgical History Hx of discectomy (2009) Hx of surgical procedure (2005) Family History Father Hyperlipidemia Mother Diabetes mellitus Hypertension Hyperlipidemia Grandfather Cancer Grandmother Cancer Social History household members: family Smoking Status: Never smoker second hand exposure: No alcohol intake: never substance use type: does not use additional social history: No current social issues Smoking Status: Never smoker alcohol intake frequency: holidays/special occasions only Substance Use Type: does not use Exam Narrative Exam Narrative: GENERAL: [39] year old patient appears stated age. Well- nourished, well-developed patient, in mild distress. HEAD: Atraumatic. Normocephalic. EYES: Pupils equal round and reactive. Extraocular motions intact. No scleral icterus. No injection or drainage. ENT: Nose without bleeding, purulent drainage. Throat without erythema, tonsillar hypertrophy or exudate. Airway patent. NECK: Trachea midline. Non tender CARDIOVASCULAR: Regular rate and rhythm without murmurs, gallops, or rubs. RESPIRATORY: Clear to auscultation. Breath sounds equal bilaterally. No wheezes, rales, or rhonchi. GASTROINTESTINAL: Abdomen soft, non-tender, nondistended. EXTREMITIES: Pain on palpation of medial thigh and right hip. Full ROM. Pain on medial aspect of R knee, no obvious deformity, effusion or ligamentous instability. BACK: Nontender without deformity or crepitance. No flank tenderness. NEURO: AOx3. SKIN: No rash or erythema of visible areas Initial Vital Signs Initial Vital Signs: Vital Signs Temperature 97.2 F L 07/06/20 10:23 Pulse Rate 86 07/06/20 10:23 Respiratory Rate 18 07/06/20 10:23 Blood Pressure 163/111 H 07/06/20 10:23 Pulse Oximetry 100 07/06/20 10:23 Course Orders Ordered: ED Orders 07/06/20 10:26 XR hip w pel if done RT 2V Stat XR knee RT 3V Stat 07/06/20 11:02 CT pelvis wo con Stat Vital Signs Vital signs: Vital Signs - 8 hr 07/06/20 10:23 07/06/20 11:58 Temperature 97.2 F L Pulse Rate 86 71 Respiratory Rate 18 22 Blood Pressure 163/111 H 147/64 H Pulse Oximetry 100 98 MDM - Extremity Injury (Lower) Imaging Data Extremity x-ray #1: Radiologist's Impression: Gustavo Mack 39 M [address] [id number] ReportSigned Patient: Gustavo Mack SMR#: [id number]: 1980Acct:[id number]/Sex: 39 / MDate of Service: 07/06/20Loc: EDAccession Number: [id number] Procedure: XR knee RT 3V Ordering Provider: Marc Varma D.O. PROCEDURE: XR KNEE RT 3V INDICATIONS: fall with severe knee pain TECHNIQUE: 3 views of the knee were acquired. COMPARISON: [facility], CR, XR KNEE LT 3V, 11/17/2017, 9:04. FINDINGS: Bones: No fractures or dislocations. No suspicious bony lesions. Mild degenerative change. Soft tissues: No joint effusion. No suspicious soft tissue calcifications. IMPRESSION: Mild right knee degenerative change. No evidence acute bony abnormality of the right knee. If clinical suspicion and/or symptoms persist, further assessment with repeat plain films, or advanced imaging (e.g., CT, MRI, or bone scan) may be helpful for further assessment. Dictated by: Naresh Chen M.D. on 07/06/2020 at 10:53 Approved by: Naresh Chen M.D. on 07/06/2020 at 10:53 Pelvis Hip: Radiologist's Impression: Chart Viewer Diagnostics DATE TYPE STATUS REF RANGE/AUTHOR Rahel Today 11:02 Cali Gupta Today 10:26 Naresh Chen Today 10:26 Naresh Chen 03/05/20 18:59 Cydney Noel 05/02/19 19:57 Arsen Rosenbaum 02/13/19 19:40 Kole Bhagat 02/13/19 18:46 Kole Bhagat 12/15/18 21:32 Manuel Warner 11/22/18 07:09 Mahi Ham 11/22/18 04:13 09/20/18 00:00 Cali Gupta 09/19/18 08:57 Mahi Ham 09/19/18 00:00 Kole Bhagat 11/17/17 09:05 Laci Garrett Joseph S 39, M1980 [facility], [facility] ED R04 185.42cm 195.045kg BMI: 56.7kg/m? Extremity Injury, Lower Search Chart PrimaryCare Pt Dismssed/Clinic Total Pending Discharge NonFormulary Not Included in Conflicts ONSET Today 11:58 Gustavo Mack 39 M [address] [id number] ReportSigned Patient: Gustavo Mack [facility]#: [id number]: 1980Acct:[id number]/Sex: 39 / MDate of Service: 07/06/20Loc: EDAccession Number: [id number] Procedure: XR hip w pel if done RT 2V Ordering Provider: Marc Varma D.O. PROCEDURE: XR HIP W PEL IF DONE RT 2V INDICATIONS: fall with severe hip pain TECHNIQUE: AP pelvis with lateral view(s) of the right hip COMPARISON: None. FINDINGS: Bones: Question posterior right acetabular osteophyte versus acetabular fracture. No other fractures or dislocations. Pelvic ring appears intact. No suspicious bony lesions. Soft tissues: The visualized bowel gas pattern is normal. No suspicious soft tissue calcifications. IMPRESSION: Question posterior right acetabular osteophyte versus acetabular fracture. If suspect fracture, recommend CT pelvis and right hip. Dictated by: Naresh Chen M.D. on 07/06/2020 at 10:51 Approved by: Naresh Chen M.D. on 07/06/2020 at 10:53 CT scan - abdomen/pelvis: Radiologist's Impression: Gustavo Mack 39 M [address] [id number] Scan ReportSigned Patient: Gustavo Mack [facility]#: [id number]: 1980Acct:[id number]/Sex: 39 / MDate of Service: 07/06/20Loc: EDAccession Number: [id number] Procedure: CT pelvis wo con Ordering Provider: Marc Varma D.O. PROCEDURE: CT PEL WO CON INDICATIONS: severe R hip pain after fall, acetabular abnormality on xray TECHNIQUE: Noncontrast 3 mm axial sections acquired through the bony pelvis, with coronal and sagittal reformatting. COMPARISON: [facility], CR, XR HIP W PEL IF DONE RT 2V, 07/06/2020, 10:28. FINDINGS: Image quality: Excellent. Bones: No fracture or dislocation. There is mild subchondral cystic change along the right superior acetabular rim laterally compatible with mild right hip joint degeneration. There is also minimal subchondral cystic change laterally in the left superior acetabular rim. Mild axial joint space narrowing is also demonstrated in the hips bilaterally. The visualized lower lumbar spine demonstrates mild to moderate degenerative disc disease at L5-S1. There is also mild facet arthropathy in the lower lumbar spine. Soft tissues: No soft tissue hematoma collections. No joint effusions in the hips. No intraperitoneal free fluid within the visualized pelvis. IMPRESSION: 1. No fracture or dislocation. 2. Mild osteoarthritic changes in the hips including subchondral cystic changes along the superior acetabular rim. Dictated by: Cali Gupta M.D. on 07/06/2020 at 11:31 Approved by: Cali Gupta M.D. on 07/06/2020 at 11:41 [facility] Narrative Medical decision making narrative: Reassuring imaging, patient able to ambulate on his own out of department, refused crutches. Return precautions given, questions answered to his apparent satisfaction Discharge Plan Departure Patient Disposition: Home Clinical Impression: Hip strain Qualifiers: Encounter type: initial encounter Laterality: right Qualified Code(s): S76.011A - Strain of muscle, fascia and tendon of right hip, initial encounter Knee sprain Qualifiers: Encounter type: initial encounter Involved ligament of knee: unspecified ligament Laterality: right Qualified Code(s): S83.91XA - Sprain of unspecified site of right knee, initial encounter Muscle strain of right thigh Qualifiers: Encounter type: initial encounter Qualified Code(s): S76.911A - Strain of unspecified muscles, fascia and tendons at thigh level, right thigh, initial encounter Instructions: DI for Knee Sprain, DI for Groin Strain Activity Restrictions/Additional Instructions: *You have been diagnosed with [fall with soft tissue injuries of hip, thigh and knee. X-rays and CT scan are reassuring and demonstrate no fracture or dislocation] *What to do: *Take medications as directed: Prescriptions electronically transmitted to [facility] at your request *Follow up with your primary care provider in 2-3 days, call for an appointment. Let them know you were seen in the Emergency Department and that we ask that you be seen in follow up. Wear the knee immobilizer when ambulating at least until you follow with Dr. Matta. It would be [place] to remove it a few times a day while sitting or laying to take your knee through some range of mo tion so it does not become stiff. *Return to ER if you should have any new, worsening or concerning symptoms Prescriptions: New cyclobenzaprine 10 mg tablet 10 mg PO TID PRN (Reason: muscle spasm) Qty: 14 RF: 0 hydrocodone-acetaminophen 5-325 mg tablet 1 tab PO Q4-6H PRN (Reason: pain) Qty: 10 RF: 0 No Action Humulin R U-500 (Conc) Kwikpen 500 unit/mL (3 mL) insulin pen 50 unit SUBCUT .COMPLEX Qty: 3 RF: 3 (DME) BD Pen [place] 0 .Route .MEDSUPPLY Qty: 100 RF: 3 trazodone 100 mg tablet 200 mg PO BEDTIME Qty: 180 RF: 3 losartan [Cozaar] 50 mg tablet 50 mg PO BID Qty: 180 RF: 0 (DME) blood sugar diagnostic strip See Dose Instructions .ROUTE .MEDSUPPLY Qty: 100 RF: 3 propranolol 40 mg tablet 40 mg PO TID Qty: 270 RF: 3 ziprasidone HCl [Geodon] 60 mg capsule 60 mg PO BID Qty: 180 RF: 3 prazosin [Minipress] 5 mg capsule 10 mg PO BEDTIME Qty: 180 RF: 3 atorvastatin [Lipitor] 10 mg tablet 10 mg PO BEDTIME Qty: 90 RF: 3 Basaglar KwikPen U-100 Insulin 100 unit/mL (3 mL) insulin pen See Rx Instructions subcut TID-QID Qty: 15 RF: 3 fluoxetine 40 mg capsule See Rx Instructions .ROUTE .COMPLEX Qty: 60 RF: 3 Lancet: Device 1 ea miscellaneous DIRECTED RF: 0 [Glucometer ] 1 ea miscellaneous DIRECTED RF: 0 metformin 500 mg tablet 500 mg PO BID Qty: 20 RF: 0 Referrals: Gucci Matta MD [Primary Care Provider] -
--- NOTE | 2020-07-06 11:02 | DI.CT.S_ITS ---
PROCEDURE: CT PEL WO CON INDICATIONS: severe R hip pain after fall, acetabular abnormality on xray TECHNIQUE: Noncontrast 3 mm axial sections acquired through the bony pelvis, with coronal and sagittal reformatting. COMPARISON: [facility], , XR HIP W PEL IF DONE RT 2V, 07/06/2020, 10:28. FINDINGS: Image quality: Excellent. Bones: No fracture or dislocation. There is mild subchondral cystic change along the right superior acetabular rim laterally compatible with mild right hip joint degeneration. There is also minimal subchondral cystic change laterally in the left superior acetabular rim. Mild axial joint space narrowing is also demonstrated in the hips bilaterally. The visualized lower lumbar spine demonstrates mild to moderate degenerative disc disease at L5-S1. There is also mild facet arthropathy in the lower lumbar spine. Soft tissues: No soft tissue hematoma collections. No joint effusions in the hips. No intraperitoneal free fluid within the visualized pelvis. IMPRESSION: 1. No fracture or dislocation. 2. Mild osteoarthritic changes in the hips including subchondral cystic changes along the superior acetabular rim. Dictated by: Cali Gupta M.D. on 07/06/2020 at 11:31 Approved by: Cali Gupta M.D. on 07/06/2020 at 11:41
--- NOTE | 2020-07-06 11:37 | PC.NURSE ---
pt states he slipped on the frosted patio. did the splits and has groin pain.
[2020-07-06 11:58] VITALS: BP 147/64; PULSE 71; RESP 22; O2SAT 98
== END 2020-07-06 12:21 | disposition home or self-care (01) ==
PROVIDERS: Emergency Provider Emergency Medicine; PCP Internal Medicine
DX: S76.011A Strain of muscle, fascia and tendon of right hip, initial encounter (principal); S83.91XA Sprain of unspecified site of right knee, initial encounter; S76.911A Strain of unspecified muscles, fascia and tendons at thigh level, right thigh, initial encounter; W01.0XXA Fall on same level from slipping, tripping and stumbling without subsequent striking against object, initial encounter; E78.5 Hyperlipidemia, unspecified; I10 Essential (primary) hypertension; E11.9 Type 2 diabetes mellitus without complications; Z79.4 Long term (current) use of insulin; F43.10 Post-traumatic stress disorder, unspecified
CPT/HCPCS: 72192; 73502; 73562; 99284

== ENCOUNTER 2020-10-24 15:40 | Emergency (ER) | payer OTHER, SELFPAY ==
[2018-09-21 09:16] VITALS: BMI 51.2
[2020-10-24] VITALS (12 sets, daily range): BP systolic 109–181; BP diastolic 54–78; PULSE 68–77; RESP 16–20; TEMP 36.2–36.4; O2SAT 96–99; BMI 60.7
[2020-10-24] MEDS: SODIUM CHLORIDE 0.9% 1,000 ML 999 ML IV (15:58)
[2020-10-24] MEDS: ONDANSETRON 4 MG/2 ML INJ IV (15:58)
[2020-10-24] MEDS: MECLIZINE HCL 12.5 MG TABLET 25 MG PO (15:58)
[2020-10-24 16:23] LABS: Add Manual Diff / Slide Review NO; Basophils Absolute Auto 100 /uL (0-100); Basophils Percent Auto 1.4 % (0-2); Eosinophils Absolute Auto 0 /uL (0-450); Eosinophils Percent Auto 0.6 % (2-4); Hematocrit 40.1 % (41-53); Hemoglobin 13.5 g/dL (13.5-17.5); Lymphocytes Absolute Auto 2500 /uL (1100-4500); Lymphocytes Percent Auto 37.2 % (25-40); Mean Corpuscular HGB Conc 33.8 % (30-36); Mean Corpuscular Hemoglobin 30.6 PG (26-34); Mean Corpuscular Volume 90.5 fL (80-100); Monocytes Absolute Auto 500 /uL (0-900); Monocytes Percent Auto 7.2 % (3-14); Neutrophils Absolute Auto 3600 /uL (1500-7000); Neutrophils Percent Auto 53.6 % (50-75); Platelet Count 202 X10^3/uL (150-400); Red Blood Cell Count 4.43 X10^6/uL (4.5-5.9); Red Cell Distribution Width 15.2 % (11.6-14.8); White Blood Cell Count 6.8 X10^3/uL (4.5-11.0)
[2020-10-24 16:34] LABS: Alanine Aminotransferase 40 IU/L (<50); Albumin 4.4 g/dL (3.5-5.0); Albumin Globulin Ratio 1.5 (1.0-2.8); Alkaline Phosphatase 107 U/L (38-126); Aspartate Aminotransferase 36 IU/L (17-59); Bilirubin Total 0.3 mg/dL (0.2-1.3); Blood Urea Nitrogen 12 mg/dL (9-20); Calcium 9.5 mg/dL (8.4-10.2); Carbon Dioxide 28 mmol/L (22-32); Chloride 96 mmol/L (98-107); Creatine Kinase 184 U/L (55-170); Estimated Glomerular Filt Rate > 60.0 mL/min (>60); Glucose 229 mg/dL (70-100); HEMOLYSIS < 15 (0-50); Potassium 4.1 mmol/L (3.4-5.1); Sodium 132 mmol/L (137-145); Total Protein 7.4 g/dL (6.3-8.2)
--- NOTE | 2020-10-24 16:39 | PC.NURSE ---
Awoke today with severe dizziness. Improves with rest. Worsens with movement, position changes, and turning head. Nausea also present. States he is diabetic (not sure of type 1 or 2). Reports having trouble controlling high blood sugars.
[2020-10-24 16:45] LABS: Troponin I < 0.012 ng/mL (0.01-0.034)
--- NOTE | 2020-10-24 16:54 | ED.DIZZY ---
HPI - Dizziness <Dahiana Laureano, DO - Last Filed: 10/30/20 14:16> General Chief Complaint: Dizziness Stated Complaint: severe dizziness Time Seen by Provider: 10/24/20 16:25 Source: patient Mode of arrival: Ambulatory Limitations: no limitations History of Present Illness HPI Narrative: Patient is a 39-year-old male with history of diabetes hyperlipidemia and morbid obesity presenting today with dizziness. He says he has felt that coming on maybe for couple of days however he woke up this morning and is extremely dizzy. He says it is significantly worse when he is trying to lay down or stand up. She denies any weakness numbness or tingling. He gets spells where he is extremely dizzy and has while he has been in the emergency department he feels nauseous he has not vomited. He denies any chest pain or palpitations. MD complaint: dizziness Timing: sudden onset Description: room spinning History of similar episodes: No History of trauma: No Related Data Home Medications Medication Instructions Recorded Confirmed Lancet: Device 1 ea MISCELLANEOUS DIRECTED 09/19/18 02/15/19 [Glucometer ] 1 ea MISCELLANEOUS DIRECTED 09/19/18 02/15/19 Previous Rx's Medication Instructions Recorded insulin regular hum U-500 conc 50 unit SUBCUT .COMPLEX #3 ml 11/07/18 BD Pen [place] #100 each 11/08/18 trazodone 100 mg tablet 200 mg PO BEDTIME #180 tab 12/04/18 losartan 50 mg tablet 50 mg PO BID #180 tab 01/14/19 blood sugar diagnostic #100 each 01/21/19 atorvastatin 10 mg tablet 10 mg PO BEDTIME #90 tab 02/19/19 prazosin 5 mg capsule 10 mg PO BEDTIME #180 cap 02/19/19 propranolol 40 mg tablet 40 mg PO TID #270 tab 02/19/19 ziprasidone HCl 60 mg capsule 60 mg PO BID #180 cap 02/19/19 insulin glargine 100 unit/mL (3 See Rx Instructions SUBCUT TID-QID 03/05/19 mL) subcutaneous pen #15 ml fluoxetine 40 mg capsule See Rx Instructions .ROUTE 05/20/19 .COMPLEX #60 capsule metformin 500 mg PO BID #20 tab 09/14/19 cyclobenzaprine 10 mg PO TID PRN #14 tab 12/28/20 hydrocodone-acetaminophen 1 tab PO Q4-6H PRN #10 tab 07/06/20 meclizine 25 mg PO BID-TID PRN #14 tab 10/24/20 Allergies Allergy/AdvReac Type Severity Reaction Status Date / Time No Known Drug Allergies Allergy Verified 10/24/20 15:43 Review of Systems <Dahiana Laureano DO - Last Filed: 10/30/20 14:16> Review of Systems ROS Unobtainable: All systems reviewed & are unremarkable except as noted in HPI and below Constitutional Constitutional: Denies chills, Denies fever(s), Denies lethargy and Denies weakness Cardiovascular Cardiovascular: Denies chest pain, Denies irregular heart rhythm, Reports lightheadedness, Denies palpitations, Denies dyspnea, Denies dyspnea on exertion and Denies orthopnea Respiratory Respiratory: Denies cough, Denies dyspnea, Denies dyspnea on exertion and Denies wheezing Gastrointestinal Gastrointestinal: Denies abdominal pain, Denies change in bowel habits, Denies diarrhea, Denies nausea and Denies vomiting Integumentary/Breasts Skin/Breast: Denies pruritus, Denies erythema, Denies rash and Denies wounds Neurologic Neurologic: Denies weakness Endocrine Endocrine: Denies palpitations Allergic/Immunologic Allergic/Immunologic: Denies wheezing Patient History <Dahiana Laureano DO - Last Filed: 10/30/20 14:16> Medical History (Updated 10/24/20 @ 19:37 by Marc Varma DO) Anxiety Bipolar affective disorder Chronic back pain Colitis Depression Diabetes, type 1.5, controlled, managed as type 2 Erectile dysfunction Hyperlipidemia Hypertension Low testosterone in male Mixed hyperlipidemia Morbid obesity with BMI of 50.0-59.9, adult PTSD (post-traumatic stress disorder) Schizophrenia Type II diabetes mellitus, well controlled Vitamin D deficiency Surgical History Hx of discectomy (2009) Hx of surgical procedure (2005) Family History Father Hyperlipidemia Mother Diabetes mellitus Hypertension Hyperlipidemia Grandfather Cancer Grandmother Cancer Social History household members: family Smoking Status: Never smoker second hand exposure: No alcohol intake: never substance use type: does not use additional social history: No current social issues Smoking Status: Never smoker alcohol intake frequency: holidays/special occasions only Substance Use Type: does not use Exam <Dahiana Laureano DO - Last Filed: 10/30/20 14:16> Initial Vital Signs Initial Vital Signs: Vital Signs Temperature 97.2 F L 10/24/20 15:43 Pulse Rate 77 10/24/20 15:43 Respiratory Rate 18 10/24/20 15:43 Blood Pressure 181/78 H 10/24/20 15:43 Pulse Oximetry 98 10/24/20 15:43 GENERAL: Alert male lying flat BMI 60 HEENT: Head atraumatic,EOMI, no nystagmus pupils reactive, face symmetric, moist mucous membranes CARDIOVASCULAR: Regular rate and rhythm without murmurs, rubs or gallops. RESPIRATORY: Breath sounds equal bilaterally, no wheezes rales or rhonchi. ABDOMEN: Soft, nontender. Normoactive bowel sounds all 4 quadrants. No guarding or rebound. EXTREMITIES: Normal range of motion, no clubbing or edema. Neurovascularly intact NEUROLOGICAL: Alert and oriented x4.Normal gait and speech. Cranial nerves II through XII grossly intact. Good [id number], strength equal bilaterally, no dysarthria or aphasia, sensation in tact to soft touch bilaterally, no visual changes, no facial droop SKIN: Warm, dry, no laceration, no petechiae, no rashes or lesions. <Marc Varma, DO - Last Filed: 10/24/20 22:44> Initial Vital Signs Initial Vital Signs: Vital Signs Temperature 97.2 F L 10/24/20 15:43 Pulse Rate 77 10/24/20 15:43 Respiratory Rate 18 10/24/20 15:43 Blood Pressure 181/78 H 10/24/20 15:43 Pulse Oximetry 98 10/24/20 15:43 Scores <Dahiana Laureano, DO - Last Filed: 10/30/20 14:16> NIH Stroke Scale Level of Conciousness: Alert, keenly responsive Ask month/age: Answers both questions correctly. Open/close eyes, close hand: Performs both tasks correctly Best gaze horizontal: Normal Visual parra: No visual loss Facial palsy: Normal symetrical movement Left arm drift: No drift for full 10 sec Right arm drift: No drift for full 10 sec Left leg drift: No drift for full 5 sec Right leg drift: No drift for full 5 sec Limb ataxia: Absent Sensory on face/arms/legs: Normal, no sensory loss Best language: No aphasia, normal Dysarthria: Normal Extinction or inattention: No abnormality Total NIH Stroke scale score: 0 Course <Dahiana Laureano DO - Last Filed: 10/30/20 14:16> Orders Ordered: Discontinued Medications Sodium Chloride (Normal Saline 0.9%) 1,000 mls @ 150 mls/hr IV CONT PATO Last Infusion: 10/24/20 18:13 Dose: 0 mls/hr Documented by: Admin: 10/24/20 15:58 Dose: 999 mls/hr Documented by: QASIM Lorazepam (Lorazepam 2 Mg/Ml Inj) 1 mg IV NOW ONE Stop: 10/24/20 17:18 Last Admin: 10/24/20 17:23 Dose: 1 mg Documented by: BRANDON Lorazepam (Lorazepam 2 Mg/Ml Inj) 1 mg IV NOW ONE Stop: 10/24/20 18:43 Last Admin: 10/24/20 18:47 Dose: 1 mg Documented by: BRANDON Meclizine HCl (Meclizine Hcl 12.5 Mg Tablet) 25 mg PO NOW ONE Stop: 10/24/20 15:48 Last Admin: 10/24/20 15:58 Dose: 25 mg Documented by: QASIM Ondansetron HCl (Ondansetron 4 Mg/2 Ml Inj) 4 mg IV NOW ONE Stop: 10/24/20 15:48 Last Admin: 10/24/20 15:58 Dose: 4 mg Documented by: QASIM Vital Signs Vital signs: Vital Signs - 8 hr 10/24/20 15:43 10/24/20 16:07 10/24/20 16:11 Temperature 97.2 F L Pulse Rate 77 73 72 Respiratory Rate 18 Blood Pressure 181/78 H 115/57 L Pulse Oximetry 98 98 98 10/24/20 16:30 10/24/20 17:00 10/24/20 17:49 Temperature Pulse Rate 68 68 72 Respiratory Rate 20 Blood Pressure 109/58 L 109/54 L Pulse Oximetry 98 97 10/24/20 18:00 10/24/20 18:08 10/24/20 18:30 Temperature Pulse Rate 72 74 71 Respiratory Rate 16 Blood Pressure 140/69 141/77 H Pulse Oximetry 97 99 97 10/24/20 19:00 10/24/20 19:01 10/24/20 19:50 Temperature 97.6 F Pulse Rate 74 73 75 Respiratory Rate 20 Blood Pressure 133/56 L 141/74 H Pulse Oximetry 97 96 97 <Marc Zhouan, DO - Last Filed: 10/24/20 22:44> Course Course Narrative: Patient received in sign-out from Dr. Laureano. Plan was to get results of CTA and response to medications with likely discharge. CTA was reviewed and patient was feeling near complete resolution of symptoms and requesting DC. I was unable to get in to see patient prior to leaving to perform an additional exam. Orders Ordered: Discontinued Medications Sodium Chloride (Normal Saline 0.9%) 1,000 mls @ 150 mls/hr IV CONT PATO Last Infusion: 10/24/20 18:13 Dose: 0 mls/hr Documented by: Admin: 10/24/20 15:58 Dose: 999 mls/hr Documented by: QASIM Lorazepam (Lorazepam 2 Mg/Ml Inj) 1 mg IV NOW ONE Stop: 10/24/20 17:18 Last Admin: 10/24/20 17:23 Dose: 1 mg Documented by: BRANDON Lorazepam (Lorazepam 2 Mg/Ml Inj) 1 mg IV NOW ONE Stop: 10/24/20 18:43 Last Admin: 10/24/20 18:47 Dose: 1 mg Documented by: BRANDON Meclizine HCl (Meclizine Hcl 12.5 Mg Tablet) 25 mg PO NOW ONE Stop: 10/24/20 15:48 Last Admin: 10/24/20 15:58 Dose: 25 mg Documented by: QASIM Ondansetron HCl (Ondansetron 4 Mg/2 Ml Inj) 4 mg IV NOW ONE Stop: 10/24/20 15:48 Last Admin: 10/24/20 15:58 Dose: 4 mg Documented by: QASIM Vital Signs Vital signs: Vital Signs - 8 hr 10/24/20 15:43 10/24/20 16:07 10/24/20 16:11 Temperature 97.2 F L Pulse Rate 77 73 72 Respiratory Rate 18 Blood Pressure 181/78 H 115/57 L Pulse Oximetry 98 98 98 10/24/20 16:30 10/24/20 17:00 10/24/20 17:49 Temperature Pulse Rate 68 68 72 Respiratory Rate 20 Blood Pressure 109/58 L 109/54 L Pulse Oximetry 98 97 10/24/20 18:00 10/24/20 18:08 10/24/20 18:30 Temperature Pulse Rate 72 74 71 Respiratory Rate 16 Blood Pressure 140/69 141/77 H Pulse Oximetry 97 99 97 10/24/20 19:00 10/24/20 19:01 10/24/20 19:50 Temperature 97.6 F Pulse Rate 74 73 75 Respiratory Rate 20 Blood Pressure 133/56 L 141/74 H Pulse Oximetry 97 96 97 MDM - Dizziness <Dahiana Laureano DO - Last Filed: 10/30/20 14:16> Lab Data Attestation: I reviewed the patient's lab results. Result diagrams: 10/24/20 15:55 10/24/20 15:55 Labs: Lab Results 10/24/20 10/24/20 Range/Units 15:55 15:55 WBC 6.8 (4.5-11.0) X10^3/uL RBC 4.43 L (4.5-5.9) X10^6/uL Hgb 13.5 (13.5-17.5) g/dL Hct 40.1 L (41-53) % MCV 90.5 (80-100) fL MCH 30.6 (26-34) PG MCHC 33.8 (30-36) % RDW 15.2 H (11.6-14.8) % Plt Count 202 (150-400) X10^3/uL Neut % (Auto) 53.6 (50-75) % Lymph % (Auto) 37.2 (25-40) % [place] % (Auto) 7.2 (3-14) % Eos % (Auto) 0.6 L (2-4) % Baso % (Auto) 1.4 (0-2) % Neut # (Auto) 3600 (4770-6897) /uL Lymph # (Auto) 2500 (8053-9142) /uL [place] # (Auto) 500 (0-900) /uL Eos # (Auto) 0 (0-450) /uL Baso # (Auto) 100 (0-100) /uL Sodium 132 L (137-145) mmol/L Potassium 4.1 (3.4-5.1) mmol/L Chloride 96 L (98-107) mmol/L Carbon Dioxide 28 (22-32) mmol/L BUN 12 (9-20) mg/dL Creatinine 0.75 (0.66-1.25) mg/dL Estimated GFR > 60.0 (>60) mL/min BUN/Creatinine Ratio 16.0 (6-22) Glucose 229 H (70-100) mg/dL Calcium 9.5 (8.4-10.2) mg/dL Total Bilirubin 0.3 (0.2-1.3) mg/dL AST 36 (17-59) IU/L ALT 40 (<50) IU/L Alkaline Phosphatase 107 (38-126) U/L Total Creatine Kinase 184 H (55-170) U/L CK-MB (CK-2) 1.90 (<2.37) ng/mL CK-MB (CK-2) Rel Index 1.0 L (1.5-5.0) % Troponin I < 0.012 (0.01-0.034) ng/mL Total Protein 7.4 (6.3-8.2) g/dL Albumin 4.4 (3.5-5.0) g/dL Globulin 3.0 (1.7-4.1) g/dL Albumin/Globulin Ratio 1.5 (1.0-2.8) Imaging Data CTA - brain/neck: Radiologist's Impression: PROCEDURE: CT ANGIO HEAD AND NECK INDICATIONS: very dizzy TECHNIQUE: Pre-contrast 4.5 mm thick sections acquired from the foramen magnum to the vertex. After the administration of intravenous contrast, 1 mm thick sections acquired from the aortic arch through the [place] of [place]. Post-contrast 4.5 mm thick sections then re-acquired from the foramen magnum to the vertex. 3-dimensional fyvgcal-jhmcmydqn-btiircgjlc (MIP) and/or volume rendering reformats were acquired of the central intracranial vasculature and neck separately. COMPARISON: None. FINDINGS: Image quality: Degraded by patient body habitus particularly at the level of the upper chest. BRAIN: CSF spaces: Ventricles are normal in size and shape. Basal cisterns are patent. Small right parietal convexity arachnoid cyst. Brain: No midline shift. No intracranial bleeds or masses. Alexandra-white matter interface appears intact. Skull and face: Calvarium and facial bones appear intact, without suspicious lesions. Orbits appear normal. Sinuses: Sinuses and mastoids are clear. HEAD CT ANGIOGRAPHY: Anterior circulation: Intracranial internal carotid arteries are normal in size and flow. The flow within the paired anterior cerebral arteries is normal and symmetric. The flow within the middle cerebral arteries is normal and symmetric. The anterior communicating artery is seen. No aneurysms are seen. Posterior circulation: Visualized portions of the vertebral arteries demonstrate normal caliber, and join to form a normal appearing basilar artery. Flow within the posterior cerebral arteries is normal and symmetric. Left posterior cerebral artery has a origin. No aneurysms are seen. Dural sinuses demonstrate normal postcontrast enhancement. NECK CT ANGIOGRAPHY: Carotid system: The great vessels demonstrate a conventional anatomy as they arise from the aortic arch. The origins of the common carotid arteries appear patent. The common carotid arteries demonstrate normal caliber and courses. The bifurcation regions are both widely patent. The internal carotid arteries demonstrate normal calibers and courses. Posterior circulation: The origins of the vertebral arteries are not visualized due to body habitus and cannot be evaluated. The more superior extracranial portions of both vertebral arteries also demonstrate normal courses and calibers. They join to form a normal appearing basilar artery. Soft tissues: Visualized neck soft tissues demonstrate no suspicious abnormalities. Bones: No suspicious bony lesions. Visualized cervical spine appears normally aligned. IMPRESSION: 1. Image quality limited secondary to patient body habitus. 2. No acute intracranial disease process. 3. No large vessel occlusion, hemodynamically significant vascular stenosis, vascular dissection or aneurysm involving well visualized vasculature. Any quantitative measurements of stenosis were performed using NASCET criteria. Dictated by: Mahi Ham MD, PhD on 10/24/2020 at 18:13 ECG Data Attestation: I personally reviewed and interpreted this ECG as follows: Prior ECG tracings: available for review Interpretation: Sinus rhythm rate 70 p.r. interval 208 QRS [address] changes no T-wave inversions new 1st degree AV block [facility] Narrative Medical decision making narrative: Patient's symptoms are significantly worse with movement I suspect that he has vertigo. However he certainly has comorbidities and may have posterior stroke. CT angio does not show any abnormality. Patient has not had really any relief with meclizine or Ativan. Signed out to Dr. Varma <Marc Varma, DO - Last Filed: 10/24/20 22:44> Lab Data Labs: Lab Results 10/24/20 10/24/20 Range/Units 15:55 15:55 WBC 6.8 (4.5-11.0) X10^3/uL RBC 4.43 L (4.5-5.9) X10^6/uL Hgb 13.5 (13.5-17.5) g/dL Hct 40.1 L (41-53) % MCV 90.5 (80-100) fL MCH 30.6 (26-34) PG MCHC 33.8 (30-36) % RDW 15.2 H (11.6-14.8) % Plt Count 202 (150-400) X10^3/uL Neut % (Auto) 53.6 (50-75) % Lymph % (Auto) 37.2 (25-40) % [place] % (Auto) 7.2 (3-14) % Eos % (Auto) 0.6 L (2-4) % Baso % (Auto) 1.4 (0-2) % Neut # (Auto) 3600 (8607-1839) /uL Lymph # (Auto) 2500 (4772-1706) /uL [place] # (Auto) 500 (0-900) /uL Eos # (Auto) 0 (0-450) /uL Baso # (Auto) 100 (0-100) /uL Sodium 132 L (137-145) mmol/L Potassium 4.1 (3.4-5.1) mmol/L Chloride 96 L (98-107) mmol/L Carbon Dioxide 28 (22-32) mmol/L BUN 12 (9-20) mg/dL Creatinine 0.75 (0.66-1.25) mg/dL Estimated GFR > 60.0 (>60) mL/min BUN/Creatinine Ratio 16.0 (6-22) Glucose 229 H (70-100) mg/dL Calcium 9.5 (8.4-10.2) mg/dL Total Bilirubin 0.3 (0.2-1.3) mg/dL AST 36 (17-59) IU/L ALT 40 (<50) IU/L Alkaline Phosphatase 107 (38-126) U/L Total Creatine Kinase 184 H (55-170) U/L CK-MB (CK-2) 1.90 (<2.37) ng/mL CK-MB (CK-2) Rel Index 1.0 L (1.5-5.0) % Troponin I < 0.012 (0.01-0.034) ng/mL Total Protein 7.4 (6.3-8.2) g/dL Albumin 4.4 (3.5-5.0) g/dL Globulin 3.0 (1.7-4.1) g/dL Albumin/Globulin Ratio 1.5 (1.0-2.8) Discharge Plan Departure Patient Disposition: Home Clinical Impression: Dizziness Instructions: DI for Vertigo Activity Restrictions/Additional Instructions: *You have been diagnosed with [dizziness. Your physical exam, story, labs and imaging are very reassuring] *What to do: *Take medications as directed *Follow up with your primary care provider in 2-3 days, call for an appointment. Let them know you were seen in the Emergency Department and that we ask that you be seen in follow up *Return to ER if you should have any new, worsening or concerning symptoms, such as [confusion, altered mental status, blurred vision, trouble with speech, numbness, tingling or weakness, worsening dizziness or other bothersome symptoms] Prescriptions: New meclizine 25 mg tablet 25 mg PO BID-TID PRN (Reason: dizziness) Qty: 14 RF: 0 No Action Humulin R U-500 (Conc) Kwikpen 500 unit/mL (3 mL) insulin pen 50 unit SUBCUT .COMPLEX Qty: 3 RF: 3 (DME) BD Pen Glouster 0 .Route .MEDSUPPLY Qty: 100 RF: 3 trazodone 100 mg tablet 200 mg PO BEDTIME Qty: 180 RF: 3 losartan [Cozaar] 50 mg tablet 50 mg PO BID Qty: 180 RF: 0 (DME) blood sugar diagnostic strip See Dose Instructions .ROUTE .MEDSUPPLY Qty: 100 RF: 3 propranolol 40 mg tablet 40 mg PO TID Qty: 270 RF: 3 ziprasidone HCl [Geodon] 60 mg capsule 60 mg PO BID Qty: 180 RF: 3 prazosin [Minipress] 5 mg capsule 10 mg PO BEDTIME Qty: 180 RF: 3 atorvastatin [Lipitor] 10 mg tablet 10 mg PO BEDTIME Qty: 90 RF: 3 Basaglar KwikPen U-100 Insulin 100 unit/mL (3 mL) insulin pen See Rx Instructions subcut TID-QID Qty: 15 RF: 3 fluoxetine 40 mg capsule See Rx Instructions .ROUTE .COMPLEX Qty: 60 RF: 3 Lancet: Device 1 ea miscellaneous DIRECTED RF: 0 [Glucometer ] 1 ea miscellaneous DIRECTED RF: 0 metformin 500 mg tablet 500 mg PO BID Qty: 20 RF: 0 cyclobenzaprine 10 mg tablet 10 mg PO TID PRN (Reason: muscle spasm) Qty: 14 RF: 0 hydrocodone-acetaminophen 5-325 mg tablet 1 tab PO Q4-6H PRN (Reason: pain) Qty: 10 RF: 0
--- NOTE | 2020-10-24 17:17 | DI.CT.S_ITS ---
PROCEDURE: CT ANGIO HEAD AND NECK INDICATIONS: very dizzy TECHNIQUE: Pre-contrast 4.5 mm thick sections acquired from the foramen magnum to the vertex. After the administration of intravenous contrast, 1 mm thick sections acquired from the aortic arch through the [place] of [place]. Post-contrast 4.5 mm thick sections then re-acquired from the foramen magnum to the vertex. 3-dimensional otvkzzv-cmigbmqqs-yockmlzvfk (MIP) and/or volume rendering reformats were acquired of the central intracranial vasculature and neck separately. COMPARISON: None. FINDINGS: Image quality: Degraded by patient body habitus particularly at the level of the upper chest. BRAIN: CSF spaces: Ventricles are normal in size and shape. Basal cisterns are patent. Small right parietal convexity arachnoid cyst. Brain: No midline shift. No intracranial bleeds or masses. [place]-white matter interface appears intact. Skull and face: Calvarium and facial bones appear intact, without suspicious lesions. Orbits appear normal. Sinuses: Sinuses and mastoids are clear. HEAD CT ANGIOGRAPHY: Anterior circulation: Intracranial internal carotid arteries are normal in size and flow. The flow within the paired anterior cerebral arteries is normal and symmetric. The flow within the middle cerebral arteries is normal and symmetric. The anterior communicating artery is seen. No aneurysms are seen. Posterior circulation: Visualized portions of the vertebral arteries demonstrate normal caliber, and join to form a normal appearing basilar artery. Flow within the posterior cerebral arteries is normal and symmetric. Left posterior cerebral artery has a origin. No aneurysms are seen. Dural sinuses demonstrate normal postcontrast enhancement. NECK CT ANGIOGRAPHY: Carotid system: The great vessels demonstrate a conventional anatomy as they arise from the aortic arch. The origins of the common carotid arteries appear patent. The common carotid arteries demonstrate normal caliber and courses. The bifurcation regions are both widely patent. The internal carotid arteries demonstrate normal calibers and courses. Posterior circulation: The origins of the vertebral arteries are not visualized due to body habitus and cannot be evaluated. The more superior extracranial portions of both vertebral arteries also demonstrate normal courses and calibers. They join to form a normal appearing basilar artery. Soft tissues: Visualized neck soft tissues demonstrate no suspicious abnormalities. Bones: No suspicious bony lesions. Visualized cervical spine appears normally aligned. IMPRESSION: 1. Image quality limited secondary to patient body habitus. 2. No acute intracranial disease process. 3. No large vessel occlusion, hemodynamically significant vascular stenosis, vascular dissection or aneurysm involving well visualized vasculature. Any quantitative measurements of stenosis were performed using NASCET criteria. Dictated by: Mahi Ham MD, PhD on 10/24/2020 at 18:13 Approved by: Mahi Ham MD, PhD on 10/24/2020 at 18:22
[2020-10-24] MEDS: LORazepam 2 MG/ML INJ 1 MG IV ×2 (17:23→18:47)
== END 2020-10-24 19:54 | disposition home or self-care (01) ==
PROVIDERS: Emergency Medicine; Emergency Provider Emergency Medicine
DX: R42 Dizziness and giddiness (principal)
CPT/HCPCS: 70496; 70498; 80053; 82550; 82553; 84484; 85025; 93005; 93010; 96361; 96374; 96375; 96376; 99284; J2060; J2405; Q9967

== ENCOUNTER 2020-12-31 16:01 | Emergency (ER) | payer OTHER, SELFPAY ==
[2018-09-21 09:16] VITALS: BMI 51.2
[2020-12-31 16:35] VITALS: BP 160/91; PULSE 76; RESP 16; TEMP 36.1; O2SAT 97; BMI 59.3
--- NOTE | 2020-12-31 18:42 | DI.CT.S_ITS ---
PROCEDURE: CT KIDNEY URETER BLADDER (KUB) INDICATIONS: ? kindey stone Left TECHNIQUE: Axial sections were acquired from the lung bases to the pubic symphysis. Coronal and sagittal reformats were performed. For radiation dose reduction, the following was used: automated exposure control, adjustment of mA and/or kV according to patient size. COMPARISON:None. FINDINGS: Image quality: Excellent. Lung bases: Unremarkable. Heart: No significant findings. URINARY: Kidneys are normal in size. No hydronephrosis. No nephrolithiasis. Ureters are nondilated with no calcifications. Bladder: Normal wall thickness. No stones. ABDOMEN: Liver: Liver is enlarged and demonstrates diffusely decreased density. Gallbladder: Is grossly unremarkable Biliary ducts: Unremarkable. Pancreas: Unremarkable. Spleen: Unremarkable. Adrenal Glands: Unremarkable. Stomach and Bowel: Stomach, small bowel loops, and colon are unremarkable. Normal appendix. Peritoneum: No abnormal intraperitoneal fluid. No free air. Ventral Wall: No hernia. Abdominal Nodes: No enlarged retroperitoneal or mesenteric lymph nodes. Vessels: Aorta and inferior vena cava are normal in size. PELVIS: Pelvic Organs: Unremarkable. Pelvic Nodes: Unremarkable. Miscellaneous: No inguinal hernias are seen. Bones: Unremarkable. Grossly unremarkable IMPRESSION: 1. No evidence of urinary tract calcification, nor obstruction. 2. Hepatic steatosis. 3. Normal appendix. Dictated by: Lina Frank M.D. on 12/31/2020 at 19:06 Approved by: Lina Frank M.D. on 12/31/2020 at 19:07
--- NOTE | 2020-12-31 19:38 | ED.GENADULT ---
HPI - General Adult General Chief complaint: Urogenital-Male Stated complaint: prostate pain, burning with urination Time Seen by Provider: 12/31/20 18:41 Source: patient Mode of arrival: Ambulatory Limitations: no limitations History of Present Illness HPI narrative: 40-year-old gentleman with a history of schizophrenia, morbid obesity, hypertension, hyperlipidemia who presents with a week of abdominal pain in his left lower quadrant, left flank and description of radiating into the left groin perhaps into the left testicle. He reports no fevers, cough, chills, nausea, vomiting. He has not been dizzy he has noticed some mild burning with urination and reports moderate constipation. Related Data Home Medications Medication Instructions Recorded Confirmed Lancet: Device 1 ea MISCELLANEOUS DIRECTED 09/19/18 02/15/19 [Glucometer ] 1 ea MISCELLANEOUS DIRECTED 09/19/18 02/15/19 Previous Rx's Medication Instructions Recorded insulin regular hum U-500 conc 50 unit SUBCUT .COMPLEX #3 ml 11/07/18 BD Pen [place] #100 each 11/08/18 trazodone 100 mg tablet 200 mg PO BEDTIME #180 tab 12/04/18 losartan 50 mg tablet 50 mg PO BID #180 tab 01/14/19 blood sugar diagnostic #100 each 01/21/19 atorvastatin 10 mg tablet 10 mg PO BEDTIME #90 tab 02/19/19 prazosin 5 mg capsule 10 mg PO BEDTIME #180 cap 02/19/19 propranolol 40 mg tablet 40 mg PO TID #270 tab 02/19/19 ziprasidone HCl 60 mg capsule 60 mg PO BID #180 cap 02/19/19 insulin glargine 100 unit/mL (3 See Rx Instructions SUBCUT TID-QID 03/05/19 mL) subcutaneous pen #15 ml fluoxetine 40 mg capsule See Rx Instructions .ROUTE 05/20/19 .COMPLEX #60 capsule metformin 500 mg PO BID #20 tab 09/14/19 cyclobenzaprine 10 mg PO TID PRN #14 tab 07/06/20 hydrocodone-acetaminophen 1 tab PO Q4-6H PRN #10 tab 07/06/20 meclizine 25 mg PO BID-TID PRN #14 tab 10/24/20 Allergies Allergy/AdvReac Type Severity Reaction Status Date / Time No Known Drug Allergies Allergy Verified 12/31/20 16:39 Review of Systems Review of Systems Narrative: Remainder of complete review of systems is otherwise unremarkable except for that included in the HPI. Patient History Medical History Anxiety Bipolar affective disorder Chronic back pain Colitis Depression Diabetes, type 1.5, controlled, managed as type 2 Erectile dysfunction Hyperlipidemia Hypertension Low testosterone in male Mixed hyperlipidemia Morbid obesity with BMI of 50.0-59.9, adult PTSD (post-traumatic stress disorder) Schizophrenia Type II diabetes mellitus, well controlled Vitamin D deficiency Surgical History Hx of discectomy (2009) Hx of surgical procedure (2005) Family History Father Hyperlipidemia Mother Diabetes mellitus Hypertension Hyperlipidemia Grandfather Cancer Grandmother Cancer Social History household members: family Smoking Status: Never smoker second hand exposure: No alcohol intake: never substance use type: does not use additional social history: No current social issues Smoking Status: Never smoker alcohol intake frequency: holidays/special occasions only Substance Use Type: does not use Exam Narrative Exam Narrative: General: Morbidly obese, in no acute distress. Able to give a complete and coherent history. Well-nourished well-developed HEENT: Moist mucous membranes, normal sclera with reactive pupils, Respiratory: Lungs are clear to auscultation, no wheezing no rales no rhonchi. Full and symmetrical air movement Cardiac: Regular rate and rhythm no murmurs no bruits Abdomen: Soft, mild diffuse tenderness in all quadrants, no rebound or guarding good bowel tones, no flank pain Genitals: Mild tenderness into the left groin without obvious inguinal hernia and mild tenderness into both testicles without penile discharge Skin: Warm and dry, no rashes, no cellulitis mild intertrigo Neurologic: Grossly neurologically intact with no obvious asymmetries or abnormalities Extremities: No trauma, well perfused Psych: Cooperative, appropriate insight and affect Initial Vital Signs Initial Vital Signs: Vital Signs Temperature 96.9 F L 12/31/20 16:35 Pulse Rate 76 12/31/20 16:35 Respiratory Rate 16 12/31/20 16:35 Blood Pressure 160/91 H 12/31/20 16:35 Pulse Oximetry 97 12/31/20 16:35 Course Orders Ordered: Discontinued Medications Magnesium Citrate (Magnesium Citrate 300 Ml Solution) 300 ml PO NOW ONE Stop: 12/31/20 19:53 Last Admin: 12/31/20 19:57 Dose: 300 ml Documented by: FATOU Vital Signs Vital signs: Vital Signs - 8 hr 12/31/20 16:35 Temperature 96.9 F L Pulse Rate 76 Respiratory Rate 16 Blood Pressure 160/91 H Pulse Oximetry 97 Medical Decision Making Medical Records Medical records reviewed: Yes I reviewed the patient's medical records. Lab Data Lab results reviewed: Yes I reviewed the patient's lab results. Labs: Urine Dip Bedside Urine Glucose 250 mg/dl Bedside Urine Bilirubin - Negative Bedside Urine Ketone - Negative Urine Specific [place] 1.025 Bedside Urine Occult Blood +/- Bedside Urine pH 6.0 Bedside Urine Protein - Negative Bedside Urine Urobilinogen - Negative Bedside Urine Nitrite - Negative Bedside Urine Leukocytes - Negative Esterase Point of care testing: Urine Dip Bedside Urine Glucose 250 mg/dl Bedside Urine Bilirubin - Negative Bedside Urine Ketone - Negative Urine Specific [place] 1.025 Bedside Urine Occult Blood +/- Bedside Urine pH 6.0 Bedside Urine Protein - Negative Bedside Urine Urobilinogen - Negative Bedside Urine Nitrite - Negative Bedside Urine Leukocytes - Negative Esterase Imaging Data CT scan - abdomen/pelvis: Radiologist's Impression: FINDINGS: Image quality: Excellent. Lung bases: Unremarkable. Heart: No significant findings. URINARY: Kidneys are normal in size. No hydronephrosis. No nephrolithiasis. Ureters are nondilated with no calcifications. Bladder: Normal wall thickness. No stones. ABDOMEN: Liver: Liver is enlarged and demonstrates diffusely decreased density. Gallbladder: Is grossly unremarkable Biliary ducts: Unremarkable. Pancreas: Unremarkable. Spleen: Unremarkable. Adrenal Glands: Unremarkable. Stomach and Bowel: Stomach, small bowel loops, and colon are unremarkable. Normal appendix. Peritoneum: No abnormal intraperitoneal fluid. No free air. Ventral Wall: No hernia. Abdominal Nodes: No enlarged retroperitoneal or mesenteric lymph nodes. Vessels: Aorta and inferior vena cava are normal in size. PELVIS: Pelvic Organs: Unremarkable. Pelvic Nodes: Unremarkable. Miscellaneous: No inguinal hernias are seen. Bones: Unremarkable. Grossly unremarkable IMPRESSION: 1. No evidence of urinary tract calcification, nor obstruction. 2. Hepatic steatosis. 3. Normal appendix. Dictated by: Lina Frank M.D. on 12/31/2020 at 19:06 [facility] Narrative Medical decision making narrative: 40-year-old gentleman with was initially described as left lower quadrant pain that is in fact diffuse mild abdominal pain. He does report recent sexual encounter without condom use but does not have overt signs of sexually transmitted infection. He is tested for gonorrhea and chlamydia and will need to be contacted with results positive. No evidence of testicular torsion or inguinal hernia. CT scan does not suggest kidney stone and urinalysis is completely unremarkable suggesting absence of urinary tract infection or prostatitis. On overall review of the CT scan he does have a moderate amount of stool loading on the right side. At this point with no additional explanation for the diffuse abdominal pain it has been present for a week have suggested that he try magnesium citrate and see if fully cleaning out his bowels helps alleviate his overall pain. He is agreeable, questions are answered and he is safe for home discharge Discharge Plan Departure Patient Disposition: Home Clinical Impression: Abdominal pain in male Constipation Qualifiers: Constipation type: unspecified constipation type Qualified Code(s): K59.00 - Constipation, unspecified Instructions: DI for Abdominal Pain-Adult, DI for Constipation Activity Restrictions/Additional Instructions: Thank you for coming in today With a diffuse abdominal pain that is been there for a week I am less concerned about an acute surgical problem. The possibility of a kidney stone was entertained and we did do a CT scan of your belly. You do not have a kidney stone or other masses or concerns. You do have quite a bit of stool through your colon and constipation may be causing this diffuse pain. I sent you home with a bottle of magnesium citrate, please drink the whole thing this evening and see if cleaning out your bowels helps with this pain I wish you the best Prescriptions: No Action Humulin R U-500 (Conc) Kwikpen 500 unit/mL (3 mL) insulin pen 50 unit SUBCUT .COMPLEX Qty: 3 RF: 3 (DME) BD Pen [place] 0 .Route .MEDSUPPLY Qty: 100 RF: 3 trazodone 100 mg tablet 200 mg PO BEDTIME Qty: 180 RF: 3 losartan [Cozaar] 50 mg tablet 50 mg PO BID Qty: 180 RF: 0 (DME) blood sugar diagnostic strip See Dose Instructions .ROUTE .MEDSUPPLY Qty: 100 RF: 3 propranolol 40 mg tablet 40 mg PO TID Qty: 270 RF: 3 ziprasidone HCl [Geodon] 60 mg capsule 60 mg PO BID Qty: 180 RF: 3 prazosin [Minipress] 5 mg capsule 10 mg PO BEDTIME Qty: 180 RF: 3 atorvastatin [Lipitor] 10 mg tablet 10 mg PO BEDTIME Qty: 90 RF: 3 Basaglar KwikPen U-100 Insulin 100 unit/mL (3 mL) insulin pen See Rx Instructions subcut TID-QID Qty: 15 RF: 3 fluoxetine 40 mg capsule See Rx Instructions .ROUTE .COMPLEX Qty: 60 RF: 3 Lancet: Device 1 ea miscellaneous DIRECTED RF: 0 [Glucometer ] 1 ea miscellaneous DIRECTED RF: 0 metformin 500 mg tablet 500 mg PO BID Qty: 20 RF: 0 cyclobenzaprine 10 mg tablet 10 mg PO TID PRN (Reason: muscle spasm) Qty: 14 RF: 0 hydrocodone-acetaminophen 5-325 mg tablet 1 tab PO Q4-6H PRN (Reason: pain) Qty: 10 RF: 0 meclizine 25 mg tablet 25 mg PO BID-TID PRN (Reason: dizziness) Qty: 14 RF: 0
--- NOTE | 2020-12-31 19:41 | PC.NURSE ---
Stated he wants his prostrate checked.He has vague abd area tenderness.
[2020-12-31] MEDS: MAGNESIUM CITRATE 300 ML SOLUTION PO (19:57)
[2020-12-31 20:10] VITALS: BP 155/89; PULSE 72; RESP 18; O2SAT 98
== END 2020-12-31 20:10 | disposition home or self-care (01) ==
PROVIDERS: Emergency Provider Emergency Medicine
DX: R10.32 Left lower quadrant pain (principal); K59.00 Constipation, unspecified; N50.812 Left testicular pain; R30.0 Dysuria
CPT/HCPCS: 74176; 81003; 99284

== ENCOUNTER 2024-12-07 10:49 | Emergency (ER) | payer OTHER, SELFPAY ==
[2018-09-21 09:16] VITALS: BMI 51.2
[2024-12-07 11:10] VITALS: BP 180/86; PULSE 79; RESP 18; TEMP 36.6; O2SAT 98; BMI 75.5
[2024-12-07 12:27] LABS: Appearance Urine UA CLEAR; Bilirubin Urine UA NEGATIVE (NEGATIVE); Color Urine UA YELLOW; Glucose Urine UA NEGATIVE (Negative); Ketones Urine UA NEGATIVE (NEGATIVE); Leukocyte Esterase Urine UA NEGATIVE (NEGATIVE); Nitrite Urine UA NEGATIVE (Negative); Occult Blood Urine UA NEGATIVE (Negative); Protein Urine UA NEGATIVE (Negative); Specific Gravity Urine UA <=1.005 (1.000-1.035); Urobilinogen Urine UA 0.2 E.U./dL (0.2)
[2024-12-07 12:38] LABS: Amorphous Sediment Urine 1+; Bacteria Urine None Seen; Culture Indicated Urine Cult Not Indicated; RBC Urine None Seen (0-5/HPF); Squamous Epithelial Cell Urine 5-10 /HPF (0-5/HPF); Urine Volume 10mL (spun); WBC Urine None Seen (0-5/HPF)
--- NOTE | 2024-12-07 12:39 | ED_ITS ---
HPI - Male Genitourinary General Chief complaint: Urogenital-Male Stated complaint: STD Check Time Seen by Provider: 12/07/24 11:24 Source: patient Mode of arrival: Family Vehicle History of Present Illness HPI Narrative: 43-year-old male here today for STD concerns and concerns about penis irritation. States for 6 months or longer he has been dealing with a burning sensation and peeling skin on the end of his penis. States he also noticed a small lump on his penis. He has had frequent urination as well but no pain with urination. No penile discharge. No sores or lesions that he is aware of. He readily admits to having many sexual partners and never uses condoms. He denies any STD testing in the past few years. He would like a full panel of STD testing done today. He does have diabetes, insulin dependent. has continuous glucose monitoring and his sugars have been well controlled. His recent A1c was 6.7%. Related Data Home Medications Medication Instructions Recorded Confirmed Lancet: Device 1 ea miscellaneous DIRECTED 09/19/18 02/15/19 [Glucometer ] 1 ea miscellaneous DIRECTED 09/19/18 02/15/19 Previous Rx's Medication Instructions Recorded insulin regular hum U-500 conc 500 50 unit (0.1 mL) SUBCUT .COMPLEX 11/07/18 unit/mL(3 mL) subcut pen (Humulin #3 mL R U-500 (Conc) Insulin Kwikpen) BD Pen [place] #100 ea 11/08/18 trazodone 100 mg tablet 200 mg (2 x 100 mg) PO BEDTIME 12/04/18 #180 tabs losartan 50 mg tablet (Cozaar) 50 mg PO BID #180 tabs 01/14/19 blood sugar diagnostic #100 ea 01/21/19 atorvastatin 10 mg tablet (Lipitor) 10 mg PO BEDTIME #90 tabs 02/19/19 prazosin 5 mg capsule (Minipress) 10 mg (2 x 5 mg) PO BEDTIME #180 02/19/19 caps propranolol 40 mg tablet 40 mg PO TID #270 tabs 02/19/19 ziprasidone HCl 60 mg capsule 60 mg PO BID #180 caps 02/19/19 (Geodon) insulin glargine 100 unit/mL (3 See Rx Instructions SUBCUT TID-QID 03/05/19 mL) subcutaneous pen (Basaglar #15 mL KwikPen U-100 Insulin) fluoxetine 40 mg capsule See Rx Instructions .Route 05/20/19 .COMPLEX #60 caps metformin 500 mg tablet 500 mg PO BID #20 tabs 09/14/19 cyclobenzaprine 10 mg tablet 10 mg PO TID PRN muscle spasm #14 07/06/20 tabs hydrocodone 5 mg-acetaminophen 325 1 tab PO Q4-6H PRN pain #10 tabs 07/06/20 mg tablet meclizine 25 mg tablet 25 mg PO BID-TID PRN dizziness #14 10/24/20 tabs Allergies Allergy/AdvReac Type Severity Reaction Status Date / Time No Known Drug Allergies Allergy Verified 12/31/20 16:39 Review of Systems Review of Systems ROS Unobtainable: All systems reviewed & are unremarkable except as noted in HPI and below Patient History Medical History (Updated 12/07/24 @ 12:42 by Mary Cruz PA-C) Diabetes, type 1.5, controlled, managed as type 2 Mixed hyperlipidemia Bipolar affective disorder Hyperlipidemia Hypertension Vitamin D deficiency Erectile dysfunction Colitis Anxiety Chronic back pain PTSD (post-traumatic stress disorder) Depression Schizophrenia Morbid obesity with BMI of 50.0-59.9, adult Low testosterone in male Type II diabetes mellitus, well controlled Surgical History Hx of surgical procedure (2005) Hx of discectomy (2009) Family History Father Hyperlipidemia Mother Diabetes mellitus Hypertension Hyperlipidemia Grandfather Cancer Grandmother Cancer Social History household members: family second hand exposure: No alcohol intake: never substance use type: does not use additional social history: No current social issues alcohol intake frequency: holidays/special occasions only Exam Narrative Exam Narrative: GENERAL: [43] year old patient appears stated age. Well-developed patient, in no acute distress. obese HEAD: Atraumatic. Normocephalic. EYES: Pupils equal round and reactive. Extraocular motions intact. No scleral icterus. No injection or drainage. ENT: Nose without bleeding, purulent drainage. Throat without erythema, tonsill ar hypertrophy or exudate. Airway patent. NECK: Trachea midline. Non tender RESPIRATORY: respiratory rate and effort normal GASTROINTESTINAL: Abdomen soft, non-tender, nondistended. SKIN: No rash or erythema of visible areas : inspection of the penis reveals no lesions, sores, chancre. No significant redness, swelling, discharge. tiny little mobile cyst noted without any tenderness. At the head of the shaft under the glans penis there is slight redness and this is the area of patient's concern but overall the area appears relatively normal. Initial Vital Signs Initial Vital Signs: Vital Signs Temperature 97.8 F 12/07/24 11:10 Pulse Rate 79 12/07/24 11:10 Respiratory Rate 18 12/07/24 11:10 Blood Pressure 180/86 H 12/07/24 11:10 Pulse Oximetry 98 12/07/24 11:10 Oxygen Delivery Method Room Air 12/07/24 11:10 Course Orders Ordered: ED Orders 12/07/24 12:17 Chlamydia Gonorrhea PCR -URINE Stat Urinalysis and Microscopic Stat 12/07/24 12:37 HIV 1 & 2 Ab/Ag 4th Gen Combo Stat Hep C Virus Ab w/Reflex Quant Stat Hepatitis B Surface Antigen Stat RPR W Reflex to Titer Stat Vital Signs Vital signs: Vital Signs - 8 hr 12/07/24 11:10 12/07/24 12:49 Temperature 97.8 F Pulse Rate 79 78 Respiratory Rate 18 16 Blood Pressure 180/86 H 152/89 H Pulse Oximetry 98 98 Oxygen Delivery Method Room Air Room Air MDM - Male Genitourinary Lab Data Labs: Lab Results 12/07/24 12/07/24 Range/Units 12:17 12:37 Urine Color Yellow Urine Appearance Clear Urine pH 6.0 (4.5-8.0) Ur Specific [place] <=1.005 (1.000-1.035) Urine Protein Negative (Negative) Urine Glucose (UA) Negative (Negative) g/dL Urine Ketones Negative (NEGATIVE) Urine Occult Blood Negative (Negative) Urine Nitrate Negative (Negative) Urine Bilirubin Negative (NEGATIVE) Urine Urobilinogen 0.2 (0.2) E.U./dL Ur Leukocyte Esterase Negative (NEGATIVE) Urine RBC None seen (0-5/HPF) Urine WBC None seen (0-5/HPF) Ur Squamous Epith Cells 5-10 /hpf H (0-5/HPF) Amorphous Sediment 1+ Urine Bacteria None seen (None) Ur Culture Indicated? Cult not indicated Vol Urine Centrifuged 10ml (spun) RPR w/Rflx to Titer Non reactive (Non Reactive) Ur Chlamydia DNA (PCR) Not detected Hep Bs Antigen Negative (NEGATIVE) s/c Hepatitis C Antibody Negative (NEGATIVE) s/c HIV 1&2 Ab/P24 Ag 4thGn Negative (NEGATIVE) N gonorrhoeae DNA (PCR) Not detected MDM Narrative Medical decision making narrative: Differential includes but not limited to gonorrhea, chlamydia, balanitis, contact dermatitis inspection of the area of concern is relatively unremarkable. The skin is a little pink but there is no lesions of any sort other than a tiny little cyst and there is no peeling of the skin or discharge. He is obese and is having urinary frequency and states that the frequent urination seems to be irritating his skin so I recommend that he use a kinjal bottle to rinse the area after every urination and then pat dry. We will also do a trial of clotrimazole for balanitis. If not improving in the next 2 weeks he should follow up with his PCP to discuss. We also did a full STD panel including gonorrhea and chlamydia for his urinary frequency. His urinalysis is normal today. Discharge Plan Departure Patient Disposition: Home Clinical Impression: Balanitis, Screen for STD (sexually transmitted disease) Instructions: DI for Balanitis Activity Restrictions/Additional Instructions: Thank you for choosing us to care for you today. Your urine test indicated no urinary tract infection today. Your STD tests are still pending and we will call you with the results when they are available. You have been prescribed clotrimazole cream to apply twice daily to the area. After urinating, please rinse the penis and pat dry each time. Please do this before applying the medication as well. If not improving in the next 2 weeks please follow up with your primary care provider to discuss the next step. Prescriptions: New clotrimazole 1 % cream 1 applic topical BID 14 Days Qty: 45 0RF No Action Humulin R U-500 (Conc) Kwikpen 500 unit/mL (3 mL) insulin pen 50 unit SUBCUT .COMPLEX Qty: 3 3RF Rx Instructions: Inject 1 unit subcut at meals. (DME) BD Pen [place] 0 .Route .MEDSUPPLY Qty: 100 3RF Dose Instruction: As directed Rx Instructions: Use as directed with lantus insulin pen trazodone 100 mg tablet 200 mg PO BEDTIME Qty: 180 3RF losartan [Cozaar] 50 mg tablet 50 mg PO BID Qty: 180 0RF (DME) blood sugar diagnostic strip See Dose Instructions .ROUTE .MEDSUPPLY Qty: 100 3RF Dose Instruction: As directed Rx Instructions: Test 3-5 dailys propranolol 40 mg tablet 40 mg PO TID Qty: 270 3RF ziprasidone HCl [Geodon] 60 mg capsule 60 mg PO BID Qty: 180 3RF prazosin [Minipress] 5 mg capsule 10 mg PO BEDTIME Qty: 180 3RF atorvastatin [Lipitor] 10 mg tablet 10 mg PO BEDTIME Qty: 90 3RF Basaglar KwikPen U-100 Insulin 100 unit/mL (3 mL) insulin pen See Rx Instructions subcut TID-QID Qty: 15 3RF Dose Instruction: 10-30 Units subcut TID-QID; Rx Instructions: 10-30 Units subcut TID-QID; fluoxetine 40 mg capsule See Rx Instructions .ROUTE .COMPLEX Qty: 60 3RF Dose Instruction: Take 2 capsules by mouth once daily. Rx Instructions: Take 2 capsules by mouth once daily. Lancet: Device 1 ea miscellaneous DIRECTED [Glucometer ] 1 ea miscellaneous DIRECTED metformin 500 mg tablet 500 mg PO BID Qty: 20 0RF cyclobenzaprine 10 mg tablet 10 mg PO TID PRN (Reason: muscle spasm) Qty: 14 0RF hydrocodone-acetaminophen 5-325 mg tablet 1 tab PO Q4-6H PRN (Reason: pain) Qty: 10 0RF meclizine 25 mg tablet 25 mg PO BID-TID PRN (Reason: dizziness) Qty: 14 0RF Stand Alone Forms: Patient Portal/API/Survey
[2024-12-07 12:49] VITALS: BP 152/89; PULSE 78; RESP 16; O2SAT 98
[2024-12-07 14:07] LABS: Urine N gonorrhoeae NOT DETECTED
[2024-12-07 14:12] LABS: Urine Chlamydia NOT DETECTED
[2024-12-07 15:24] LABS: HIV 1 & 2 Ab/Ag 4th Gen Combo NEGATIVE (NEGATIVE); Hep C Virus Ab w/Reflex Quant NEGATIVE s/c (NEGATIVE); Hepatitis B Surface Antigen NEGATIVE s/c (NEGATIVE)
[2024-12-08 06:08] LABS: RPR Screen Non Reactive (Non Reactive)
== END 2024-12-07 12:50 | disposition home or self-care (01) ==
PROVIDERS: Emergency Provider Physician Assistant
DX: N48.1 Balanitis (principal); Z11.3 Encounter for screening for infections with a predominantly sexual mode of transmission
CPT/HCPCS: 81001; 86592; 86803; 87340; 87389; 87491; 87591; 99282

== ENCOUNTER 2025-02-11 17:18 | Emergency (ER) | payer OTHER, SELFPAY ==
[2018-09-21 09:16] VITALS: BMI 51.2
--- NOTE | 2025-02-11 17:34 | EKG_ITS ---
[address] [address] Test Date: 2025-02-11 Pat Name: Gustavo Mack Department: [facility] Room: Gender: Male Transportation Mechanic: MERI : 1980 Requested By: Order Number: [id number] Reading MD: Mark Ibarra Measurements Intervals [place]ana Rate: 87 P: 39 WY: 202 QRS: -7 QRSD: 108 T: 36 QT: 382 QTc: 459 Interpretive Statements Normal sinus rhythm Electronically Signed On 02-15-2025 9:13:41 PDT by Mark Ibarra
[2025-02-11 17:35] VITALS: BP 198/111; PULSE 87; RESP 20; TEMP 37.1; O2SAT 98; BMI 52.7
== END 2025-02-11 19:24 | disposition left against medical advice (07) ==
PROVIDERS: Emergency Provider Emergency Medicine
DX: R10.10 Upper abdominal pain, unspecified (principal)
CPT/HCPCS: 93005; 99281

== ENCOUNTER 2025-05-08 09:12 | Emergency (ER) | payer OTHER, SELFPAY ==
[2018-09-21 09:16] VITALS: BMI 51.2
[2025-05-08 09:16] VITALS: BP 178/84; PULSE 59; RESP 15; TEMP 36.1; O2SAT 98; BMI 54.7
--- NOTE | 2025-05-08 09:36 | ED.ABDPAIN ---
HPI - Abdominal Pain General Chief Complaint: Abdominal Pain Stated Complaint: Stomach pain 2 weeks Time Seen by Provider: 05/08/25 09:13 Source: patient Mode of arrival: Ambulatory History of Present Illness HPI narrative: Patient here for periumbilical burning sharp pain that is constant for the past 2 weeks. No nausea or vomiting. No no urinary complaints no black or bloody stools. No prior abdominal surgical history. No prior history of acid reflex ulcer. Patient has not tried any medications for this. Has not seen any providers for this. Patient in no distress. Pain does not radiate. Pain is constant. Related Data Home Medications ?Medication ?Instructions ?Recorded ?Confirmed Lancet: Device 1 ea miscellaneous DIRECTED 09/19/18 02/15/19 [Glucometer ] 1 ea miscellaneous DIRECTED 09/19/18 02/15/19 Previous Rx's ?Medication ?Instructions ?Recorded insulin regular hum U-500 conc 500 50 unit (0.1 mL) SUBCUT .COMPLEX 11/07/18 unit/mL(3 mL) subcut pen (Humulin #3 mL R U-500 (Conc) Insulin Kwikpen) BD Pen [place] #100 ea 11/08/18 trazodone 100 mg tablet 200 mg (2 x 100 mg) PO BEDTIME 12/04/18 #180 tabs losartan 50 mg tablet (Cozaar) 50 mg PO BID #180 tabs 01/14/19 blood sugar diagnostic #100 ea 01/21/19 atorvastatin 10 mg tablet (Lipitor) 10 mg PO BEDTIME #90 tabs 02/19/19 prazosin 5 mg capsule (Minipress) 10 mg (2 x 5 mg) PO BEDTIME #180 02/19/19 caps propranolol 40 mg tablet 40 mg PO TID #270 tabs 02/19/19 ziprasidone HCl 60 mg capsule 60 mg PO BID #180 caps 02/19/19 (Geodon) insulin glargine 100 unit/mL (3 See Rx Instructions SUBCUT TID-QID 03/05/19 mL) subcutaneous pen (Basaglar #15 mL KwikPen U-100 Insulin) fluoxetine 40 mg capsule See Rx Instructions .Route 05/20/19 .COMPLEX #60 caps metformin 500 mg tablet 500 mg PO BID #20 tabs 09/14/19 cyclobenzaprine 10 mg tablet 10 mg PO TID PRN muscle spasm #14 07/06/20 tabs hydrocodone 5 mg-acetaminophen 325 1 tab PO Q4-6H PRN pain #10 tabs 07/06/20 mg tablet meclizine 25 mg tablet 25 mg PO BID-TID PRN dizziness #14 10/24/20 tabs ondansetron 4 mg disintegrating 4 mg PO Q6H PRN nausea and 05/08/25 tablet vomiting #20 tabs pantoprazole 40 mg tablet,delayed 40 mg PO DAILY #30 tabs 05/08/25 release (Protonix) sucralfate 1 gram tablet (Carafate) 1 g PO QAC #20 tabs 05/08/25 Allergies Allergy/AdvReac Type Severity Reaction Status Date / Time No Known Drug Allergies Allergy Verified 05/08/25 09:16 Review of Systems Review of Systems Narrative: GENERAL: Negative chills, fatigue, malaise, fever, sweats. HEENT: Negative sinus pain, ear pain, sore throat RESPIRATORY: Negative dyspnea, cough CARDIOVASCULAR: Negative chest pain, palpitations GASTROINTESTINAL: Negative vomiting, nausea, positive abdominal pain : Negative dysuria, frequency, hematuria MUSCULOSKELETAL: Negative muscle or bony pain SKIN: Negative rash, skin lesions NEUROLOGIC: Negative weakness, numbness ROS Unobtainable: All systems reviewed & are unremarkable except as noted in HPI and below Patient History Medical History (Updated 05/08/25 @ 11:06 by Ayo Aguirre MD) Diabetes, type 1.5, controlled, managed as type 2 Mixed hyperlipidemia Bipolar affective disorder Hyperlipidemia Hypertension Vitamin D deficiency Erectile dysfunction Colitis Anxiety Chronic back pain PTSD (post-traumatic stress disorder) Depression Schizophrenia Morbid obesity with BMI of 50.0-59.9, adult Low testosterone in male Type II diabetes mellitus, well controlled Surgical History Hx of surgical procedure (2005) Hx of discectomy (2009) Family History Father Hyperlipidemia Mother Diabetes mellitus Hypertension Hyperlipidemia Grandfather Cancer Grandmother Cancer Social History household members: family Smoking Status: Unknown if ever smoked second hand exposure: No alcohol intake: never substance use type: does not use additional social history: No current social issues Smoking Status: Unknown if ever smoked alcohol intake frequency: holidays/special occasions only Exam Narrative Exam Narrative: GENERAL: in no distress, not toxic not dyspneic HEAD: Normocephalic. EYES: Pupils equal round ENT: Mucous membranes moist. NECK: Trachea midline. CARDIOVASCULAR: Regular rate and rhythm RESPIRATORY: Clear to auscultation. Breath sounds equal bilaterally. No wheezes, rales, or rhonchi. GASTROINTESTINAL: Abdomen soft, reproducible supraumbilical and below epigastric region tenderness. No peritoneal signs no guarding or rebound. Bowel sounds are present. BACK: No flank tenderness. EXTREMITIES: No gross deformities. NEURO: AOx4. Clear speech SKIN: Warm and dry PSYCH: Not anxious, is cooperative Initial Vital Signs Initial Vital Signs: Vital Signs Temperature 97.0 F L 05/08/25 09:16 Pulse Rate 59 L 05/08/25 09:16 Respiratory Rate 15 05/08/25 09:16 Blood Pressure 178/84 H 05/08/25 09:16 Pulse Oximetry 98 05/08/25 09:16 Oxygen Delivery Method Room Air 05/08/25 09:16 Course Orders Ordered: ED Orders 05/08/25 09:35 Complete Blood Count AUTO DIFF Stat Comprehensive Metabolic Panel Stat Lipase Stat Discontinued Medications Al Hydrox/Mg Hydrox/Simethicone 20 ml/ Lidocaine HCl 15 ml 0 ml PO NOW ONE Stop: 05/08/25 09:41 Last Admin: 05/08/25 09:46 Dose: 30 ml Documented By: ANYA Ondansetron HCl (Ondansetron 4 Mg/2 Ml Inj) 4 mg IV NOW PRN PRN Reason: Nausea And Vomiting Last Admin: 05/08/25 09:46 Dose: 4 mg Documented By: ANYA Ondansetron HCl (Ondansetron 4 Mg Odt) 4 mg PO NOW PRN PRN Reason: Nausea And Vomiting Pantoprazole Sodium (Pantoprazole 40 Mg Vial) 40 mg IV NOW ONE Stop: 05/08/25 09:41 Last Admin: 05/08/25 09:46 Dose: 40 mg Documented By: ANYA Vital Signs Vital signs: Vital Signs - 8 hr 05/08/25 09:16 05/08/25 09:38 05/08/25 09:42 Temperature 97.0 F L Pulse Rate 59 L 59 L 60 Respiratory Rate 15 Blood Pressure 178/84 H Pulse Oximetry 98 97 97 Oxygen Delivery Method Room Air 05/08/25 09:42 05/08/25 11:23 Temperature Pulse Rate 58 L Respiratory Rate 18 Blood Pressure 137/81 136/78 Pulse Oximetry 95 Oxygen Delivery Method Room Air MDM - Abdominal Pain Lab Data 05/08/25 09:35 05/08/25 09:35 Labs: Lab Results 05/08/25 Range/Units 09:35 WBC 5.2 (4.5-11.0) X10^3/uL RBC 3.88 L (4.5-5.9) X10^6/uL Hgb 12.9 L (13.5-17.5) g/dL Hct 36.7 L (41-53) % MCV 94.5 (80-100) fL MCH 33.2 (26-34) PG MCHC 35.1 (30-36) % RDW 14.6 (11.6-14.8) % Plt Count 96 L (150-400) X10^3/uL Neut % (Auto) 53.6 (50-75) % Lymph % (Auto) 38.4 (25-40) % [place] % (Auto) 6.5 (3-14) % Eos % (Auto) 0.3 L (2-4) % Baso % (Auto) 1.2 (0-2) % Neut # (Auto) 2800 (9475-2539) /uL Lymph # (Auto) 2000 (1895-6557) /uL [place] # (Auto) 300 (0-900) /uL Eos # (Auto) 0 (0-450) /uL Baso # (Auto) 100 (0-100) /uL Sodium 134 L (137-145) mmol/L Potassium 3.8 (3.4-5.1) mmol/L Chloride 98 (98-107) mmol/L Carbon Dioxide 27 (22-32) mmol/L BUN 10 (9-20) mg/dL Creatinine 0.69 (0.66-1.25) mg/dL Estimated GFR > 60 (>60) mL/min BUN/Creatinine Ratio 14.5 (6-22) Glucose 122 H (70-99) mg/dL Calcium 8.6 (8.4-10.2) mg/dL Total Bilirubin 0.8 (0.2-1.3) mg/dL AST 35 (17-59) IU/L ALT 37 (<50) IU/L Alkaline Phosphatase 81 (38-126) U/L Total Protein 7.8 (6.3-8.2) g/dL Albumin 4.6 (3.5-5.0) g/dL Globulin 3.2 (1.7-4.1) g/dL Albumin/Globulin Ratio 1.4 (1.0-2.8) Lipase 253 (23-300) U/L Point of care testing: Urine Dip Bedside Urine Glucose Negative Bedside Urine Bilirubin - Negative Bedside Urine Ketone - Negative Urine Specific [place] 1.005 Bedside Urine Occult Blood - Negative Bedside Urine pH 6.0 Bedside Urine Protein - Negative Bedside Urine Urobilinogen - Negative Bedside Urine Nitrite - Negative Bedside Urine Leukocytes - Negative Esterase MDM Narrative Medical decision making narrative: Patient here for periumbilical burning sharp pain that is constant for the past 2 weeks. No nausea or vomiting. No no urinary complaints no black or bloody stools. No prior abdominal surgical history. No prior history of acid reflex ulcer. Patient has not tried any medications for this. Has not seen any providers for this. Patient in no distress. Pain does not radiate. Pain is constant. MDM After history and exam, CBC CMP lipase Zofran GI cocktail Protonix Differential considered: Includes but not limited to GERD acid reflux gastritis pancreatitis appendicitis bowel obstruction Medical records reviewed: No recent visit for this complaint Lab Test results independently reviewed as above. Pertinent findings: WBC 5.2 hemoglobin 12.9 sodium 134 potassium 3.8 BUN 10 creatinine 0.69 GFR greater than 60 AST 35 ALT 37, lipase 253 Imaging studies independently reviewed: None indicated at this time. Exam is reassuring laboratory studies reassuring. Pain relief with Maalox/GI cocktail, likely gastritis Consultations: None indicated at this time. Re-evaluations: 11:04 a.m.. Reviewed results with patient. He is pain-free after GI cocktail and Protonix. Reviewed with him likely gastritis. No imaging indicated at this time. He desires discharge home. He does admit enjoying eating spicy foods. Reviewed with him this will make his stomach hurt more. You will discontinue spicy foods. Return precautions reviewed and he desires discharge home. Discussion: Appropriate for discharge home. Exam is reassuring. Return precautions reviewed with patient. Pain-free at time of discharge with conservative treatment. Likely gastritis. Referral for General surgery for outpatient endoscopy given. Patient does have a family doctor to follow up with. Diagnosis: Epigastric pain Discharge Plan Departure Patient Disposition: Home Clinical Impression: Abdominal pain Qualifiers: Abdominal location: epigastric Qualified Code(s): R10.13 - Epigastric pain Instructions: DI for Gastritis, DI for Abdominal Pain-Adult Activity Restrictions/Additional Instructions: I am glad you are feeling better. You have likely developed gastritis/acid reflux causing your abdominal pain. See family doctor or call provided general surgery office to schedule endoscopy your stomach. No fried fatty greasy foods or carbonated drinks as this may irritate your stomach more. Return if worse if any questions or concerns. Your laboratory studies are reassuring today. Prescriptions: New sucralfate [Carafate] 1 gram tablet 1 g PO QAC Qty: 20 0RF pantoprazole [Protonix] 40 mg tablet,delayed release (DR/EC) 40 mg PO DAILY Qty: 30 0RF ondansetron 4 mg tablet,disintegrating 4 mg PO Q6H PRN (Reason: nausea and vomiting) Qty: 20 0RF No Action Humulin R U-500 (Conc) Kwikpen 500 unit/mL (3 mL) insulin pen 50 unit SUBCUT .COMPLEX Qty: 3 3RF Rx Instructions: Inject 1 unit subcut at meals. (DME) BD Pen [place] 0 .Route .MEDSUPPLY Qty: 100 3RF Dose Instruction: As directed Rx Instructions: Use as directed with lantus insulin pen trazodone 100 mg tablet 200 mg PO BEDTIME Qty: 180 3RF losartan [Cozaar] 50 mg tablet 50 mg PO BID Qty: 180 0RF (DME) blood sugar diagnostic strip See Dose Instructions .ROUTE .MEDSUPPLY Qty: 100 3RF Dose Instruction: As directed Rx Instructions: Test 3-5 dailys propranolol 40 mg tablet 40 mg PO TID Qty: 270 3RF ziprasidone HCl [Geodon] 60 mg capsule 60 mg PO BID Qty: 180 3RF prazosin [Minipress] 5 mg capsule 10 mg PO BEDTIME Qty: 180 3RF atorvastatin [Lipitor] 10 mg tablet 10 mg PO BEDTIME Qty: 90 3RF Basaglar KwikPen U-100 Insulin 100 unit/mL (3 mL) insulin pen See Rx Instructions subcut TID-QID Qty: 15 3RF Dose Instruction: 10-30 Units subcut TID-QID; Rx Instructions: 10-30 Units subcut TID-QID; fluoxetine 40 mg capsule See Rx Instructions .ROUTE .COMPLEX Qty: 60 3RF Dose Instruction: Take 2 capsules by mouth once daily. Rx Instructions: Take 2 capsules by mouth once daily. Lancet: Device 1 ea miscellaneous DIRECTED [Glucometer ] 1 ea miscellaneous DIRECTED metformin 500 mg tablet 500 mg PO BID Qty: 20 0RF cyclobenzaprine 10 mg tablet 10 mg PO TID PRN (Reason: muscle spasm) Qty: 14 0RF hydrocodone-acetaminophen 5-325 mg tablet 1 tab PO Q4-6H PRN (Reason: pain) Qty: 10 0RF meclizine 25 mg tablet 25 mg PO BID-TID PRN (Reason: dizziness) Qty: 14 0RF Referrals: Paulo Arreguin MD [Physician, General Surgery] Javan Fonseca MD [Primary Care Provider, Family Practice] Stand Alone Forms: Patient Portal/API
[2025-05-08 09:38] VITALS: PULSE 59; O2SAT 97
[2025-05-08 09:39] LABS: Add Manual Diff / Slide Review NO; Hematocrit 36.7 % (41-53); Hemoglobin 12.9 g/dL (13.5-17.5); Lymphocytes Absolute Auto 2000 /uL (1100-4500); Mean Corpuscular HGB Conc 35.1 % (30-36); Mean Corpuscular Hemoglobin 33.2 PG (26-34); Mean Corpuscular Volume 94.5 fL (80-100); Platelet Count 96 X10^3/uL (150-400)
[2025-05-08 09:42] VITALS: BP 137/81; PULSE 60; O2SAT 97
[2025-05-08] MEDS: ONDANSETRON 4 MG/2 ML INJ IV (09:46)
[2025-05-08] MEDS: PANTOPRAZOLE 40 MG VIAL IV (09:46)
[2025-05-08] MEDS: MAG HYDROX/ALUMINUM/SIMETH SUS 20 ML, LIDOCAINE VISCOUS 2% 15 ML PO (09:46)
[2025-05-08 09:56] LABS: Alanine Aminotransferase 37 IU/L (<50); Albumin 4.6 g/dL (3.5-5.0); Albumin Globulin Ratio 1.4 (1.0-2.8); Alkaline Phosphatase 81 U/L (38-126); Blood Urea Nitrogen 10 mg/dL (9-20); Calcium 8.6 mg/dL (8.4-10.2); Carbon Dioxide 27 mmol/L (22-32); Chloride 98 mmol/L (98-107); Estimated Glomerular Filt Rate > 60 mL/min (>60); Globulin 3.2 g/dL (1.7-4.1); Glucose 122 mg/dL (70-99); HEMOLYSIS < 15 (0-50); Lipase 253 U/L (23-300); Potassium 3.8 mmol/L (3.4-5.1); Sodium 134 mmol/L (137-145); Total Protein 7.8 g/dL (6.3-8.2)
[2025-05-08 11:23] VITALS: BP 136/78; PULSE 58; RESP 18; O2SAT 95
== END 2025-05-08 11:32 | disposition home or self-care (01) ==
PROVIDERS: Emergency Provider Emergency Medicine; PCP Family Medicine
DX: R10.13 Epigastric pain (principal)
CPT/HCPCS: 36415; 80053; 81003; 83690; 85025; 96374; 96375; 99284; J2405; J2470